=== PATIENT | male | born 1960 | race Caucasian/White ===

== ENCOUNTER 2020-07-16 02:39 | Inpatient (IN) | payer MEDICAID, SELFPAY ==
[~2020-07-16] VITALS: Ht 177.8 cm; Wt 95.5 kg
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
[2020-07-16] MEDS ORDERED: PIPERACILLIN/TAZO/PMX 3.375GM 50 ML ONE (02:55)
[2020-07-16] MEDS ORDERED: ACETAMINOPHEN 500 MG TABLET ONE (02:56)
[2020-07-16] MEDS ORDERED: ONDANSETRON 2MG/ML, 2ML IVPush ONE (03:00)
[2020-07-16] MEDS ORDERED: VANCOMYCIN PER PHARMACY MC PRN ×2 (03:00→04:30)
[2020-07-16] MEDS ORDERED: VANCOMYCIN 1,800 MG in SODIUM CHLORIDE 0.9% 250 ML IV ONE (03:00)
[2020-07-16] MEDS ORDERED: PIPERACILLIN/TAZO/PMX 3.375GM 50 ML IV ONE (03:00)
[2020-07-16] MEDS ORDERED: MORPHINE SULFATE 4 MG/ML, 1ML IVPush ONE (03:00)
[2020-07-16] MEDS ORDERED: ACETAMINOPHEN 500 MG TABLET PO ONE (03:00)
[2020-07-16] MEDS ORDERED: MORPHINE SULFATE 4 MG/ML, 1ML ONE (03:04)
[2020-07-16] MEDS ORDERED: ONDANSETRON 2MG/ML, 2ML ONE (03:04)
[2020-07-16 03:51] LABS: ANION GAP 10 mmol/L (5-15); CALCIUM 9.5 mg/dL (8.5-10.1); CHLORIDE 100 mmol/L (98-107); CREATININE 1.32 mg/dL (0.7-1.3)
--- NOTE | 2020-07-16 03:52 | NUR ---
Charting continued on [employer] at this time. See paper charting for downtime notes and medication administered up until this time.
[2020-07-16 03:55] LABS: MEAN CORPUSCULAR HGB CONC 33.3 g/dL (33.2-36.2); MEAN PLATELET VOLUME 9.1 fL (7.4-10.4); PLATELET COUNT 235 x10^3/uL (130-400); RED BLOOD COUNT 5.17 x10^6/uL (4.38-5.82)
--- NOTE | 2020-07-16 04:12 | NUR ---
PRAVIN CERVANTES, PTS , CALLED AND WOULD LIKE PHONE NUMBER ON CHART -
[2020-07-16 04:18] LABS: MD YES
[2020-07-16 04:20] LABS: <PLATELET ESTIMATE> ADEQUATE; <PLT MORPHOLOGY> NORMAL PLT MORPH; <RBC MORPHOLOGY> NORMAL; BAND#(MANUAL) 2.26 x10^3/uL; BANDS%(MANUAL) 11 % (0-7); LYMPH#(MANUAL) 1.64 x10^3/uL (1-3.4); LYMPHS% (MANUAL) 8 % (22-44); MONOS#(MANUAL) 0.41 x10^3/uL (0.3-2.7); MONOS% (MANUAL) 2 % (2-9); SEGS% (MANUAL) 79 % (42-75)
[2020-07-16] MEDS ORDERED: PROMETHAZINE 25 MG/ML, 1ML IM PRN (04:30)
[2020-07-16] MEDS ORDERED: BISACODYL 10 MG SUPP PR PRN (04:30)
[2020-07-16] MEDS ORDERED: OMNIPAQUE 350 MG/ML, 100ML BOTTLE ONE (04:30)
[2020-07-16] MEDS ORDERED: SODIUM CHLORIDE 0.9% 1,000ML IVBOLUS ONE (04:30)
[2020-07-16] MEDS ORDERED: ONDANSETRON ODT 4 MG PO PRN (04:30)
[2020-07-16] MEDS ORDERED: ONDANSETRON 2MG/ML, 2ML IVPush PRN (04:30)
[2020-07-16] MEDS ORDERED: HEPARIN 5,000 UNITS/ML, 1ML ONE (04:46)
[2020-07-16] MEDS ORDERED: NICOTINE 7 MG/24 HR PATCH.TD24 ONE (04:46)
[2020-07-16] MEDS: HEPARIN 5,000 UNITS/ML, 1ML SQ SCH ×3 (04:53→21:08)
[2020-07-16] MEDS: SODIUM CHLORIDE 0.9% 1,000 ML IV SCH ×2 (04:53→06:24)
[2020-07-16 04:58] LABS: HCT (SEDRATE) 44.8 % (39.2-51.8)
[2020-07-16] MEDS ORDERED: INSULIN GLARGINE 100 UNITS/ML, PEN SQ-INSULIN SCH (05:00)
--- NOTE | 2020-07-16 05:05 | NUR ---
Called and requested tanisha pen from pharmacy, was informed we would be called once it is ready
[2020-07-16] MEDS ORDERED: NEOSPORIN OINT. PKT 1 PACKET ONE (05:10)
[2020-07-16 05:12] LABS: FREE T4 (FREE THYROXINE) 1.28 ng/dL (0.76-1.46)
[2020-07-16] MEDS: NICOTINE 7 MG/24 HR PATCH.TD24 TD SCH (05:24)
--- NOTE | 2020-07-16 05:30 | NUR ---
Wound care provided to right ankle. wounds cleansed and bacatracin applied with nonstick dressing and gauze. Wound cultured and sent to lab.
--- NOTE | 2020-07-16 05:44 | NUR ---
Called to update pt , Rebeca, per request. Unavailable at this time, brief voicemail left informed her pt is now being admitted inpatient.
--- NOTE | 2020-07-16 05:45 | NUR ---
Report called to Nicole OCONNOR to assume care upon transfer to [facility]
[2020-07-16 06:07] VITALS: BP 115/73
[2020-07-16] MEDS ORDERED: PHARMACOKINETIC MONITORING MC PRN (06:30)
[2020-07-16] MEDS ORDERED: PHARMACOKINETIC CONSULTATION MC ONE (06:30)
[2020-07-16 07:18] VITALS: BP 123/78
[2020-07-16] MEDS: INSULIN LISPRO 100 UNITS/ML, PEN SQ-INSULIN SCH ×4 (07:45→21:10)
[2020-07-16] MEDS: PIPERACILLIN/TAZO/PMX 3.375GM 50 ML IV SCH ×3 (09:52→21:26)
[2020-07-16] MEDS: INSULIN GLARGINE 100 UNITS/ML, PEN SQ-INSULIN SCH ×2 (10:22→21:09)
[2020-07-16] MEDS ORDERED: IBUPROFEN 800 MG TABLET PO PRN (11:00)
[2020-07-16] MEDS ORDERED: IBUP-1223 PO (11:05)
[2020-07-16] MEDS: morphine SULFATE 10 MG/ML, 1ML IVPush PRN ×2 (11:54→18:05)
[2020-07-16 15:14] VITALS: BP 131/82
[2020-07-16] MEDS: OXYcodone IR 5MG TABLET PO PRN (17:29)
[2020-07-16 18:45] VITALS: BP 147/78
[2020-07-16] MEDS ORDERED: VANCOMYCIN 1,800 MG in SODIUM CHLORIDE 0.9% 250 ML IV SCH (21:00)
[2020-07-16 21:34] VITALS: BP 126/79
[2020-07-17 00:23] VITALS: BP 123/83
[2020-07-17] MEDS: PIPERACILLIN/TAZO/PMX 3.375GM 50 ML IV SCH ×2 (03:39→09:11)
[2020-07-17 05:29] LABS: MEAN CORPUSCULAR HEMOGLOBIN 28.9 pg (27.5-34.5); MEAN CORPUSCULAR VOLUME 87.8 fL (81-97); MEAN PLATELET VOLUME 8.8 fL (7.4-10.4); PLATELET COUNT 175 x10^3/uL (130-400); RED BLOOD COUNT 4.77 x10^6/uL (4.38-5.82); RED CELL DISTRIBUTION WIDTH 13.9 % (9.4-14.8)
[2020-07-17] MEDS: HEPARIN 5,000 UNITS/ML, 1ML SQ SCH ×3 (05:29→23:00)
[2020-07-17 05:36] LABS: CHLORIDE 103 mmol/L (98-107)
[2020-07-17 05:45] LABS: ALANINE AMINOTRANSFERASE 52 U/L (12-78); ALBUMIN 2.3 g/dL (3.4-5.0); ALKALINE PHOSPHATASE 102 U/L (45-117); ANION GAP 6 mmol/L (5-15); BILIRUBIN,TOTAL 0.9 mg/dL (0.2-1.0); CALCIUM 9.4 mg/dL (8.5-10.1); CHOL/HDL RATIO 3.4; CHOLESTEROL, TOTAL 96 mg/dL (140-239); CREATININE 1.15 mg/dL (0.7-1.3); HDL CHOL % 29 % (26-37); HDL CHOLESTEROL (DIRECT) 28 mg/dL (40-60); LDL CHOLESTEROL,CALCULATED 43 mg/dL (54-169); LDL/HDL RATIO 1.5 (0.5-3.0); TOTAL PROTEIN 6.5 g/dL (6.4-8.2); TRIGLYCERIDES 124 mg/dL (50-200); VLDL CHOLESTEROL 25 mg/dL (0-25)
[2020-07-17 05:49] LABS: MD YES
[2020-07-17 05:55] LABS: <RBC MORPHOLOGY> NORMAL; BAND#(MANUAL) 2.86 x10^3/uL; BANDS%(MANUAL) 17 % (0-7); LYMPH#(MANUAL) 2.02 x10^3/uL (1-3.4); LYMPHS% (MANUAL) 12 % (22-44); MONOS#(MANUAL) 1.01 x10^3/uL (0.3-2.7); MONOS% (MANUAL) 6 % (2-9); SEG#(MANUAL) 10.92 x10^3/uL (1.8-6.8); SEGS% (MANUAL) 65 % (42-75)
[2020-07-17 05:56] LABS: <PLATELET ESTIMATE> ADEQUATE; <PLT MORPHOLOGY> NORMAL PLT MORPH
[2020-07-17 09:10] VITALS: BP 137/97
[2020-07-17] MEDS: NICOTINE 7 MG/24 HR PATCH.TD24 TD SCH (09:11)
[2020-07-17] MEDS: INSULIN LISPRO 100 UNITS/ML, PEN SQ-INSULIN SCH ×4 (09:12→23:00)
[2020-07-17] MEDS: INSULIN GLARGINE 100 UNITS/ML, PEN SQ-INSULIN SCH ×2 (09:12→23:00)
[2020-07-17 13:59] VITALS: BP 144/91
[2020-07-17] MEDS: OXYcodone IR 5MG TABLET PO PRN (17:43)
[2020-07-17] MEDS: DAPTOMYCIN IVPB SCH (17:43)
[2020-07-17] MEDS: SODIUM CHLORIDE 0.9% IVPB SCH (17:43)
[2020-07-17 20:08] VITALS: BP 118/80
[2020-07-18 01:09] VITALS: BP 150/99
[2020-07-18] MEDS: OXYcodone IR 5MG TABLET PO PRN ×3 (04:33→21:46)
[2020-07-18 05:17] LABS: MEAN CORPUSCULAR HEMOGLOBIN 29.1 pg (27.5-34.5); MEAN CORPUSCULAR HGB CONC 32.9 g/dL (33.2-36.2); MEAN CORPUSCULAR VOLUME 88.5 fL (81-97); MEAN PLATELET VOLUME 9.1 fL (7.4-10.4); PLATELET COUNT 190 x10^3/uL (130-400); RED BLOOD COUNT 4.82 x10^6/uL (4.38-5.82); RED CELL DISTRIBUTION WIDTH 13.3 % (9.4-14.8)
[2020-07-18 05:29] LABS: ANION GAP 10 mmol/L (5-15); CALCIUM 9.4 mg/dL (8.5-10.1); CHLORIDE 103 mmol/L (98-107)
[2020-07-18 05:32] LABS: CREATINE KINASE, TOTAL 37 U/L (39-308); CREATININE 0.72 mg/dL (0.7-1.3)
[2020-07-18 06:01] LABS: MD YES
[2020-07-18 06:04] LABS: <PLATELET ESTIMATE> ADEQUATE; <PLT MORPHOLOGY> NORMAL PLT MORPH; <RBC MORPHOLOGY> NORMAL; BAND#(MANUAL) 1.52 x10^3/uL; BANDS%(MANUAL) 9 % (0-7); LYMPH#(MANUAL) 1.35 x10^3/uL (1-3.4); LYMPHS% (MANUAL) 8 % (22-44); MONOS#(MANUAL) 0.85 x10^3/uL (0.3-2.7); MONOS% (MANUAL) 5 % (2-9); SEG#(MANUAL) 13.18 x10^3/uL (1.8-6.8); SEGS% (MANUAL) 78 % (42-75)
[2020-07-18] MEDS ORDERED: POTASSIUM PHOSPHATE 44 MEQ in SODIUM CHLORIDE 0.9% 500 ML IV ONE (08:00)
[2020-07-18 08:14] VITALS: BP 149/107
[2020-07-18] MEDS: HEPARIN 5,000 UNITS/ML, 1ML SQ SCH ×2 (08:20→17:27)
[2020-07-18] MEDS: INSULIN LISPRO 100 UNITS/ML, PEN SQ-INSULIN SCH ×4 (08:20→21:00)
[2020-07-18] MEDS: INSULIN GLARGINE 100 UNITS/ML, PEN SQ-INSULIN SCH ×2 (08:21→21:01)
[2020-07-18] MEDS: NICOTINE 7 MG/24 HR PATCH.TD24 TD SCH (08:21)
[2020-07-18 10:12] VITALS: BP 140/83
[2020-07-18] MEDS ORDERED: GADOTERATE 10 MMOL/20 ML VIAL ONE (11:48)
[2020-07-18 13:01] VITALS: BP 145/79
[2020-07-18] MEDS: DAPTOMYCIN IVPB SCH (18:07)
[2020-07-18] MEDS: SODIUM CHLORIDE 0.9% IVPB SCH (18:07)
[2020-07-18 18:36] VITALS: BP 157/100
[2020-07-19 01:03] VITALS: BP 141/92
[2020-07-19] MEDS: HEPARIN 5,000 UNITS/ML, 1ML SQ SCH ×3 (02:04→17:21)
[2020-07-19 05:56] LABS: MEAN CORPUSCULAR HEMOGLOBIN 29.1 pg (27.5-34.5); MEAN CORPUSCULAR HGB CONC 33.2 g/dL (33.2-36.2); MEAN CORPUSCULAR VOLUME 87.8 fL (81-97); MEAN PLATELET VOLUME 9.2 fL (7.4-10.4); PLATELET COUNT 205 x10^3/uL (130-400); RED BLOOD COUNT 4.65 x10^6/uL (4.38-5.82); RED CELL DISTRIBUTION WIDTH 13.2 % (9.4-14.8)
[2020-07-19 06:05] LABS: CHLORIDE 102 mmol/L (98-107)
[2020-07-19 06:11] LABS: ALBUMIN 1.7 g/dL (3.4-5.0); ANION GAP 9 mmol/L (5-15); CALCIUM 9.3 mg/dL (8.5-10.1); CREATININE 0.71 mg/dL (0.7-1.3)
[2020-07-19 06:43] LABS: BASOPHILS # (AUTO) 0.04 x10^3/uL (0-0.1); BASOPHILS % (AUTO) 0 % (0-1); EOSINOPHILS # (AUTO) 0.01 x10^3/uL (0-0.4); EOSINOPHILS % (AUTO) 0 % (1-7); LYMPHOCYTES # (AUTO) 1.61 x10^3/uL (1-3.4); LYMPHOCYTES % (AUTO) 9 % (22-44); MONOCYTES # (AUTO) 0.92 x10^3/uL (0.2-0.8); MONOCYTES % (AUTO) 5 % (2-9); NEUTROPHILS # (AUTO) 15.54 x10^3/uL (1.8-6.8); NEUTROPHILS % (AUTO) 86 % (42-75)
[2020-07-19 06:57] VITALS: BP 146/95
[2020-07-19 07:02] LABS: MD SCAN
[2020-07-19] MEDS: NICOTINE 7 MG/24 HR PATCH.TD24 TD SCH (09:16)
[2020-07-19] MEDS: INSULIN GLARGINE 100 UNITS/ML, PEN SQ-INSULIN SCH ×2 (09:17→19:54)
[2020-07-19] MEDS: INSULIN LISPRO 100 UNITS/ML, PEN SQ-INSULIN SCH ×4 (09:17→19:54)
[2020-07-19] MEDS ORDERED: SODIUM PHOSPHATE 30 MMOL in SODIUM CHLORIDE 0.9% 500 ML IV ONE (09:30)
[2020-07-19] MEDS: DOCUSATE 100 MG CAPSULE PO PRN (12:48)
[2020-07-19 13:37] VITALS: BP 166/84
[2020-07-19] MEDS: SODIUM CHLORIDE 0.9% IVPB SCH (17:22)
[2020-07-19] MEDS: DAPTOMYCIN IVPB SCH (17:22)
[2020-07-19] MEDS: OXYcodone IR 5MG TABLET PO PRN (18:15)
[2020-07-19] MEDS: POLYETHYLENE GLYCOL 17 GM PACKET PO PRN (18:15)
[2020-07-19 19:23] VITALS: BP 167/102
[2020-07-20 00:24] VITALS: BP 165/100
[2020-07-20] MEDS: hydrALAzine 20 MG/ML, 1ML IVPush PRN ×2 (01:03→20:38)
[2020-07-20] MEDS: HEPARIN 5,000 UNITS/ML, 1ML SQ SCH ×3 (01:09→18:07)
[2020-07-20 03:51] VITALS: BP 153/95
[2020-07-20 04:48] LABS: MEAN CORPUSCULAR HEMOGLOBIN 28.5 pg (27.5-34.5); MEAN CORPUSCULAR VOLUME 89.1 fL (81-97); MEAN PLATELET VOLUME 8.5 fL (7.4-10.4); PLATELET COUNT 267 x10^3/uL (130-400); RED BLOOD COUNT 4.71 x10^6/uL (4.38-5.82); RED CELL DISTRIBUTION WIDTH 13.9 % (9.4-14.8)
[2020-07-20 05:00] LABS: ALBUMIN 1.6 g/dL (3.4-5.0); ANION GAP 12 mmol/L (5-15); CALCIUM 9.4 mg/dL (8.5-10.1); CHLORIDE 101 mmol/L (98-107); CREATININE 0.64 mg/dL (0.7-1.3)
[2020-07-20 05:55] LABS: MD YES
[2020-07-20 05:56] LABS: LYMPH#(MANUAL) 1.88 x10^3/uL (1-3.4); LYMPHS% (MANUAL) 9 % (22-44); MONOS#(MANUAL) 1.25 x10^3/uL (0.3-2.7); MONOS% (MANUAL) 6 % (2-9); SEG#(MANUAL) 17.77 x10^3/uL (1.8-6.8); SEGS% (MANUAL) 85 % (42-75)
[2020-07-20 05:57] LABS: <PLATELET ESTIMATE> ADEQUATE; <PLT MORPHOLOGY> NORMAL PLT MORPH; <RBC MORPHOLOGY> NORMAL; PMNS WITH VACUOLES 1+
[2020-07-20 06:30] VITALS: BP 154/79
[2020-07-20] MEDS: INSULIN LISPRO 100 UNITS/ML, PEN SQ-INSULIN SCH ×6 (08:06→20:38)
[2020-07-20] MEDS ORDERED: POTASSIUM PHOSPHATE 44 MEQ in SODIUM CHLORIDE 0.9% 500 ML IV ONE (10:00)
[2020-07-20] MEDS: NICOTINE 7 MG/24 HR PATCH.TD24 TD SCH (10:04)
[2020-07-20 14:30] VITALS: BP 154/78
[2020-07-20] MEDS: OXYcodone IR 5MG TABLET PO PRN (15:49)
[2020-07-20] MEDS: SODIUM CHLORIDE 0.9% IVPB SCH (18:07)
[2020-07-20] MEDS: DAPTOMYCIN IVPB SCH (18:07)
[2020-07-20 19:31] VITALS: BP 168/110
[2020-07-20] MEDS ORDERED: INSULIN GLARGINE 100 UNITS/ML, PEN SQ-INSULIN SCH (21:00)
[2020-07-21 00:45] VITALS: BP 119/70
[2020-07-21 00:53] VITALS: BP 144/94
[2020-07-21] MEDS: HEPARIN 5,000 UNITS/ML, 1ML SQ SCH ×2 (01:27→08:02)
[2020-07-21 05:17] LABS: MEAN CORPUSCULAR HGB CONC 33.1 g/dL (33.2-36.2); MEAN CORPUSCULAR VOLUME 87.8 fL (81-97); PLATELET COUNT 275 x10^3/uL (130-400); RED BLOOD COUNT 4.44 x10^6/uL (4.38-5.82); RED CELL DISTRIBUTION WIDTH 14.1 % (9.4-14.8)
[2020-07-21 05:27] LABS: CHLORIDE 100 mmol/L (98-107)
[2020-07-21 05:43] LABS: ALANINE AMINOTRANSFERASE 39 U/L (12-78); ALBUMIN 1.4 g/dL (3.4-5.0); ALKALINE PHOSPHATASE 140 U/L (45-117); ANION GAP 10 mmol/L (5-15); BILIRUBIN,TOTAL 1.3 mg/dL (0.2-1.0); CALCIUM 9.6 mg/dL (8.5-10.1); CREATINE KINASE, TOTAL 25 U/L (39-308); CREATININE 0.73 mg/dL (0.7-1.3); TOTAL PROTEIN 6.1 g/dL (6.4-8.2)
[2020-07-21 05:53] LABS: MD YES
[2020-07-21 05:56] LABS: BAND#(MANUAL) 2.26 x10^3/uL; BANDS%(MANUAL) 11 % (0-7); LYMPH#(MANUAL) 1.44 x10^3/uL (1-3.4); LYMPHS% (MANUAL) 7 % (22-44); METAMYELOCYTES# (MANUAL) 0.41 x10^3/uL (0-0); METAMYELOCYTES% (MANUAL) 2 % (0-1); MONOS#(MANUAL) 2.05 x10^3/uL (0.3-2.7); MONOS% (MANUAL) 10 % (2-9); SEG#(MANUAL) 14.35 x10^3/uL (1.8-6.8); SEGS% (MANUAL) 70 % (42-75)
[2020-07-21 05:58] LABS: <PLATELET ESTIMATE> ADEQUATE; POLYCHROMASIA 1+
[2020-07-21 05:59] LABS: GIANT PLATELETS 1+; LARGE PLATELETS 1+
[2020-07-21 07:50] VITALS: BP 148/99
[2020-07-21] MEDS: NICOTINE 7 MG/24 HR PATCH.TD24 TD SCH (08:00)
[2020-07-21] MEDS: INSULIN LISPRO 100 UNITS/ML, PEN SQ-INSULIN SCH ×6 (08:02→21:28)
[2020-07-21] MEDS: INSULIN GLARGINE 100 UNITS/ML, PEN SQ-INSULIN SCH ×3 (08:02→21:28)
[2020-07-21 10:10] VITALS: BP 139/94
[2020-07-21 13:16] VITALS: BP 143/94
[2020-07-21] MEDS: morphine SULFATE 10 MG/ML, 1ML IVPush PRN (13:42)
[2020-07-21] MEDS: DAPTOMYCIN 800 MG in SODIUM CHLORIDE 0.9% 100 ML IVPB SCH (16:46)
[2020-07-21 19:59] VITALS: BP 144/90
[2020-07-21] MEDS ORDERED: ENOXAPARIN 40 MG/0.4 ML SQ SCH (21:00)
[2020-07-21] MEDS: POLYETHYLENE GLYCOL 17 GM PACKET PO SCH (21:28)
[2020-07-21] MEDS: SENNOSIDES 8.8 MG/5 ML ORAL SOL PO SCH (21:29)
[2020-07-22] MEDS: OXYcodone IR 5MG TABLET PO PRN (00:19)
[2020-07-22 01:45] VITALS: BP 125/74
[2020-07-22 06:04] LABS: CHLORIDE 103 mmol/L (98-107)
[2020-07-22 06:08] LABS: MEAN CORPUSCULAR HEMOGLOBIN 28.5 pg (27.5-34.5); MEAN CORPUSCULAR HGB CONC 32.2 g/dL (33.2-36.2); MEAN CORPUSCULAR VOLUME 88.4 fL (81-97); PLATELET COUNT 303 x10^3/uL (130-400); RED BLOOD COUNT 3.52 x10^6/uL (4.38-5.82)
[2020-07-22 06:17] LABS: ANION GAP 6 mmol/L (5-15); CALCIUM 9.4 mg/dL (8.5-10.1); CREATININE 0.85 mg/dL (0.7-1.3)
[2020-07-22 06:40] LABS: MD YES
[2020-07-22 06:41] LABS: BAND#(MANUAL) 1.58 x10^3/uL; BANDS%(MANUAL) 8 % (0-7); LYMPH#(MANUAL) 1.78 x10^3/uL (1-3.4); LYMPHS% (MANUAL) 9 % (22-44); METAMYELOCYTES% (MANUAL) 1 % (0-1)
[2020-07-22 06:42] LABS: HYPOCHROMIA 1+; MONOS#(MANUAL) 0.59 x10^3/uL (0.3-2.7); MONOS% (MANUAL) 3 % (2-9); SEG#(MANUAL) 15.64 x10^3/uL (1.8-6.8); SEGS% (MANUAL) 79 % (42-75)
[2020-07-22 06:43] LABS: <PLATELET ESTIMATE> ADEQUATE; LARGE PLATELETS 1+
[2020-07-22] MEDS: INSULIN LISPRO 100 UNITS/ML, PEN SQ-INSULIN SCH ×7 (07:00→21:00)
[2020-07-22] MEDS: POLYETHYLENE GLYCOL 17 GM PACKET PO SCH ×2 (08:00→21:00)
[2020-07-22] MEDS: SENNOSIDES 8.8 MG/5 ML ORAL SOL PO SCH ×2 (08:00→21:00)
[2020-07-22] MEDS: NICOTINE 7 MG/24 HR PATCH.TD24 TD SCH (08:00)
[2020-07-22 08:03] VITALS: BP 117/74
[2020-07-22] MEDS: INSULIN GLARGINE 100 UNITS/ML, PEN SQ-INSULIN SCH ×2 (08:49→20:59)
[2020-07-22] MEDS ORDERED: INSULIN LISPRO 100 UNITS/ML, PEN SQ-INSULIN ONE (09:00)
[2020-07-22] MEDS ORDERED: INSULIN GLARGINE 100 UNITS/ML, PEN SQ-INSULIN ONE (09:00)
[2020-07-22] MEDS ORDERED: INSULIN LISPRO 100 UNITS/ML, PEN SQ-INSULIN SCH (12:30)
[2020-07-22] MEDS ORDERED: BUPIVACAINE/PF 0.5% ONE (13:28)
[2020-07-22] MEDS ORDERED: CHLORHEXIDINE 15 ML UDC MM ONE (13:30)
[2020-07-22] MEDS ORDERED: FENTANYL PF 250 MCG/5ML ONE (13:39)
[2020-07-22] MEDS ORDERED: MIDAZOLAM 1 MG/ML, 2ML ONE (13:39)
[2020-07-22] MEDS ORDERED: SODIUM PHOSPHATE 30 MMOL in SODIUM CHLORIDE 0.9% 500 ML IV ONE (15:00)
[2020-07-22] MEDS ORDERED: LABETALOL 5MG/ML, 20ML IV PRN (16:00)
[2020-07-22] MEDS ORDERED: METOCLOPRAMIDE 5 MG/ML, 2ML IV PRN (16:00)
[2020-07-22] MEDS ORDERED: ONDANSETRON 2MG/ML, 2ML IVPush PRN (16:00)
[2020-07-22] MEDS ORDERED: FENTANYL PF 100 MCG/2ML IV PRN (16:00)
[2020-07-22] MEDS ORDERED: ALBUTEROL SULFATE 2.5 MG/3 ML NPPB PRN (16:00)
[2020-07-22] MEDS ORDERED: MEPERIDINE/PF 25MG/0.5ML IVPush PRN (16:00)
[2020-07-22] MEDS ORDERED: OXYcodone 5 MG/5 ML ORAL.SOL UDC PO PRN (16:00)
[2020-07-22] MEDS ORDERED: DIAZEPAM 5 MG/ML, 2ML IV PRN ×2 (16:00)
[2020-07-22] MEDS ORDERED: PROMETHAZINE 25 MG/ML, 1ML IV PRN (16:00)
[2020-07-22] MEDS ORDERED: KETOROLAC 30 MG/1 ML IV PRN (16:00)
[2020-07-22] MEDS ORDERED: HYDROmorphone 1 MG/ML, 1ML INJ IV PRN (16:00)
[2020-07-22] MEDS ORDERED: hydrALAzine 20 MG/ML, 1ML IV PRN (16:00)
[2020-07-22 18:54] VITALS: BP 100/52
[2020-07-22] MEDS: DAPTOMYCIN 800 MG in SODIUM CHLORIDE 0.9% 100 ML IVPB SCH (19:16)
[2020-07-22 19:51] LABS: OCCULT BLOOD POSITIVE (NEGATIVE)
[2020-07-22] MEDS ORDERED: ENOXAPARIN 40 MG/0.4 ML SQ SCH (21:00)
[2020-07-23] VITALS (16 sets, daily range): BP systolic 110–138; BP diastolic 61–83
[2020-07-23 06:29] LABS: ANION GAP 5 mmol/L (5-15); CHLORIDE 110 mmol/L (98-107)
[2020-07-23 06:31] LABS: CREATININE 0.86 mg/dL (0.7-1.3); MEAN CORPUSCULAR HEMOGLOBIN 29.1 pg (27.5-34.5); MEAN CORPUSCULAR VOLUME 88.1 fL (81-97); MEAN PLATELET VOLUME 8.9 fL (7.4-10.4); PLATELET COUNT 259 x10^3/uL (130-400); RED BLOOD COUNT 2.36 x10^6/uL (4.38-5.82); RED CELL DISTRIBUTION WIDTH 14.5 % (9.4-14.8)
[2020-07-23] MEDS: INSULIN LISPRO 100 UNITS/ML, PEN SQ-INSULIN SCH ×7 (07:43→22:13)
[2020-07-23] MEDS: NICOTINE 7 MG/24 HR PATCH.TD24 TD SCH (07:44)
[2020-07-23] MEDS: INSULIN GLARGINE 100 UNITS/ML, PEN SQ-INSULIN SCH ×2 (07:44→22:13)
[2020-07-23] MEDS: POLYETHYLENE GLYCOL 17 GM PACKET PO SCH ×2 (07:44→21:00)
[2020-07-23] MEDS: SENNOSIDES 8.8 MG/5 ML ORAL SOL PO SCH ×2 (07:45→21:00)
[2020-07-23 07:47] LABS: MD YES
[2020-07-23 07:59] LABS: ANISOCYTOSIS 1+; BAND#(MANUAL) 0.99 x10^3/uL; BANDS%(MANUAL) 3 % (0-7); LYMPH#(MANUAL) 1.32 x10^3/uL (1-3.4); LYMPHS% (MANUAL) 4 % (22-44); METAMYELOCYTES# (MANUAL) 0.33 x10^3/uL (0-0); METAMYELOCYTES% (MANUAL) 1 % (0-1); MONOS#(MANUAL) 0.33 x10^3/uL (0.3-2.7); MONOS% (MANUAL) 1 % (2-9); NRBC % (MANUAL) 1 % (0-1); SEG#(MANUAL) 30.03 x10^3/uL (1.8-6.8); SEGS% (MANUAL) 91 % (42-75)
[2020-07-23 08:00] LABS: <PLATELET ESTIMATE> ADEQUATE; HYPOCHROMIA 1+; LARGE PLATELETS 1+
[2020-07-23] MEDS ORDERED: ONDANSETRON 2MG/ML, 2ML ONE (14:30)
[2020-07-23] MEDS ORDERED: SUCCINYLCHOLINE 20 MG/ML, 10ML ONE (14:30)
[2020-07-23] MEDS ORDERED: CEFAZOLIN PMX 1GM/50ML ONE (14:30)
[2020-07-23] MEDS ORDERED: PROPOFOL 10 MG/ML, 100ML IV ONE (14:30)
[2020-07-23] MEDS ORDERED: ROCURONIUM 10 MG/ML,10ML ONE (14:30)
[2020-07-23] MEDS: PANTOPRAZOLE 40 MG IV IVPush SCH (17:57)
[2020-07-23] MEDS: DAPTOMYCIN 800 MG in SODIUM CHLORIDE 0.9% 100 ML IVPB SCH (21:25)
[2020-07-24] VITALS (9 sets, daily range): BP systolic 105–153; BP diastolic 56–75
[2020-07-24] MEDS: ACETAMINOPHEN 325 MG TABLET PO PRN (01:17)
[2020-07-24] MEDS: PANTOPRAZOLE 40 MG IV IVPush SCH ×2 (06:03→17:29)
[2020-07-24 06:15] LABS: ANION GAP 5 mmol/L (5-15); CHLORIDE 105 mmol/L (98-107); CREATININE 0.74 mg/dL (0.7-1.3)
[2020-07-24 06:17] LABS: CREATINE KINASE, TOTAL 67 U/L (39-308)
[2020-07-24 06:21] LABS: MEAN CORPUSCULAR HEMOGLOBIN 28.9 pg (27.5-34.5); MEAN CORPUSCULAR HGB CONC 32.1 g/dL (33.2-36.2); MEAN CORPUSCULAR VOLUME 90.3 fL (81-97); MEAN PLATELET VOLUME 8.9 fL (7.4-10.4); PLATELET COUNT 264 x10^3/uL (130-400); RED CELL DISTRIBUTION WIDTH 14.1 % (9.4-14.8)
[2020-07-24 06:40] LABS: MD YES
[2020-07-24 06:41] LABS: BAND#(MANUAL) 0.91 x10^3/uL; BANDS%(MANUAL) 3 % (0-7); EOS% (MANUAL) 1 % (1-7); LYMPH#(MANUAL) 1.81 x10^3/uL (1-3.4); LYMPHS% (MANUAL) 6 % (22-44); METAMYELOCYTES% (MANUAL) 1 % (0-1); MONOS#(MANUAL) 1.21 x10^3/uL (0.3-2.7); MONOS% (MANUAL) 4 % (2-9); NRBC % (MANUAL) 5 % (0-1); SEG#(MANUAL) 25.67 x10^3/uL (1.8-6.8); SEGS% (MANUAL) 85 % (42-75)
[2020-07-24 06:42] LABS: ANISOCYTOSIS 1+; POLYCHROMASIA 1+; SMUDGE CELLS 1+
[2020-07-24 06:43] LABS: <PLATELET ESTIMATE> ADEQUATE; LARGE PLATELETS 1+
[2020-07-24] MEDS: INSULIN LISPRO 100 UNITS/ML, PEN SQ-INSULIN SCH ×7 (07:00→20:32)
[2020-07-24] MEDS: NICOTINE 7 MG/24 HR PATCH.TD24 TD SCH (08:49)
[2020-07-24] MEDS: INSULIN GLARGINE 100 UNITS/ML, PEN SQ-INSULIN SCH ×2 (08:49→20:32)
[2020-07-24] MEDS: SENNOSIDES 8.8 MG/5 ML ORAL SOL PO SCH ×2 (08:51→20:33)
[2020-07-24] MEDS: POLYETHYLENE GLYCOL 17 GM PACKET PO SCH ×2 (08:51→20:33)
[2020-07-24] MEDS ORDERED: CHLORHEXIDINE 15 ML UDC MM ONE (12:30)
[2020-07-24] MEDS ORDERED: PROPOFOL 10 MG/ML, 20ML ONE ×2 (13:05)
[2020-07-24] MEDS ORDERED: PROPOFOL 50 ML ONE (13:23)
[2020-07-24] MEDS ORDERED: MEPERIDINE/PF 25MG/0.5ML IVPush PRN (13:30)
[2020-07-24] MEDS ORDERED: OXYcodone 5 MG/5 ML ORAL.SOL UDC PO PRN (13:30)
[2020-07-24] MEDS ORDERED: FENTANYL PF 100 MCG/2ML IV PRN (13:30)
[2020-07-24] MEDS ORDERED: EPHEDRINE 50 MG/ML, 1ML IVPush PRN (13:30)
[2020-07-24] MEDS ORDERED: HYDROmorphone 1 MG/ML, 1ML INJ IVPush PRN (13:30)
[2020-07-24] MEDS ORDERED: hydrALAzine 20 MG/ML, 1ML IV PRN (13:30)
[2020-07-24] MEDS ORDERED: LABETALOL 5MG/ML, 20ML IV PRN (13:30)
[2020-07-24] MEDS ORDERED: PROMETHAZINE 25 MG/ML, 1ML IVPush PRN (13:30)
[2020-07-24] MEDS ORDERED: CEFTAROLINE 600 MG in SODIUM CHLORIDE 0.9% 100 ML IV SCH (13:30)
[2020-07-24] MEDS ORDERED: ACETAMINOPHEN 325 MG TABLET PO PRN (13:30)
[2020-07-24] MEDS ORDERED: ONDANSETRON 2MG/ML, 2ML IVPush PRN (13:30)
[2020-07-24] MEDS ORDERED: EPINEPHRINE SYRINGE 0.1 MG/ML, 10ML ONE (14:09)
[2020-07-24] MEDS ORDERED: POTASSIUM CHLORIDE 20 MEQ PACKET PO ONE (15:00)
[2020-07-24] MEDS: DAPTOMYCIN 800 MG in SODIUM CHLORIDE 0.9% 100 ML IVPB SCH (20:31)
[2020-07-25] VITALS (16 sets, daily range): BP systolic 107–135; BP diastolic 64–88
[2020-07-25] MEDS: CEFTAROLINE 600 MG in SODIUM CHLORIDE 0.9% 100 ML IV SCH ×2 (02:40→15:03)
[2020-07-25] MEDS: PANTOPRAZOLE 40 MG IV IVPush SCH ×2 (05:21→17:16)
[2020-07-25] MEDS: ACETAMINOPHEN 325 MG TABLET PO PRN (05:32)
[2020-07-25 05:49] LABS: ANION GAP 5 mmol/L (5-15); CHLORIDE 105 mmol/L (98-107)
[2020-07-25 06:06] LABS: MEAN CORPUSCULAR HEMOGLOBIN 29.8 pg (27.5-34.5); MEAN CORPUSCULAR HGB CONC 33.5 g/dL (33.2-36.2); MEAN CORPUSCULAR VOLUME 89.1 fL (81-97); MEAN PLATELET VOLUME 8.8 fL (7.4-10.4); PLATELET COUNT 252 x10^3/uL (130-400); RED BLOOD COUNT 2.56 x10^6/uL (4.38-5.82); RED CELL DISTRIBUTION WIDTH 14.2 % (9.4-14.8)
[2020-07-25 06:32] LABS: MD YES
[2020-07-25 06:33] LABS: BAND#(MANUAL) 0.51 x10^3/uL; BANDS%(MANUAL) 2 % (0-7); EOS#(MANUAL) 0.26 x10^3/uL (0.0-0.4); EOS% (MANUAL) 1 % (1-7); LYMPH#(MANUAL) 0.77 x10^3/uL (1-3.4); LYMPHS% (MANUAL) 3 % (22-44); NRBC % (MANUAL) 3 % (0-1); SEGS% (MANUAL) 86 % (42-75)
[2020-07-25 06:34] LABS: <PLATELET ESTIMATE> ADEQUATE; ANISOCYTOSIS 1+; LARGE PLATELETS 1+; MONOS% (MANUAL) 7 % (2-9); MYELOCYTES# (MANUAL) 0.26 x10^3/uL (0-0); MYELOCYTES% (MANUAL) 1 % (0-0); POLYCHROMASIA 1+; SMUDGE CELLS 1+
[2020-07-25] MEDS: INSULIN LISPRO 100 UNITS/ML, PEN SQ-INSULIN SCH ×7 (07:00→22:00)
[2020-07-25] MEDS ORDERED: POTASSIUM CHLORIDE 20 MEQ TAB.ER.PRT PO ONE (09:00)
[2020-07-25] MEDS: SENNOSIDES 8.8 MG/5 ML ORAL SOL PO SCH ×2 (09:00→21:59)
[2020-07-25] MEDS: POLYETHYLENE GLYCOL 17 GM PACKET PO SCH ×2 (10:02→21:59)
[2020-07-25] MEDS: NICOTINE 7 MG/24 HR PATCH.TD24 TD SCH (10:02)
[2020-07-25] MEDS: INSULIN GLARGINE 100 UNITS/ML, PEN SQ-INSULIN SCH ×2 (10:09→22:00)
[2020-07-25] MEDS: OXYcodone IR 5MG TABLET PO PRN (13:58)
[2020-07-25] MEDS: DAPTOMYCIN 800 MG in SODIUM CHLORIDE 0.9% 100 ML IVPB SCH (20:13)
[2020-07-25] MEDS: PANTOPRAZOLE 40MG TABLET PO SCH (21:59)
[2020-07-26 02:21] VITALS: BP 112/70
[2020-07-26] MEDS: CEFTAROLINE 600 MG in SODIUM CHLORIDE 0.9% 100 ML IV SCH ×2 (02:28→15:05)
[2020-07-26 06:19] LABS: MEAN CORPUSCULAR HEMOGLOBIN 30.2 pg (27.5-34.5); MEAN CORPUSCULAR HGB CONC 33.9 g/dL (33.2-36.2); MEAN CORPUSCULAR VOLUME 89.1 fL (81-97); MEAN PLATELET VOLUME 9.1 fL (7.4-10.4); PLATELET COUNT 246 x10^3/uL (130-400); RED BLOOD COUNT 2.75 x10^6/uL (4.38-5.82); RED CELL DISTRIBUTION WIDTH 14.6 % (9.4-14.8)
[2020-07-26 06:58] LABS: CHLORIDE 105 mmol/L (98-107)
[2020-07-26] MEDS: INSULIN LISPRO 100 UNITS/ML, PEN SQ-INSULIN SCH ×7 (07:00→22:05)
[2020-07-26 07:03] LABS: ANION GAP 4 mmol/L (5-15); CREATININE 0.67 mg/dL (0.7-1.3)
[2020-07-26 07:04] LABS: MD YES
[2020-07-26 07:07] LABS: ANISOCYTOSIS 1+; BAND#(MANUAL) 1.79 x10^3/uL; BANDS%(MANUAL) 8 % (0-7); EOS#(MANUAL) 0.45 x10^3/uL (0.0-0.4); EOS% (MANUAL) 2 % (1-7); LYMPH#(MANUAL) 0.45 x10^3/uL (1-3.4); LYMPHS% (MANUAL) 2 % (22-44); MONOS#(MANUAL) 1.12 x10^3/uL (0.3-2.7); MONOS% (MANUAL) 5 % (2-9); NRBC % (MANUAL) 1 % (0-1); POLYCHROMASIA 1+; SEG#(MANUAL) 18.59 x10^3/uL (1.8-6.8); SEGS% (MANUAL) 83 % (42-75)
[2020-07-26 07:09] LABS: <PLATELET ESTIMATE> ADEQUATE; <PLT MORPHOLOGY> NORMAL PLT MORPH
[2020-07-26] MEDS: SENNOSIDES 8.8 MG/5 ML ORAL SOL PO SCH ×2 (09:00→22:04)
[2020-07-26 09:31] VITALS: BP 127/70
[2020-07-26] MEDS: NICOTINE 7 MG/24 HR PATCH.TD24 TD SCH (09:42)
[2020-07-26] MEDS: POLYETHYLENE GLYCOL 17 GM PACKET PO SCH ×2 (09:42→22:04)
[2020-07-26] MEDS: PANTOPRAZOLE 40MG TABLET PO SCH ×2 (09:42→22:04)
[2020-07-26] MEDS: INSULIN GLARGINE 100 UNITS/ML, PEN SQ-INSULIN SCH ×2 (09:43→22:05)
[2020-07-26 12:06] VITALS: BP 124/71
[2020-07-26 20:44] VITALS: BP 120/69
[2020-07-26] MEDS: DAPTOMYCIN 800 MG in SODIUM CHLORIDE 0.9% 100 ML IVPB SCH (22:04)
[2020-07-27 01:30] VITALS: BP 136/77
[2020-07-27] MEDS: CEFTAROLINE 600 MG in SODIUM CHLORIDE 0.9% 100 ML IV SCH ×2 (03:01→16:07)
[2020-07-27] MEDS: ACETAMINOPHEN 325 MG TABLET PO PRN (03:35)
[2020-07-27 06:52] VITALS: BP 108/66
[2020-07-27 07:13] LABS: ANION GAP 5 mmol/L (5-15); CALCIUM 9.1 mg/dL (8.5-10.1); CHLORIDE 107 mmol/L (98-107)
[2020-07-27 07:14] LABS: CREATININE 0.69 mg/dL (0.7-1.3)
[2020-07-27 07:22] LABS: MEAN CORPUSCULAR HEMOGLOBIN 30.3 pg (27.5-34.5); MEAN CORPUSCULAR HGB CONC 33.7 g/dL (33.2-36.2); MEAN CORPUSCULAR VOLUME 89.8 fL (81-97); MEAN PLATELET VOLUME 9.2 fL (7.4-10.4); PLATELET COUNT 316 x10^3/uL (130-400); RED BLOOD COUNT 2.68 x10^6/uL (4.38-5.82); RED CELL DISTRIBUTION WIDTH 14.9 % (9.4-14.8)
[2020-07-27 07:43] LABS: MD YES
[2020-07-27 07:44] LABS: BAND#(MANUAL) 0.74 x10^3/uL; BANDS%(MANUAL) 4 % (0-7); EOS#(MANUAL) 0.19 x10^3/uL (0.0-0.4); EOS% (MANUAL) 1 % (1-7); LYMPH#(MANUAL) 1.67 x10^3/uL (1-3.4); LYMPHS% (MANUAL) 9 % (22-44); METAMYELOCYTES# (MANUAL) 0.37 x10^3/uL (0-0); METAMYELOCYTES% (MANUAL) 2 % (0-1); MONOS#(MANUAL) 1.49 x10^3/uL (0.3-2.7); MONOS% (MANUAL) 8 % (2-9); SEG#(MANUAL) 14.14 x10^3/uL (1.8-6.8); SEGS% (MANUAL) 76 % (42-75)
[2020-07-27 07:45] LABS: <PLATELET ESTIMATE> ADEQUATE; ANISOCYTOSIS 1+; NRBC % (MANUAL) 1 % (0-1); POLYCHROMASIA 1+
[2020-07-27 07:46] LABS: LARGE PLATELETS 1+
[2020-07-27] MEDS: INSULIN LISPRO 100 UNITS/ML, PEN SQ-INSULIN SCH ×7 (07:47→21:53)
[2020-07-27] MEDS: POLYETHYLENE GLYCOL 17 GM PACKET PO SCH ×2 (08:23→21:00)
[2020-07-27] MEDS: NICOTINE 7 MG/24 HR PATCH.TD24 TD SCH (08:25)
[2020-07-27] MEDS: DOCUSATE 100 MG CAPSULE PO PRN ×2 (08:25→08:26)
[2020-07-27] MEDS: PANTOPRAZOLE 40MG TABLET PO SCH ×2 (08:25→21:51)
[2020-07-27] MEDS: metroNIDAZOLE 500 MG TABLET PO SCH ×2 (08:25→16:08)
[2020-07-27] MEDS: SENNOSIDES 8.8 MG/5 ML ORAL SOL PO SCH ×2 (08:39→21:00)
[2020-07-27] MEDS: INSULIN GLARGINE 100 UNITS/ML, PEN SQ-INSULIN SCH ×2 (08:40→21:53)
[2020-07-27] MEDS: POTASSIUM CHLORIDE 20 MEQ TAB.ER.PRT PO SCH ×3 (10:13→16:19)
[2020-07-27 13:57] VITALS: BP 136/76
[2020-07-27] MEDS: OXYcodone IR 5MG TABLET PO PRN (14:06)
[2020-07-27] MEDS: DAPTOMYCIN 800 MG in SODIUM CHLORIDE 0.9% 100 ML IVPB SCH (22:35)
[2020-07-28 00:40] VITALS: BP 129/75
[2020-07-28] MEDS: metroNIDAZOLE 500 MG TABLET PO SCH ×3 (00:59→17:19)
[2020-07-28] MEDS: ACETAMINOPHEN 325 MG TABLET PO PRN (00:59)
[2020-07-28] MEDS: morphine SULFATE 10 MG/ML, 1ML IVPush PRN (02:15)
[2020-07-28] MEDS: CEFTAROLINE 600 MG in SODIUM CHLORIDE 0.9% 100 ML IV SCH ×3 (04:13→20:22)
[2020-07-28 05:04] LABS: MEAN CORPUSCULAR HGB CONC 33.6 g/dL (33.2-36.2); MEAN CORPUSCULAR VOLUME 89.4 fL (81-97); MEAN PLATELET VOLUME 8.5 fL (7.4-10.4); PLATELET COUNT 383 x10^3/uL (130-400); RED BLOOD COUNT 2.59 x10^6/uL (4.38-5.82); RED CELL DISTRIBUTION WIDTH 15.3 % (9.4-14.8)
[2020-07-28 05:16] LABS: ALBUMIN 1.1 g/dL (3.4-5.0); ANION GAP 5 mmol/L (5-15); CALCIUM 8.6 mg/dL (8.5-10.1); CHLORIDE 107 mmol/L (98-107)
[2020-07-28 05:25] LABS: ALANINE AMINOTRANSFERASE 36 U/L (12-78); ALKALINE PHOSPHATASE 130 U/L (45-117); BILIRUBIN,TOTAL 0.6 mg/dL (0.2-1.0); CREATINE KINASE, TOTAL 108 U/L (39-308); CREATININE 0.68 mg/dL (0.7-1.3); TOTAL PROTEIN 5.2 g/dL (6.4-8.2)
[2020-07-28 05:49] LABS: HCT (SEDRATE) 23.1 % (39.2-51.8)
[2020-07-28 05:51] LABS: MD YES
[2020-07-28 05:53] LABS: <PLATELET ESTIMATE> ADEQUATE; ANISOCYTOSIS 1+; BAND#(MANUAL) 0.56 x10^3/uL; BANDS%(MANUAL) 3 % (0-7); EOS#(MANUAL) 0.19 x10^3/uL (0.0-0.4); EOS% (MANUAL) 1 % (1-7); LYMPH#(MANUAL) 0.93 x10^3/uL (1-3.4); LYMPHS% (MANUAL) 5 % (22-44); METAMYELOCYTES# (MANUAL) 0.19 x10^3/uL (0-0); METAMYELOCYTES% (MANUAL) 1 % (0-1); MONOS#(MANUAL) 1.67 x10^3/uL (0.3-2.7); MONOS% (MANUAL) 9 % (2-9); MYELOCYTES# (MANUAL) 0.19 x10^3/uL (0-0); MYELOCYTES% (MANUAL) 1 % (0-0); NRBC % (MANUAL) 2 % (0-1); POLYCHROMASIA 1+; SEGS% (MANUAL) 80 % (42-75)
[2020-07-28 05:54] LABS: LARGE PLATELETS 1+; TOXIC GRAN 1+
[2020-07-28] MEDS: INSULIN LISPRO 100 UNITS/ML, PEN SQ-INSULIN SCH ×7 (07:43→21:06)
[2020-07-28 07:59] VITALS: BP 127/71
[2020-07-28] MEDS: OXYcodone IR 5MG TABLET PO PRN ×2 (08:44→20:22)
[2020-07-28] MEDS: PANTOPRAZOLE 40MG TABLET PO SCH ×2 (08:44→20:22)
[2020-07-28] MEDS: NICOTINE 7 MG/24 HR PATCH.TD24 TD SCH (08:45)
[2020-07-28] MEDS: POLYETHYLENE GLYCOL 17 GM PACKET PO SCH ×2 (08:46→20:30)
[2020-07-28] MEDS: SENNOSIDES 8.8 MG/5 ML ORAL SOL PO SCH ×2 (08:46→20:30)
[2020-07-28] MEDS: INSULIN GLARGINE 100 UNITS/ML, PEN SQ-INSULIN SCH ×2 (08:49→21:06)
[2020-07-28 13:35] VITALS: BP 134/74
[2020-07-28 19:46] VITALS: BP 135/79
[2020-07-28] MEDS: DAPTOMYCIN 800 MG in SODIUM CHLORIDE 0.9% 100 ML IVPB SCH (22:53)
[2020-07-29] MEDS: metroNIDAZOLE 500 MG TABLET PO SCH ×3 (00:23→16:37)
[2020-07-29 00:24] VITALS: BP 139/76
[2020-07-29] MEDS: CEFTAROLINE 600 MG in SODIUM CHLORIDE 0.9% 100 ML IV SCH ×3 (04:25→20:04)
[2020-07-29 06:09] LABS: MEAN CORPUSCULAR HEMOGLOBIN 29.9 pg (27.5-34.5); MEAN CORPUSCULAR HGB CONC 33.2 g/dL (33.2-36.2); MEAN PLATELET VOLUME 8.5 fL (7.4-10.4); PLATELET COUNT 495 x10^3/uL (130-400); RED BLOOD COUNT 2.61 x10^6/uL (4.38-5.82); RED CELL DISTRIBUTION WIDTH 15.1 % (9.4-14.8)
[2020-07-29 06:12] LABS: CHLORIDE 104 mmol/L (98-107)
[2020-07-29 06:30] LABS: MD YES
[2020-07-29 06:32] LABS: ANISOCYTOSIS 1+; BAND#(MANUAL) 0.95 x10^3/uL; BANDS%(MANUAL) 5 % (0-7); BASOS#(MANUAL) 0.38 x10^3/uL (0-0.1); BASOS% (MANUAL) 2 % (0-1); EOS#(MANUAL) 0.19 x10^3/uL (0.0-0.4); EOS% (MANUAL) 1 % (1-7); LYMPHS% (MANUAL) 9 % (22-44); METAMYELOCYTES# (MANUAL) 0.19 x10^3/uL (0-0); METAMYELOCYTES% (MANUAL) 1 % (0-1); MONOS#(MANUAL) 0.95 x10^3/uL (0.3-2.7); MONOS% (MANUAL) 5 % (2-9); NRBC % (MANUAL) 1 % (0-1); SEG#(MANUAL) 14.55 x10^3/uL (1.8-6.8); SEGS% (MANUAL) 77 % (42-75)
[2020-07-29 06:33] LABS: <PLATELET ESTIMATE> INCREASED; POLYCHROMASIA 1+
[2020-07-29 06:34] LABS: LARGE PLATELETS 1+; TOXIC GRAN 1+
[2020-07-29 06:37] LABS: ALANINE AMINOTRANSFERASE 29 U/L (12-78); ALBUMIN 1.1 g/dL (3.4-5.0); ALKALINE PHOSPHATASE 139 U/L (45-117); ANION GAP 5 mmol/L (5-15); BILIRUBIN,TOTAL 0.5 mg/dL (0.2-1.0); CALCIUM 8.8 mg/dL (8.5-10.1); CREATININE 0.63 mg/dL (0.7-1.3); TOTAL PROTEIN 5.8 g/dL (6.4-8.2)
[2020-07-29 07:58] VITALS: BP 136/74
[2020-07-29] MEDS: INSULIN LISPRO 100 UNITS/ML, PEN SQ-INSULIN SCH ×7 (08:27→20:33)
[2020-07-29] MEDS: POLYETHYLENE GLYCOL 17 GM PACKET PO SCH ×2 (08:28→20:08)
[2020-07-29] MEDS: SENNOSIDES 8.8 MG/5 ML ORAL SOL PO SCH ×2 (08:28→20:05)
[2020-07-29] MEDS: NICOTINE 7 MG/24 HR PATCH.TD24 TD SCH (08:34)
[2020-07-29] MEDS: PANTOPRAZOLE 40MG TABLET PO SCH ×2 (08:34→20:05)
[2020-07-29] MEDS: INSULIN GLARGINE 100 UNITS/ML, PEN SQ-INSULIN SCH ×2 (08:35→20:33)
[2020-07-29] MEDS: DAKIN'S SOLUTION 1/4 STRENGTH 1,000 ML IRRIG SOLN EXT SCH (10:54)
[2020-07-29] MEDS ORDERED: GADOTERATE 10 MMOL/20 ML SYR ONE (11:14)
[2020-07-29 13:51] VITALS: BP 111/68
[2020-07-29] MEDS: morphine SULFATE 10 MG/ML, 1ML IVPush PRN (15:12)
[2020-07-29] MEDS: OXYcodone IR 5MG TABLET PO PRN (20:05)
[2020-07-29 20:12] VITALS: BP 126/73
[2020-07-29 20:29] VITALS: BP 143/80
[2020-07-29] MEDS: DAPTOMYCIN 800 MG in SODIUM CHLORIDE 0.9% 100 ML IVPB SCH (22:38)
[2020-07-30] MEDS: metroNIDAZOLE 500 MG TABLET PO SCH ×4 (00:02→22:57)
[2020-07-30 00:17] VITALS: BP 133/79
[2020-07-30] MEDS: DAKIN'S SOLUTION 1/4 STRENGTH 1,000 ML IRRIG SOLN EXT SCH (01:00)
[2020-07-30] MEDS: CEFTAROLINE 600 MG in SODIUM CHLORIDE 0.9% 100 ML IV SCH ×3 (04:14→21:50)
[2020-07-30] MEDS: INSULIN LISPRO 100 UNITS/ML, PEN SQ-INSULIN SCH ×7 (07:00→22:08)
[2020-07-30 07:27] VITALS: BP 133/78
[2020-07-30] MEDS: PANTOPRAZOLE 40MG TABLET PO SCH ×2 (09:17→21:59)
[2020-07-30] MEDS: INSULIN GLARGINE 100 UNITS/ML, PEN SQ-INSULIN SCH ×2 (09:17→22:08)
[2020-07-30] MEDS: SENNOSIDES 8.8 MG/5 ML ORAL SOL PO SCH ×2 (09:18→22:01)
[2020-07-30] MEDS: POLYETHYLENE GLYCOL 17 GM PACKET PO SCH ×2 (09:19→22:00)
[2020-07-30] MEDS: NICOTINE 7 MG/24 HR PATCH.TD24 TD SCH (09:20)
[2020-07-30 13:48] VITALS: BP 116/67
[2020-07-30 20:29] VITALS: BP 127/72
[2020-07-30] MEDS: OXYcodone IR 5MG TABLET PO PRN (21:58)
[2020-07-30] MEDS: POLYETHYLENE GLYCOL 17 GM PACKET PO PRN (21:59)
[2020-07-30] MEDS: DAPTOMYCIN 800 MG in SODIUM CHLORIDE 0.9% 100 ML IVPB SCH (22:57)
[2020-07-31 00:57] VITALS: BP 112/67
[2020-07-31] MEDS: CEFTAROLINE 600 MG in SODIUM CHLORIDE 0.9% 100 ML IV SCH ×3 (05:45→21:42)
[2020-07-31] MEDS: INSULIN LISPRO 100 UNITS/ML, PEN SQ-INSULIN SCH ×7 (07:00→20:22)
[2020-07-31] MEDS: NICOTINE 7 MG/24 HR PATCH.TD24 TD SCH (08:00)
[2020-07-31 08:34] VITALS: BP 114/70
[2020-07-31] MEDS: POLYETHYLENE GLYCOL 17 GM PACKET PO SCH ×2 (08:59→19:59)
[2020-07-31] MEDS: DAKIN'S SOLUTION 1/4 STRENGTH 1,000 ML IRRIG SOLN EXT SCH (09:00)
[2020-07-31] MEDS: SENNOSIDES 8.8 MG/5 ML ORAL SOL PO SCH ×2 (09:00→19:59)
[2020-07-31] MEDS: metroNIDAZOLE 500 MG TABLET PO SCH ×2 (10:07→18:34)
[2020-07-31] MEDS: PANTOPRAZOLE 40MG TABLET PO SCH ×2 (10:07→19:59)
[2020-07-31] MEDS: morphine SULFATE 10 MG/ML, 1ML IVPush PRN ×3 (10:47→18:45)
[2020-07-31 13:38] VITALS: BP 118/74
[2020-07-31] MEDS ORDERED: FENTANYL PF 100 MCG/2ML ONE ×3 (13:57→17:10)
[2020-07-31] MEDS ORDERED: MIDAZOLAM 1 MG/ML, 2ML ONE ×2 (13:57→15:51)
[2020-07-31] MEDS ORDERED: BUPIVACAINE/PF 0.5% ONE (14:10)
[2020-07-31] MEDS ORDERED: LABETALOL 5MG/ML, 20ML IV PRN ×2 (14:30→16:30)
[2020-07-31] MEDS ORDERED: HYDROmorphone 1 MG/ML, 1ML INJ IVPush PRN ×2 (14:30→16:30)
[2020-07-31] MEDS ORDERED: ONDANSETRON 2MG/ML, 2ML IVPush PRN (14:30)
[2020-07-31] MEDS ORDERED: MEPERIDINE/PF 25MG/0.5ML IVPush PRN ×2 (14:30→16:30)
[2020-07-31] MEDS ORDERED: EPHEDRINE 50 MG/ML, 1ML IVPush PRN (14:30)
[2020-07-31] MEDS ORDERED: hydrALAzine 20 MG/ML, 1ML IV PRN ×2 (14:30→16:30)
[2020-07-31] MEDS ORDERED: PROMETHAZINE 25 MG/ML, 1ML IVPush PRN ×2 (14:30→16:30)
[2020-07-31] MEDS ORDERED: OXYcodone 5 MG/5 ML ORAL.SOL UDC PO PRN ×2 (14:30→16:30)
[2020-07-31] MEDS ORDERED: CHLORHEXIDINE 15 ML UDC ONE (14:52)
[2020-07-31] MEDS ORDERED: CHLORHEXIDINE 15 ML UDC MM ONE (15:00)
[2020-07-31] MEDS ORDERED: PHENYLEPHRINE 10 MG/ML ONE (15:55)
[2020-07-31] MEDS ORDERED: ACETAMINOPHEN 325 MG TABLET PO PRN (16:30)
[2020-07-31] MEDS ORDERED: FENTANYL PF 100 MCG/2ML IV PRN (16:30)
[2020-07-31] MEDS ORDERED: ALBUTEROL SULFATE 2.5 MG/3 ML NPPB PRN (16:30)
[2020-07-31] MEDS ORDERED: ONDANSETRON 2MG/ML, 2ML ONE (16:49)
[2020-07-31] MEDS ORDERED: DEXAMETHASONE 4 MG/ML, 1ML ONE (16:49)
[2020-07-31] MEDS ORDERED: PROPOFOL 10 MG/ML, 20ML ONE (16:49)
[2020-07-31] MEDS ORDERED: OXYcodone 5 MG/5 ML ORAL.SOL UDC ONE (17:10)
[2020-07-31] MEDS: FENTANYL PF 100 MCG/2ML IV PRN ×2 (17:15→17:20)
[2020-07-31 19:20] VITALS: BP 106/61
[2020-07-31] MEDS: DAPTOMYCIN 800 MG in SODIUM CHLORIDE 0.9% 100 ML IVPB SCH (23:14)
[2020-08-01] VITALS (8 sets, daily range): BP systolic 96–120; BP diastolic 60–91
[2020-08-01] MEDS: metroNIDAZOLE 500 MG TABLET PO SCH ×3 (02:09→18:32)
[2020-08-01] MEDS: CEFTAROLINE 600 MG in SODIUM CHLORIDE 0.9% 100 ML IV SCH (05:30)
[2020-08-01 05:39] LABS: CHLORIDE 105 mmol/L (98-107)
[2020-08-01 05:48] LABS: ANION GAP 6 mmol/L (5-15); CALCIUM 8.4 mg/dL (8.5-10.1); CREATININE 0.83 mg/dL (0.7-1.3)
[2020-08-01 06:09] LABS: MEAN CORPUSCULAR HEMOGLOBIN 29.3 pg (27.5-34.5); MEAN CORPUSCULAR HGB CONC 32.4 g/dL (33.2-36.2); MEAN CORPUSCULAR VOLUME 90.4 fL (81-97); PLATELET COUNT 528 x10^3/uL (130-400); RED BLOOD COUNT 2.15 x10^6/uL (4.38-5.82); RED CELL DISTRIBUTION WIDTH 15.5 % (9.4-14.8)
[2020-08-01 07:06] LABS: MD YES
[2020-08-01 07:07] LABS: LYMPH#(MANUAL) 1.01 x10^3/uL (1-3.4); LYMPHS% (MANUAL) 6 % (22-44); MONOS#(MANUAL) 0.17 x10^3/uL (0.3-2.7); MONOS% (MANUAL) 1 % (2-9); SEG#(MANUAL) 15.72 x10^3/uL (1.8-6.8); SEGS% (MANUAL) 93 % (42-75)
[2020-08-01 07:08] LABS: <PLATELET ESTIMATE> INCREASED; ANISOCYTOSIS 1+; LARGE PLATELETS 1+; POLYCHROMASIA 1+
[2020-08-01] MEDS: INSULIN LISPRO 100 UNITS/ML, PEN SQ-INSULIN SCH ×7 (07:56→21:05)
[2020-08-01] MEDS: POLYETHYLENE GLYCOL 17 GM PACKET PO SCH ×2 (09:00→20:58)
[2020-08-01] MEDS: SENNOSIDES 8.8 MG/5 ML ORAL SOL PO SCH ×2 (09:00→20:59)
[2020-08-01] MEDS: PANTOPRAZOLE 40MG TABLET PO SCH ×2 (11:14→21:06)
[2020-08-01] MEDS: NICOTINE 7 MG/24 HR PATCH.TD24 TD SCH (11:15)
[2020-08-01] MEDS: INSULIN GLARGINE 100 UNITS/ML, PEN SQ-INSULIN SCH ×2 (11:15→21:06)
[2020-08-01] MEDS: DAKIN'S SOLUTION 1/4 STRENGTH 1,000 ML IRRIG SOLN EXT SCH (11:16)
[2020-08-01] MEDS: OXYcodone IR 5MG TABLET PO PRN (14:51)
[2020-08-01] MEDS: DAPTOMYCIN 800 MG in SODIUM CHLORIDE 0.9% 100 ML IVPB SCH (23:04)
[2020-08-02] VITALS (10 sets, daily range): BP systolic 102–130; BP diastolic 63–70
[2020-08-02] MEDS: metroNIDAZOLE 500 MG TABLET PO SCH ×3 (02:08→18:20)
[2020-08-02 05:30] LABS: MEAN CORPUSCULAR HEMOGLOBIN 29.6 pg (27.5-34.5); MEAN CORPUSCULAR HGB CONC 32.5 g/dL (33.2-36.2); MEAN CORPUSCULAR VOLUME 90.9 fL (81-97); MEAN PLATELET VOLUME 7.7 fL (7.4-10.4); PLATELET COUNT 522 x10^3/uL (130-400); RED BLOOD COUNT 2.25 x10^6/uL (4.38-5.82); RED CELL DISTRIBUTION WIDTH 15.6 % (9.4-14.8)
[2020-08-02 06:35] LABS: BASOPHILS # (AUTO) 0.07 x10^3/uL (0-0.1); BASOPHILS % (AUTO) 0 % (0-1); EOSINOPHILS # (AUTO) 0.62 x10^3/uL (0-0.4); EOSINOPHILS % (AUTO) 4 % (1-7); LYMPHOCYTES # (AUTO) 2.35 x10^3/uL (1-3.4); LYMPHOCYTES % (AUTO) 14 % (22-44); MD SCAN; MONOCYTES % (AUTO) 6 % (2-9); NEUTROPHILS # (AUTO) 12.62 x10^3/uL (1.8-6.8); NEUTROPHILS % (AUTO) 76 % (42-75)
[2020-08-02] MEDS: INSULIN LISPRO 100 UNITS/ML, PEN SQ-INSULIN SCH ×7 (07:00→21:02)
[2020-08-02] MEDS ORDERED: FENTANYL PF 250 MCG/5ML ONE (07:56)
[2020-08-02] MEDS ORDERED: MIDAZOLAM 1 MG/ML, 2ML ONE (07:56)
[2020-08-02] MEDS ORDERED: PROMETHAZINE 12.5 MG SUPP PR PRN (08:30)
[2020-08-02] MEDS ORDERED: FENTANYL PF 100 MCG/2ML IV PRN (08:30)
[2020-08-02] MEDS ORDERED: ALBUTEROL SULFATE 2.5 MG/3 ML NPPB PRN (08:30)
[2020-08-02] MEDS ORDERED: hydrALAzine 20 MG/ML, 1ML IV PRN (08:30)
[2020-08-02] MEDS ORDERED: ONDANSETRON 2MG/ML, 2ML IVPush PRN (08:30)
[2020-08-02] MEDS ORDERED: MIDAZOLAM 1 MG/ML, 2ML IV PRN (08:30)
[2020-08-02] MEDS ORDERED: EPHEDRINE 50 MG/ML, 1ML IVPush PRN (08:30)
[2020-08-02] MEDS ORDERED: HYDROmorphone 1 MG/ML, 1ML INJ IVPush PRN (08:30)
[2020-08-02] MEDS ORDERED: LABETALOL 5MG/ML, 20ML IV PRN (08:30)
[2020-08-02] MEDS ORDERED: MEPERIDINE/PF 25MG/0.5ML IVPush PRN (08:30)
[2020-08-02] MEDS ORDERED: OXYcodone 5 MG/5 ML ORAL.SOL UDC PO PRN (08:30)
[2020-08-02] MEDS ORDERED: DIAZEPAM 5 MG/ML, 2ML IVPush PRN (08:30)
[2020-08-02] MEDS ORDERED: PROMETHAZINE 25 MG/ML, 1ML IVPush PRN (08:30)
[2020-08-02] MEDS ORDERED: DIPHENHYDRAMINE 50 MG/ML, 1ML IVPush PRN ×2 (08:30)
[2020-08-02] MEDS: PANTOPRAZOLE 40MG TABLET PO SCH ×2 (08:40→21:02)
[2020-08-02] MEDS: POLYETHYLENE GLYCOL 17 GM PACKET PO SCH ×2 (08:40→21:02)
[2020-08-02] MEDS: SENNOSIDES 8.8 MG/5 ML ORAL SOL PO SCH ×2 (09:00→21:02)
[2020-08-02] MEDS ORDERED: FENTANYL PF 100 MCG/2ML ONE (09:17)
[2020-08-02] MEDS ORDERED: OXYcodone 5 MG/5 ML ORAL.SOL UDC ONE (09:17)
[2020-08-02] MEDS: FENTANYL PF 100 MCG/2ML IV PRN (09:24)
[2020-08-02] MEDS: morphine SULFATE 10 MG/ML, 1ML IVPush PRN (10:20)
[2020-08-02] MEDS: DAKIN'S SOLUTION 1/4 STRENGTH 1,000 ML IRRIG SOLN EXT SCH (10:32)
[2020-08-02] MEDS: NICOTINE 7 MG/24 HR PATCH.TD24 TD SCH (10:35)
[2020-08-02] MEDS: INSULIN GLARGINE 100 UNITS/ML, PEN SQ-INSULIN SCH ×2 (10:40→21:02)
[2020-08-02] MEDS: OXYcodone IR 5MG TABLET PO PRN (20:21)
[2020-08-02] MEDS: DAPTOMYCIN 800 MG in SODIUM CHLORIDE 0.9% 100 ML IVPB SCH (23:10)
[2020-08-03 01:28] VITALS: BP 119/69
[2020-08-03] MEDS: metroNIDAZOLE 500 MG TABLET PO SCH ×3 (02:05→17:15)
[2020-08-03 04:04] LABS: MEAN CORPUSCULAR HEMOGLOBIN 29.9 pg (27.5-34.5); MEAN CORPUSCULAR HGB CONC 32.4 g/dL (33.2-36.2); MEAN CORPUSCULAR VOLUME 92.2 fL (81-97); MEAN PLATELET VOLUME 7.5 fL (7.4-10.4); PLATELET COUNT 511 x10^3/uL (130-400); RED BLOOD COUNT 2.53 x10^6/uL (4.38-5.82)
[2020-08-03 04:41] LABS: MD YES
[2020-08-03 04:43] LABS: BAND#(MANUAL) 0.15 x10^3/uL; BANDS%(MANUAL) 1 % (0-7); EOS#(MANUAL) 0.15 x10^3/uL (0.0-0.4); EOS% (MANUAL) 1 % (1-7); LYMPH#(MANUAL) 2.28 x10^3/uL (1-3.4); LYMPHS% (MANUAL) 15 % (22-44); METAMYELOCYTES# (MANUAL) 0.15 x10^3/uL (0-0); METAMYELOCYTES% (MANUAL) 1 % (0-1); MONOS#(MANUAL) 0.76 x10^3/uL (0.3-2.7); MONOS% (MANUAL) 5 % (2-9); MYELOCYTES# (MANUAL) 0.15 x10^3/uL (0-0); MYELOCYTES% (MANUAL) 1 % (0-0); SEG#(MANUAL) 11.55 x10^3/uL (1.8-6.8); SEGS% (MANUAL) 76 % (42-75)
[2020-08-03 04:44] LABS: ANISOCYTOSIS 1+; POLYCHROMASIA 1+
[2020-08-03 04:45] LABS: <PLATELET ESTIMATE> INCREASED; LARGE PLATELETS 1+
[2020-08-03] MEDS: INSULIN LISPRO 100 UNITS/ML, PEN SQ-INSULIN SCH ×7 (07:00→21:16)
[2020-08-03 07:24] VITALS: BP 112/64
[2020-08-03] MEDS: DAKIN'S SOLUTION 1/4 STRENGTH 1,000 ML IRRIG SOLN EXT SCH (08:40)
[2020-08-03] MEDS: PANTOPRAZOLE 40MG TABLET PO SCH ×2 (08:57→21:16)
[2020-08-03] MEDS: POLYETHYLENE GLYCOL 17 GM PACKET PO SCH ×2 (08:57→21:00)
[2020-08-03] MEDS: NICOTINE 7 MG/24 HR PATCH.TD24 TD SCH (08:57)
[2020-08-03] MEDS: SENNOSIDES 8.8 MG/5 ML ORAL SOL PO SCH ×2 (09:03→21:00)
[2020-08-03] MEDS: INSULIN GLARGINE 100 UNITS/ML, PEN SQ-INSULIN SCH ×2 (09:04→21:15)
[2020-08-03 14:05] VITALS: BP 114/76
[2020-08-03 20:03] VITALS: BP 131/76
[2020-08-03] MEDS: DAPTOMYCIN 800 MG in SODIUM CHLORIDE 0.9% 100 ML IVPB SCH (23:19)
[2020-08-03] MEDS: OXYcodone IR 5MG TABLET PO PRN (23:20)
[2020-08-04 01:48] VITALS: BP 152/79
[2020-08-04] MEDS: metroNIDAZOLE 500 MG TABLET PO SCH ×3 (02:32→17:00)
[2020-08-04 06:07] LABS: HCT (SEDRATE) 25.4 % (39.2-51.8)
[2020-08-04 06:08] LABS: BASOPHILS # (AUTO) 0.06 x10^3/uL (0-0.1); BASOPHILS % (AUTO) 0 % (0-1); EOSINOPHILS # (AUTO) 0.58 x10^3/uL (0-0.4); EOSINOPHILS % (AUTO) 4 % (1-7); LYMPHOCYTES % (AUTO) 16 % (22-44); MD NO; MEAN CORPUSCULAR HEMOGLOBIN 29.8 pg (27.5-34.5); MEAN CORPUSCULAR HGB CONC 32.4 g/dL (33.2-36.2); MEAN CORPUSCULAR VOLUME 91.9 fL (81-97); MEAN PLATELET VOLUME 7.5 fL (7.4-10.4); MONOCYTES # (AUTO) 0.83 x10^3/uL (0.2-0.8); MONOCYTES % (AUTO) 6 % (2-9); NEUTROPHILS % (AUTO) 73 % (42-75); PLATELET COUNT 590 x10^3/uL (130-400); RED BLOOD COUNT 2.79 x10^6/uL (4.38-5.82); RED CELL DISTRIBUTION WIDTH 15.1 % (9.4-14.8)
[2020-08-04 06:21] LABS: ALBUMIN 1.4 g/dL (3.4-5.0); ANION GAP 5 mmol/L (5-15); CALCIUM 8.9 mg/dL (8.5-10.1); CHLORIDE 105 mmol/L (98-107)
[2020-08-04 06:31] LABS: ALANINE AMINOTRANSFERASE 20 U/L (12-78); ALKALINE PHOSPHATASE 204 U/L (45-117); BILIRUBIN,TOTAL 0.3 mg/dL (0.2-1.0); CREATINE KINASE, TOTAL 27 U/L (39-308); CREATININE 0.64 mg/dL (0.7-1.3); TOTAL PROTEIN 6.3 g/dL (6.4-8.2)
[2020-08-04] MEDS: INSULIN LISPRO 100 UNITS/ML, PEN SQ-INSULIN SCH ×5 (07:00→20:54)
[2020-08-04 07:32] VITALS: BP 133/76
[2020-08-04] MEDS: DAKIN'S SOLUTION 1/4 STRENGTH 1,000 ML IRRIG SOLN EXT SCH (09:00)
[2020-08-04] MEDS: POLYETHYLENE GLYCOL 17 GM PACKET PO SCH ×2 (10:03→21:00)
[2020-08-04] MEDS: SENNOSIDES 8.8 MG/5 ML ORAL SOL PO SCH ×2 (10:03→21:00)
[2020-08-04] MEDS: INSULIN GLARGINE 100 UNITS/ML, PEN SQ-INSULIN SCH ×2 (10:04→20:53)
[2020-08-04] MEDS: PANTOPRAZOLE 40MG TABLET PO SCH ×2 (10:04→20:53)
[2020-08-04] MEDS: NICOTINE 7 MG/24 HR PATCH.TD24 TD SCH (10:13)
[2020-08-04 14:40] VITALS: BP 134/79
[2020-08-04 18:54] VITALS: BP 131/74
[2020-08-04] MEDS: OXYcodone IR 5MG TABLET PO PRN (20:53)
[2020-08-04] MEDS: DAPTOMYCIN 800 MG in SODIUM CHLORIDE 0.9% 100 ML IVPB SCH (23:11)
[2020-08-05 01:17] VITALS: BP 124/69
[2020-08-05] MEDS: metroNIDAZOLE 500 MG TABLET PO SCH ×2 (03:12→10:44)
[2020-08-05] MEDS: INSULIN LISPRO 100 UNITS/ML, PEN SQ-INSULIN SCH ×2 (07:00→10:50)
[2020-08-05 07:55] VITALS: BP 119/75
[2020-08-05] MEDS: DAKIN'S SOLUTION 1/4 STRENGTH 1,000 ML IRRIG SOLN EXT SCH (08:25)
[2020-08-05] MEDS: SENNOSIDES 8.8 MG/5 ML ORAL SOL PO SCH (09:00)
[2020-08-05] MEDS: POLYETHYLENE GLYCOL 17 GM PACKET PO SCH (09:00)
[2020-08-05] MEDS: INSULIN GLARGINE 100 UNITS/ML, PEN SQ-INSULIN SCH (10:22)
[2020-08-05] MEDS: PANTOPRAZOLE 40MG TABLET PO SCH (10:44)
[2020-08-05] MEDS: NICOTINE 7 MG/24 HR PATCH.TD24 TD SCH (10:44)
[2020-08-05] MEDS: morphine SULFATE 10 MG/ML, 1ML IVPush PRN (11:33)
[2020-08-05] MEDS: OXYcodone IR 5MG TABLET PO PRN (13:19)
[2020-08-05] MEDS ORDERED: INSU100I11 SQ-INSULIN (14:09)
[2020-08-05] MEDS ORDERED: INSU100I13 SQ-INSULIN (14:09)
[2020-08-05] MEDS ORDERED: PANT40TA6 PO (14:09)
[2020-08-05] MEDS ORDERED: OXYC5TAB3 PO (14:09)
[2020-08-05] MEDS ORDERED: NICO-485 TD (14:09)
[2020-08-05] MEDS ORDERED: DAPT500V3 IV (14:09)
[2020-08-05] MEDS ORDERED: METR500T PO (14:09)
== END 2020-08-05 16:10 | DRG 853 ==
LOC: ED 02:46 → EDIP 04:58 → 3N 06:01
PROVIDERS: ADMIT Internal Medicine; ATTEND Hospitalist
PROC: 0Y990ZZ Drainage of Right Lower Extremity, Open Approach (ICD-10-PCS; 2020-07-22)
PROC: 0JBN0ZX Excision of Right Lower Leg Subcutaneous Tissue and Fascia, Open Approach, Diagnostic (ICD-10-PCS; 2020-07-22)
PROC: 3E0G8GC Introduction of Other Therapeutic Substance into Upper GI, Via Natural or Artificial Opening Endoscopic (ICD-10-PCS; 2020-07-24)
PROC: 30233P1 Transfusion of Nonautologous Frozen Red Cells into Peripheral Vein, Percutaneous Approach (ICD-10-PCS; principal; 2020-07-24 12:00)
PROC: 0Y990ZZ Drainage of Right Lower Extremity, Open Approach (ICD-10-PCS; 2020-07-31)
PROC: 0JBN0ZZ Excision of Right Lower Leg Subcutaneous Tissue and Fascia, Open Approach (ICD-10-PCS; 2020-08-02)
PROC: 2W1RX6Z Compression of Left Lower Leg using Pressure Dressing (ICD-10-PCS; 2020-08-02)
DX: A41.02 Sepsis due to Methicillin resistant Staphylococcus aureus (principal); J18.9 Pneumonia, unspecified organism; K26.0 Acute duodenal ulcer with hemorrhage; N17.0 Acute kidney failure with tubular necrosis; D62 Acute posthemorrhagic anemia; E11.52 Type 2 diabetes mellitus with diabetic peripheral angiopathy with gangrene; E87.1 Hypo-osmolality and hyponatremia; L02.415 Cutaneous abscess of right lower limb; L03.115 Cellulitis of right lower limb; E11.649 Type 2 diabetes mellitus with hypoglycemia without coma; E11.65 Type 2 diabetes mellitus with hyperglycemia; E83.39 Other disorders of phosphorus metabolism; E87.6 Hypokalemia; F12.90 Cannabis use, unspecified, uncomplicated; F17.210 Nicotine dependence, cigarettes, uncomplicated; I10 Essential (primary) hypertension; Z56.0 Unemployment, unspecified; I77.6 Arteritis, unspecified; I87.8 Other specified disorders of veins; K59.00 Constipation, unspecified; L03.031 Cellulitis of right toe; M16.0 Bilateral primary osteoarthritis of hip; R65.20 Severe sepsis without septic shock; S80.829A Blister (nonthermal), unspecified lower leg, initial encounter
CPT/HCPCS: 36415; 84145; 87106; 87338; 96374; 96375; 99291; A9575; S0020; 36430; 36573; 71045; 80048; 80053; 80061; 80069; 82272; 82550; 82962; 83036; 83605; 83735; 84100; 84439; 84443; 85014; 85018; 85025; 85651; 86140; 86850; 86900; 86923; 87040; 87070; 87075; 87077; 87102; 87147; 87186; 87205; 87635; 88305; 88312; 88313; 93005; 93306; 93308; 93325; 93922; G0378; J0690; J0712; J0878; J1100; J1644; J1650; J2250; J2405; J2543; J2704; J3010; J3370; Q9967; C1751; C9113; J0330; J0360; J1815; J2270; J2370; J7030; J7040; J7050; P9016

== ENCOUNTER 2020-09-15 12:42 | Outpatient (CLI) | payer MEDICAID ==
[~2020-09-15 12:42] MED LIST: DAPT500V3 IV; IBUP-1223 PO; INSU100I11 SQ-INSULIN; INSU100I13 SQ-INSULIN; METR500T PO; NICO-485 TD; OXYC5TAB3 PO; PANT40TA6 PO
== END 2020-09-15 23:59 | disposition home or self-care (01) ==
LOC: WOUND 12:42
PROVIDERS: ATTEND Internal Medicine
DX: E11.622 Type 2 diabetes mellitus with other skin ulcer (principal); L97.815 Non-pressure chronic ulcer of other part of right lower leg with muscle involvement without evidence of necrosis; E11.621 Type 2 diabetes mellitus with foot ulcer; L97.521 Non-pressure chronic ulcer of other part of left foot limited to breakdown of skin; M72.6 Necrotizing fasciitis; S81.801A Unspecified open wound, right lower leg, initial encounter; B95.62 Methicillin resistant Staphylococcus aureus infection as the cause of diseases classified elsewhere; E11.65 Type 2 diabetes mellitus with hyperglycemia; E11.52 Type 2 diabetes mellitus with diabetic peripheral angiopathy with gangrene; I96 Gangrene, not elsewhere classified; M16.0 Bilateral primary osteoarthritis of hip; I10 Essential (primary) hypertension; E11.610 Type 2 diabetes mellitus with diabetic neuropathic arthropathy; F12.90 Cannabis use, unspecified, uncomplicated; Z79.4 Long term (current) use of insulin; Z87.891 Personal history of nicotine dependence; X58.XXXA Exposure to other specified factors, initial encounter; Y93.89 Activity, other specified; Y92.89 Other specified places as the place of occurrence of the external cause; Y99.8 Other external cause status
CPT/HCPCS: 11043; 11046; 71046; 97606; 99215

== ENCOUNTER → 2020-09-17 | Outpatient (CLI) | payer MEDICAID | END | disposition home or self-care (01) | LOC: WOUND 07:16 | PROVIDERS: ATTEND Internal Medicine | DX: E11.621 Type 2 diabetes mellitus with foot ulcer (principal); L97.521 Non-pressure chronic ulcer of other part of left foot limited to breakdown of skin; E11.622 Type 2 diabetes mellitus with other skin ulcer; L97.811 Non-pressure chronic ulcer of other part of right lower leg limited to breakdown of skin; M72.6 Necrotizing fasciitis; B95.62 Methicillin resistant Staphylococcus aureus infection as the cause of diseases classified elsewhere; E11.65 Type 2 diabetes mellitus with hyperglycemia; M16.0 Bilateral primary osteoarthritis of hip; F12.90 Cannabis use, unspecified, uncomplicated; I10 Essential (primary) hypertension; E11.52 Type 2 diabetes mellitus with diabetic peripheral angiopathy with gangrene; I96 Gangrene, not elsewhere classified; Z87.891 Personal history of nicotine dependence | CPT/HCPCS: 97606 ==

== ENCOUNTER → 2020-09-17 | Outpatient (CLI) | payer MEDICAID | END | disposition home or self-care (01) | LOC: CFH 07:21 | PROVIDERS: ATTEND Internal Medicine | DX: Z02.9 Encounter for administrative examinations, unspecified (principal) ==

== ENCOUNTER → 2020-09-19 | Outpatient (CLI) | payer MEDICAID | END | disposition home or self-care (01) | LOC: WOUND 10:37 | PROVIDERS: ATTEND Internal Medicine | DX: E11.622 Type 2 diabetes mellitus with other skin ulcer (principal); L97.815 Non-pressure chronic ulcer of other part of right lower leg with muscle involvement without evidence of necrosis; E11.621 Type 2 diabetes mellitus with foot ulcer; L97.521 Non-pressure chronic ulcer of other part of left foot limited to breakdown of skin; M72.6 Necrotizing fasciitis; B95.62 Methicillin resistant Staphylococcus aureus infection as the cause of diseases classified elsewhere; E11.65 Type 2 diabetes mellitus with hyperglycemia; M16.0 Bilateral primary osteoarthritis of hip; E11.52 Type 2 diabetes mellitus with diabetic peripheral angiopathy with gangrene; I96 Gangrene, not elsewhere classified; I10 Essential (primary) hypertension; F12.90 Cannabis use, unspecified, uncomplicated; Z87.891 Personal history of nicotine dependence; Z79.4 Long term (current) use of insulin | CPT/HCPCS: 97606 ==

== ENCOUNTER → 2020-09-22 | Outpatient (CLI) | payer MEDICAID | END | disposition home or self-care (01) | LOC: WOUND 07:42 | PROVIDERS: ATTEND Internal Medicine | DX: E11.622 Type 2 diabetes mellitus with other skin ulcer (principal); L97.815 Non-pressure chronic ulcer of other part of right lower leg with muscle involvement without evidence of necrosis; E11.621 Type 2 diabetes mellitus with foot ulcer; L97.521 Non-pressure chronic ulcer of other part of left foot limited to breakdown of skin; S81.801D Unspecified open wound, right lower leg, subsequent encounter; L03.115 Cellulitis of right lower limb; M72.6 Necrotizing fasciitis; B95.62 Methicillin resistant Staphylococcus aureus infection as the cause of diseases classified elsewhere; E11.65 Type 2 diabetes mellitus with hyperglycemia; M16.0 Bilateral primary osteoarthritis of hip; E11.52 Type 2 diabetes mellitus with diabetic peripheral angiopathy with gangrene; I96 Gangrene, not elsewhere classified; I10 Essential (primary) hypertension; Z87.891 Personal history of nicotine dependence; Z79.4 Long term (current) use of insulin; X58.XXXD Exposure to other specified factors, subsequent encounter | CPT/HCPCS: 97597; 97598 ==

== ENCOUNTER → 2020-09-24 | Outpatient (CLI) | payer MEDICAID | END | disposition home or self-care (01) | LOC: WOUND 09:08 | PROVIDERS: ATTEND Internal Medicine | DX: E11.622 Type 2 diabetes mellitus with other skin ulcer (principal); L97.815 Non-pressure chronic ulcer of other part of right lower leg with muscle involvement without evidence of necrosis; E11.621 Type 2 diabetes mellitus with foot ulcer; L97.521 Non-pressure chronic ulcer of other part of left foot limited to breakdown of skin; S81.801D Unspecified open wound, right lower leg, subsequent encounter; L03.115 Cellulitis of right lower limb; M72.6 Necrotizing fasciitis; B95.62 Methicillin resistant Staphylococcus aureus infection as the cause of diseases classified elsewhere; E11.65 Type 2 diabetes mellitus with hyperglycemia; M16.0 Bilateral primary osteoarthritis of hip; E11.52 Type 2 diabetes mellitus with diabetic peripheral angiopathy with gangrene; I96 Gangrene, not elsewhere classified; I10 Essential (primary) hypertension; F12.90 Cannabis use, unspecified, uncomplicated; Z87.891 Personal history of nicotine dependence; Z79.4 Long term (current) use of insulin; X58.XXXD Exposure to other specified factors, subsequent encounter | CPT/HCPCS: 97606 ==

== ENCOUNTER → 2020-09-26 | Outpatient (CLI) | payer MEDICAID | END | disposition home or self-care (01) | LOC: WOUND 09:11 | PROVIDERS: ATTEND Family Medicine | DX: E11.622 Type 2 diabetes mellitus with other skin ulcer (principal); L97.815 Non-pressure chronic ulcer of other part of right lower leg with muscle involvement without evidence of necrosis; E11.621 Type 2 diabetes mellitus with foot ulcer; L97.521 Non-pressure chronic ulcer of other part of left foot limited to breakdown of skin; S81.801D Unspecified open wound, right lower leg, subsequent encounter; M72.6 Necrotizing fasciitis; B95.62 Methicillin resistant Staphylococcus aureus infection as the cause of diseases classified elsewhere; E11.65 Type 2 diabetes mellitus with hyperglycemia; E11.52 Type 2 diabetes mellitus with diabetic peripheral angiopathy with gangrene; I96 Gangrene, not elsewhere classified; I10 Essential (primary) hypertension; M16.0 Bilateral primary osteoarthritis of hip; F12.90 Cannabis use, unspecified, uncomplicated; Z87.891 Personal history of nicotine dependence; Z79.4 Long term (current) use of insulin; X58.XXXD Exposure to other specified factors, subsequent encounter | CPT/HCPCS: 97606 ==

== ENCOUNTER 2020-09-29 09:20 | Outpatient (CLI) | payer MEDICAID | END 2020-09-29 23:59 | disposition home or self-care (01) | LOC: WOUND 09:20 | PROVIDERS: ATTEND Internal Medicine | DX: E11.622 Type 2 diabetes mellitus with other skin ulcer (principal); L97.815 Non-pressure chronic ulcer of other part of right lower leg with muscle involvement without evidence of necrosis; E11.621 Type 2 diabetes mellitus with foot ulcer; L97.521 Non-pressure chronic ulcer of other part of left foot limited to breakdown of skin; E11.610 Type 2 diabetes mellitus with diabetic neuropathic arthropathy; S81.801D Unspecified open wound, right lower leg, subsequent encounter; M72.6 Necrotizing fasciitis; B95.62 Methicillin resistant Staphylococcus aureus infection as the cause of diseases classified elsewhere; E11.52 Type 2 diabetes mellitus with diabetic peripheral angiopathy with gangrene; I96 Gangrene, not elsewhere classified; E11.65 Type 2 diabetes mellitus with hyperglycemia; M16.0 Bilateral primary osteoarthritis of hip; I10 Essential (primary) hypertension; Z87.891 Personal history of nicotine dependence; Z79.4 Long term (current) use of insulin; X58.XXXD Exposure to other specified factors, subsequent encounter | CPT/HCPCS: 97597; 97598 ==

== ENCOUNTER → 2020-10-01 | Outpatient (CLI) | payer MEDICAID | END | disposition home or self-care (01) | LOC: WOUND 09:12 | PROVIDERS: ATTEND Internal Medicine | DX: E11.622 Type 2 diabetes mellitus with other skin ulcer (principal); L97.811 Non-pressure chronic ulcer of other part of right lower leg limited to breakdown of skin; E11.621 Type 2 diabetes mellitus with foot ulcer; L97.521 Non-pressure chronic ulcer of other part of left foot limited to breakdown of skin; S81.801D Unspecified open wound, right lower leg, subsequent encounter; M72.6 Necrotizing fasciitis; B95.62 Methicillin resistant Staphylococcus aureus infection as the cause of diseases classified elsewhere; E11.52 Type 2 diabetes mellitus with diabetic peripheral angiopathy with gangrene; I96 Gangrene, not elsewhere classified; E11.65 Type 2 diabetes mellitus with hyperglycemia; M16.0 Bilateral primary osteoarthritis of hip; I10 Essential (primary) hypertension; Z87.891 Personal history of nicotine dependence; Z79.4 Long term (current) use of insulin; X58.XXXD Exposure to other specified factors, subsequent encounter | CPT/HCPCS: 97606 ==

== ENCOUNTER → 2020-10-03 | Outpatient (CLI) | payer MEDICAID | END | disposition home or self-care (01) | LOC: WOUND 09:24 | PROVIDERS: ATTEND Internal Medicine | DX: E11.622 Type 2 diabetes mellitus with other skin ulcer (principal); L97.811 Non-pressure chronic ulcer of other part of right lower leg limited to breakdown of skin; S81.801D Unspecified open wound, right lower leg, subsequent encounter; E11.52 Type 2 diabetes mellitus with diabetic peripheral angiopathy with gangrene; I96 Gangrene, not elsewhere classified; M72.6 Necrotizing fasciitis; B95.62 Methicillin resistant Staphylococcus aureus infection as the cause of diseases classified elsewhere; E11.65 Type 2 diabetes mellitus with hyperglycemia; E11.610 Type 2 diabetes mellitus with diabetic neuropathic arthropathy; M16.0 Bilateral primary osteoarthritis of hip; I10 Essential (primary) hypertension; Z87.891 Personal history of nicotine dependence; X58.XXXD Exposure to other specified factors, subsequent encounter | CPT/HCPCS: 97606 ==

== ENCOUNTER → 2020-10-06 | Outpatient (CLI) | payer MEDICAID | END | disposition home or self-care (01) | LOC: WOUND 09:16 | PROVIDERS: ATTEND Internal Medicine | DX: E11.622 Type 2 diabetes mellitus with other skin ulcer (principal); L97.815 Non-pressure chronic ulcer of other part of right lower leg with muscle involvement without evidence of necrosis; E11.52 Type 2 diabetes mellitus with diabetic peripheral angiopathy with gangrene; I96 Gangrene, not elsewhere classified; M72.6 Necrotizing fasciitis; B95.62 Methicillin resistant Staphylococcus aureus infection as the cause of diseases classified elsewhere; E11.610 Type 2 diabetes mellitus with diabetic neuropathic arthropathy; M16.0 Bilateral primary osteoarthritis of hip; I10 Essential (primary) hypertension; F12.90 Cannabis use, unspecified, uncomplicated; Z87.891 Personal history of nicotine dependence; Z79.4 Long term (current) use of insulin | CPT/HCPCS: 97597; 97598 ==

== ENCOUNTER → 2020-10-08 | Outpatient (CLI) | payer MEDICAID | END | disposition home or self-care (01) | LOC: WOUND 09:15 | PROVIDERS: ATTEND Internal Medicine | DX: E11.622 Type 2 diabetes mellitus with other skin ulcer (principal); L97.815 Non-pressure chronic ulcer of other part of right lower leg with muscle involvement without evidence of necrosis; E11.52 Type 2 diabetes mellitus with diabetic peripheral angiopathy with gangrene; I96 Gangrene, not elsewhere classified; M72.6 Necrotizing fasciitis; B95.62 Methicillin resistant Staphylococcus aureus infection as the cause of diseases classified elsewhere; E11.610 Type 2 diabetes mellitus with diabetic neuropathic arthropathy; M16.0 Bilateral primary osteoarthritis of hip; I10 Essential (primary) hypertension; F12.90 Cannabis use, unspecified, uncomplicated; Z87.891 Personal history of nicotine dependence; Z79.4 Long term (current) use of insulin | CPT/HCPCS: 99212 ==

== ENCOUNTER → 2020-10-10 | Outpatient (CLI) | payer MEDICAID | END | disposition home or self-care (01) | LOC: WOUND 09:08 | PROVIDERS: ATTEND Internal Medicine Cardiovascular Disease | DX: E11.622 Type 2 diabetes mellitus with other skin ulcer (principal); L97.815 Non-pressure chronic ulcer of other part of right lower leg with muscle involvement without evidence of necrosis; E11.52 Type 2 diabetes mellitus with diabetic peripheral angiopathy with gangrene; I96 Gangrene, not elsewhere classified; M72.6 Necrotizing fasciitis; B95.62 Methicillin resistant Staphylococcus aureus infection as the cause of diseases classified elsewhere; E11.610 Type 2 diabetes mellitus with diabetic neuropathic arthropathy; M16.0 Bilateral primary osteoarthritis of hip; I10 Essential (primary) hypertension; F12.90 Cannabis use, unspecified, uncomplicated; Z87.891 Personal history of nicotine dependence; Z79.4 Long term (current) use of insulin | CPT/HCPCS: 99215 ==

== ENCOUNTER → 2020-10-13 | Outpatient (CLI) | payer MEDICAID | END | disposition home or self-care (01) | LOC: WOUND 09:15 | PROVIDERS: ATTEND Internal Medicine Cardiovascular Disease | DX: E11.622 Type 2 diabetes mellitus with other skin ulcer (principal); L97.815 Non-pressure chronic ulcer of other part of right lower leg with muscle involvement without evidence of necrosis; E11.52 Type 2 diabetes mellitus with diabetic peripheral angiopathy with gangrene; I96 Gangrene, not elsewhere classified; M72.6 Necrotizing fasciitis; B95.62 Methicillin resistant Staphylococcus aureus infection as the cause of diseases classified elsewhere; E11.610 Type 2 diabetes mellitus with diabetic neuropathic arthropathy; M16.0 Bilateral primary osteoarthritis of hip; I10 Essential (primary) hypertension; F12.90 Cannabis use, unspecified, uncomplicated; Z87.891 Personal history of nicotine dependence; Z79.4 Long term (current) use of insulin | CPT/HCPCS: 99213 ==

== ENCOUNTER → 2020-10-15 | Outpatient (CLI) | payer MEDICAID | END | disposition home or self-care (01) | LOC: WOUND 09:12 | PROVIDERS: ATTEND Internal Medicine | DX: E11.622 Type 2 diabetes mellitus with other skin ulcer (principal); L97.815 Non-pressure chronic ulcer of other part of right lower leg with muscle involvement without evidence of necrosis; E11.52 Type 2 diabetes mellitus with diabetic peripheral angiopathy with gangrene; I96 Gangrene, not elsewhere classified; M72.6 Necrotizing fasciitis; B95.62 Methicillin resistant Staphylococcus aureus infection as the cause of diseases classified elsewhere; E11.610 Type 2 diabetes mellitus with diabetic neuropathic arthropathy; M16.0 Bilateral primary osteoarthritis of hip; I10 Essential (primary) hypertension; F12.90 Cannabis use, unspecified, uncomplicated; Z87.891 Personal history of nicotine dependence; Z79.4 Long term (current) use of insulin | CPT/HCPCS: 99214 ==

== ENCOUNTER → 2020-10-17 | Outpatient (CLI) | payer MEDICAID | END | disposition home or self-care (01) | LOC: WOUND 09:13 | PROVIDERS: ATTEND Internal Medicine | DX: E11.622 Type 2 diabetes mellitus with other skin ulcer (principal); L97.811 Non-pressure chronic ulcer of other part of right lower leg limited to breakdown of skin; S81.801D Unspecified open wound, right lower leg, subsequent encounter; M72.6 Necrotizing fasciitis; B95.62 Methicillin resistant Staphylococcus aureus infection as the cause of diseases classified elsewhere; E11.52 Type 2 diabetes mellitus with diabetic peripheral angiopathy with gangrene; I96 Gangrene, not elsewhere classified; E11.65 Type 2 diabetes mellitus with hyperglycemia; M16.0 Bilateral primary osteoarthritis of hip; I10 Essential (primary) hypertension; E11.610 Type 2 diabetes mellitus with diabetic neuropathic arthropathy; F12.90 Cannabis use, unspecified, uncomplicated; Z79.4 Long term (current) use of insulin; Z87.891 Personal history of nicotine dependence; X58.XXXD Exposure to other specified factors, subsequent encounter | CPT/HCPCS: 99213 ==

== ENCOUNTER → 2020-10-20 | Outpatient (CLI) | payer MEDICAID | END | disposition home or self-care (01) | LOC: WOUND 09:19 | PROVIDERS: ATTEND Internal Medicine | DX: E11.622 Type 2 diabetes mellitus with other skin ulcer (principal); L97.815 Non-pressure chronic ulcer of other part of right lower leg with muscle involvement without evidence of necrosis; S81.801D Unspecified open wound, right lower leg, subsequent encounter; M72.6 Necrotizing fasciitis; B95.62 Methicillin resistant Staphylococcus aureus infection as the cause of diseases classified elsewhere; E11.52 Type 2 diabetes mellitus with diabetic peripheral angiopathy with gangrene; I96 Gangrene, not elsewhere classified; E11.65 Type 2 diabetes mellitus with hyperglycemia; M16.0 Bilateral primary osteoarthritis of hip; I10 Essential (primary) hypertension; E11.610 Type 2 diabetes mellitus with diabetic neuropathic arthropathy; F12.90 Cannabis use, unspecified, uncomplicated; Z79.4 Long term (current) use of insulin; Z87.891 Personal history of nicotine dependence; X58.XXXD Exposure to other specified factors, subsequent encounter | CPT/HCPCS: 97597; 97598 ==

== ENCOUNTER 2020-10-22 09:13 | Outpatient (CLI) | payer MEDICAID | END 2020-10-22 23:59 | disposition home or self-care (01) | LOC: WOUND 09:13 | PROVIDERS: ATTEND Internal Medicine | DX: E11.622 Type 2 diabetes mellitus with other skin ulcer (principal); L97.815 Non-pressure chronic ulcer of other part of right lower leg with muscle involvement without evidence of necrosis; M72.6 Necrotizing fasciitis; B95.62 Methicillin resistant Staphylococcus aureus infection as the cause of diseases classified elsewhere; S81.801D Unspecified open wound, right lower leg, subsequent encounter; E11.52 Type 2 diabetes mellitus with diabetic peripheral angiopathy with gangrene; I96 Gangrene, not elsewhere classified; E11.65 Type 2 diabetes mellitus with hyperglycemia; M16.0 Bilateral primary osteoarthritis of hip; I10 Essential (primary) hypertension; Z87.891 Personal history of nicotine dependence; Z79.4 Long term (current) use of insulin; X58.XXXD Exposure to other specified factors, subsequent encounter | CPT/HCPCS: 99214 ==

== ENCOUNTER → 2020-10-27 | Outpatient (CLI) | payer MEDICAID | END | disposition home or self-care (01) | LOC: WOUND 09:27 | PROVIDERS: ATTEND Internal Medicine | DX: E11.622 Type 2 diabetes mellitus with other skin ulcer (principal); L97.815 Non-pressure chronic ulcer of other part of right lower leg with muscle involvement without evidence of necrosis; S81.801D Unspecified open wound, right lower leg, subsequent encounter; M72.6 Necrotizing fasciitis; B95.62 Methicillin resistant Staphylococcus aureus infection as the cause of diseases classified elsewhere; E11.52 Type 2 diabetes mellitus with diabetic peripheral angiopathy with gangrene; I96 Gangrene, not elsewhere classified; E11.65 Type 2 diabetes mellitus with hyperglycemia; M16.0 Bilateral primary osteoarthritis of hip; I10 Essential (primary) hypertension; E11.610 Type 2 diabetes mellitus with diabetic neuropathic arthropathy; F12.90 Cannabis use, unspecified, uncomplicated; Z79.4 Long term (current) use of insulin; Z87.891 Personal history of nicotine dependence; X58.XXXD Exposure to other specified factors, subsequent encounter | CPT/HCPCS: 97597; 97598 ==

== ENCOUNTER → 2020-10-29 | Outpatient (CLI) | payer MEDICAID | END | disposition home or self-care (01) | LOC: WOUND 08:55 | PROVIDERS: ATTEND Internal Medicine | DX: E11.622 Type 2 diabetes mellitus with other skin ulcer (principal); L97.815 Non-pressure chronic ulcer of other part of right lower leg with muscle involvement without evidence of necrosis; S81.801D Unspecified open wound, right lower leg, subsequent encounter; M72.6 Necrotizing fasciitis; B95.62 Methicillin resistant Staphylococcus aureus infection as the cause of diseases classified elsewhere; E11.52 Type 2 diabetes mellitus with diabetic peripheral angiopathy with gangrene; I96 Gangrene, not elsewhere classified; E11.65 Type 2 diabetes mellitus with hyperglycemia; M16.0 Bilateral primary osteoarthritis of hip; I10 Essential (primary) hypertension; E11.610 Type 2 diabetes mellitus with diabetic neuropathic arthropathy; F12.90 Cannabis use, unspecified, uncomplicated; Z79.4 Long term (current) use of insulin; Z87.891 Personal history of nicotine dependence; X58.XXXD Exposure to other specified factors, subsequent encounter | CPT/HCPCS: 99213 ==

== ENCOUNTER → 2020-10-31 | Outpatient (CLI) | payer MEDICAID | END | disposition home or self-care (01) | LOC: WOUND 09:32 | PROVIDERS: ATTEND Internal Medicine | DX: E11.622 Type 2 diabetes mellitus with other skin ulcer (principal); L97.815 Non-pressure chronic ulcer of other part of right lower leg with muscle involvement without evidence of necrosis; S81.801D Unspecified open wound, right lower leg, subsequent encounter; M72.6 Necrotizing fasciitis; B95.62 Methicillin resistant Staphylococcus aureus infection as the cause of diseases classified elsewhere; E11.52 Type 2 diabetes mellitus with diabetic peripheral angiopathy with gangrene; I96 Gangrene, not elsewhere classified; E11.65 Type 2 diabetes mellitus with hyperglycemia; M16.0 Bilateral primary osteoarthritis of hip; I10 Essential (primary) hypertension; E11.610 Type 2 diabetes mellitus with diabetic neuropathic arthropathy; F12.90 Cannabis use, unspecified, uncomplicated; Z79.4 Long term (current) use of insulin; Z87.891 Personal history of nicotine dependence; X58.XXXD Exposure to other specified factors, subsequent encounter | CPT/HCPCS: 99214 ==

== ENCOUNTER → 2020-11-03 | Outpatient (CLI) | payer MEDICAID | END | disposition home or self-care (01) | LOC: WOUND 09:24 | PROVIDERS: ATTEND Internal Medicine | DX: E11.622 Type 2 diabetes mellitus with other skin ulcer (principal); L97.815 Non-pressure chronic ulcer of other part of right lower leg with muscle involvement without evidence of necrosis; S81.801D Unspecified open wound, right lower leg, subsequent encounter; M72.6 Necrotizing fasciitis; B95.62 Methicillin resistant Staphylococcus aureus infection as the cause of diseases classified elsewhere; E11.52 Type 2 diabetes mellitus with diabetic peripheral angiopathy with gangrene; I96 Gangrene, not elsewhere classified; E11.65 Type 2 diabetes mellitus with hyperglycemia; M16.0 Bilateral primary osteoarthritis of hip; I10 Essential (primary) hypertension; E11.610 Type 2 diabetes mellitus with diabetic neuropathic arthropathy; F12.90 Cannabis use, unspecified, uncomplicated; Z79.4 Long term (current) use of insulin; Z87.891 Personal history of nicotine dependence; X58.XXXD Exposure to other specified factors, subsequent encounter | CPT/HCPCS: 99214 ==

== ENCOUNTER → 2020-11-05 | Outpatient (CLI) | payer MEDICAID | END | disposition home or self-care (01) | LOC: WOUND 08:53 | PROVIDERS: ATTEND Internal Medicine | DX: E11.622 Type 2 diabetes mellitus with other skin ulcer (principal); L97.815 Non-pressure chronic ulcer of other part of right lower leg with muscle involvement without evidence of necrosis; S81.801D Unspecified open wound, right lower leg, subsequent encounter; M72.6 Necrotizing fasciitis; B95.62 Methicillin resistant Staphylococcus aureus infection as the cause of diseases classified elsewhere; E11.52 Type 2 diabetes mellitus with diabetic peripheral angiopathy with gangrene; I96 Gangrene, not elsewhere classified; E11.65 Type 2 diabetes mellitus with hyperglycemia; M16.0 Bilateral primary osteoarthritis of hip; I10 Essential (primary) hypertension; E11.610 Type 2 diabetes mellitus with diabetic neuropathic arthropathy; F12.90 Cannabis use, unspecified, uncomplicated; Z79.4 Long term (current) use of insulin; Z87.891 Personal history of nicotine dependence; X58.XXXD Exposure to other specified factors, subsequent encounter | CPT/HCPCS: 97597; 97598 ==

== ENCOUNTER → 2020-11-07 | Outpatient (CLI) | payer MEDICAID | END | disposition home or self-care (01) | LOC: WOUND 09:09 | PROVIDERS: ATTEND Internal Medicine Cardiovascular Disease | DX: E11.622 Type 2 diabetes mellitus with other skin ulcer (principal); L97.815 Non-pressure chronic ulcer of other part of right lower leg with muscle involvement without evidence of necrosis; S81.801D Unspecified open wound, right lower leg, subsequent encounter; M72.6 Necrotizing fasciitis; B95.62 Methicillin resistant Staphylococcus aureus infection as the cause of diseases classified elsewhere; E11.52 Type 2 diabetes mellitus with diabetic peripheral angiopathy with gangrene; I96 Gangrene, not elsewhere classified; E11.65 Type 2 diabetes mellitus with hyperglycemia; M16.0 Bilateral primary osteoarthritis of hip; I10 Essential (primary) hypertension; E11.610 Type 2 diabetes mellitus with diabetic neuropathic arthropathy; F12.90 Cannabis use, unspecified, uncomplicated; Z79.4 Long term (current) use of insulin; Z87.891 Personal history of nicotine dependence; X58.XXXD Exposure to other specified factors, subsequent encounter | CPT/HCPCS: 99213 ==

== ENCOUNTER → 2020-11-10 | Outpatient (CLI) | payer MEDICAID | END | disposition home or self-care (01) | LOC: WOUND 09:07 | PROVIDERS: ATTEND Internal Medicine | DX: E11.622 Type 2 diabetes mellitus with other skin ulcer (principal); L97.815 Non-pressure chronic ulcer of other part of right lower leg with muscle involvement without evidence of necrosis; S81.801D Unspecified open wound, right lower leg, subsequent encounter; B95.62 Methicillin resistant Staphylococcus aureus infection as the cause of diseases classified elsewhere; E11.52 Type 2 diabetes mellitus with diabetic peripheral angiopathy with gangrene; I96 Gangrene, not elsewhere classified; M72.6 Necrotizing fasciitis; E11.65 Type 2 diabetes mellitus with hyperglycemia; I10 Essential (primary) hypertension; M16.0 Bilateral primary osteoarthritis of hip; E11.610 Type 2 diabetes mellitus with diabetic neuropathic arthropathy; Z87.891 Personal history of nicotine dependence; Z79.4 Long term (current) use of insulin; X58.XXXD Exposure to other specified factors, subsequent encounter | CPT/HCPCS: 99214 ==

== ENCOUNTER → 2020-11-12 | Outpatient (CLI) | payer MEDICAID | END | disposition home or self-care (01) | LOC: WOUND 09:24 | PROVIDERS: ATTEND Internal Medicine | DX: E11.622 Type 2 diabetes mellitus with other skin ulcer (principal); L97.815 Non-pressure chronic ulcer of other part of right lower leg with muscle involvement without evidence of necrosis; S81.801D Unspecified open wound, right lower leg, subsequent encounter; B95.62 Methicillin resistant Staphylococcus aureus infection as the cause of diseases classified elsewhere; E11.52 Type 2 diabetes mellitus with diabetic peripheral angiopathy with gangrene; I96 Gangrene, not elsewhere classified; M72.6 Necrotizing fasciitis; E11.65 Type 2 diabetes mellitus with hyperglycemia; I10 Essential (primary) hypertension; M16.0 Bilateral primary osteoarthritis of hip; E11.610 Type 2 diabetes mellitus with diabetic neuropathic arthropathy; F12.90 Cannabis use, unspecified, uncomplicated; Z87.891 Personal history of nicotine dependence; Z79.4 Long term (current) use of insulin; X58.XXXD Exposure to other specified factors, subsequent encounter | CPT/HCPCS: 99213 ==

== ENCOUNTER → 2020-11-17 | Outpatient (CLI) | payer MEDICAID | END | disposition home or self-care (01) | LOC: WOUND 09:17 | PROVIDERS: ATTEND Internal Medicine Cardiovascular Disease | DX: E11.622 Type 2 diabetes mellitus with other skin ulcer (principal); L97.815 Non-pressure chronic ulcer of other part of right lower leg with muscle involvement without evidence of necrosis; S81.801D Unspecified open wound, right lower leg, subsequent encounter; B95.62 Methicillin resistant Staphylococcus aureus infection as the cause of diseases classified elsewhere; E11.52 Type 2 diabetes mellitus with diabetic peripheral angiopathy with gangrene; I96 Gangrene, not elsewhere classified; M72.6 Necrotizing fasciitis; E11.65 Type 2 diabetes mellitus with hyperglycemia; I10 Essential (primary) hypertension; M16.0 Bilateral primary osteoarthritis of hip; E11.610 Type 2 diabetes mellitus with diabetic neuropathic arthropathy; F12.90 Cannabis use, unspecified, uncomplicated; Z87.891 Personal history of nicotine dependence; Z79.4 Long term (current) use of insulin; X58.XXXD Exposure to other specified factors, subsequent encounter | CPT/HCPCS: 99214 ==

== ENCOUNTER → 2020-11-24 | Outpatient (CLI) | payer MEDICAID | END | disposition home or self-care (01) | LOC: WOUND 08:37 | PROVIDERS: ATTEND Internal Medicine | DX: E11.622 Type 2 diabetes mellitus with other skin ulcer (principal); L97.815 Non-pressure chronic ulcer of other part of right lower leg with muscle involvement without evidence of necrosis; S81.801D Unspecified open wound, right lower leg, subsequent encounter; B95.62 Methicillin resistant Staphylococcus aureus infection as the cause of diseases classified elsewhere; E11.52 Type 2 diabetes mellitus with diabetic peripheral angiopathy with gangrene; I96 Gangrene, not elsewhere classified; M72.6 Necrotizing fasciitis; E11.65 Type 2 diabetes mellitus with hyperglycemia; I10 Essential (primary) hypertension; M16.0 Bilateral primary osteoarthritis of hip; E11.610 Type 2 diabetes mellitus with diabetic neuropathic arthropathy; F12.90 Cannabis use, unspecified, uncomplicated; Z87.891 Personal history of nicotine dependence; Z79.4 Long term (current) use of insulin; X58.XXXD Exposure to other specified factors, subsequent encounter | CPT/HCPCS: 97597; 97598 ==

== ENCOUNTER → 2020-11-26 | Outpatient (CLI) | payer MEDICAID | END | disposition home or self-care (01) | LOC: WOUND 09:06 | PROVIDERS: ATTEND Internal Medicine | DX: E11.622 Type 2 diabetes mellitus with other skin ulcer (principal); L97.815 Non-pressure chronic ulcer of other part of right lower leg with muscle involvement without evidence of necrosis; S81.801D Unspecified open wound, right lower leg, subsequent encounter; B95.62 Methicillin resistant Staphylococcus aureus infection as the cause of diseases classified elsewhere; E11.52 Type 2 diabetes mellitus with diabetic peripheral angiopathy with gangrene; I96 Gangrene, not elsewhere classified; M72.6 Necrotizing fasciitis; E11.65 Type 2 diabetes mellitus with hyperglycemia; I10 Essential (primary) hypertension; M16.0 Bilateral primary osteoarthritis of hip; E11.610 Type 2 diabetes mellitus with diabetic neuropathic arthropathy; F12.90 Cannabis use, unspecified, uncomplicated; Z87.891 Personal history of nicotine dependence; Z79.4 Long term (current) use of insulin; X58.XXXD Exposure to other specified factors, subsequent encounter | CPT/HCPCS: 99214 ==

== ENCOUNTER → 2020-12-01 | Outpatient (CLI) | payer MEDICAID | END | disposition home or self-care (01) | LOC: WOUND 09:06 | PROVIDERS: ATTEND Internal Medicine | DX: E11.622 Type 2 diabetes mellitus with other skin ulcer (principal); L97.815 Non-pressure chronic ulcer of other part of right lower leg with muscle involvement without evidence of necrosis; S81.801D Unspecified open wound, right lower leg, subsequent encounter; B95.62 Methicillin resistant Staphylococcus aureus infection as the cause of diseases classified elsewhere; E11.52 Type 2 diabetes mellitus with diabetic peripheral angiopathy with gangrene; I96 Gangrene, not elsewhere classified; M72.6 Necrotizing fasciitis; E11.65 Type 2 diabetes mellitus with hyperglycemia; I10 Essential (primary) hypertension; M16.0 Bilateral primary osteoarthritis of hip; E11.610 Type 2 diabetes mellitus with diabetic neuropathic arthropathy; F12.90 Cannabis use, unspecified, uncomplicated; Z87.891 Personal history of nicotine dependence; Z79.4 Long term (current) use of insulin; X58.XXXD Exposure to other specified factors, subsequent encounter | CPT/HCPCS: 97597; 97598 ==

== ENCOUNTER 2020-12-08 09:15 | Outpatient (CLI) | payer MEDICAID | END 2020-12-08 23:59 | disposition home or self-care (01) | LOC: WOUND 09:15 | PROVIDERS: ATTEND Internal Medicine | DX: M72.6 Necrotizing fasciitis (principal); E11.622 Type 2 diabetes mellitus with other skin ulcer; L97.815 Non-pressure chronic ulcer of other part of right lower leg with muscle involvement without evidence of necrosis; L97.212 Non-pressure chronic ulcer of right calf with fat layer exposed; S81.801D Unspecified open wound, right lower leg, subsequent encounter; B95.62 Methicillin resistant Staphylococcus aureus infection as the cause of diseases classified elsewhere; E11.52 Type 2 diabetes mellitus with diabetic peripheral angiopathy with gangrene; I96 Gangrene, not elsewhere classified; E11.65 Type 2 diabetes mellitus with hyperglycemia; I10 Essential (primary) hypertension; M16.0 Bilateral primary osteoarthritis of hip; E11.610 Type 2 diabetes mellitus with diabetic neuropathic arthropathy; F12.90 Cannabis use, unspecified, uncomplicated; Z87.891 Personal history of nicotine dependence; Z79.4 Long term (current) use of insulin; X58.XXXD Exposure to other specified factors, subsequent encounter | CPT/HCPCS: 97597; 97598 ==

== ENCOUNTER → 2020-12-10 | Outpatient (CLI) | payer MEDICAID | END | disposition home or self-care (01) | LOC: WOUND 09:26 | PROVIDERS: ATTEND Internal Medicine | DX: E11.622 Type 2 diabetes mellitus with other skin ulcer (principal); L97.815 Non-pressure chronic ulcer of other part of right lower leg with muscle involvement without evidence of necrosis; L97.212 Non-pressure chronic ulcer of right calf with fat layer exposed; M72.6 Necrotizing fasciitis; S81.801D Unspecified open wound, right lower leg, subsequent encounter; B95.62 Methicillin resistant Staphylococcus aureus infection as the cause of diseases classified elsewhere; E11.52 Type 2 diabetes mellitus with diabetic peripheral angiopathy with gangrene; I96 Gangrene, not elsewhere classified; E11.65 Type 2 diabetes mellitus with hyperglycemia; I10 Essential (primary) hypertension; M16.0 Bilateral primary osteoarthritis of hip; E11.610 Type 2 diabetes mellitus with diabetic neuropathic arthropathy; F12.90 Cannabis use, unspecified, uncomplicated; Z87.891 Personal history of nicotine dependence; Z79.4 Long term (current) use of insulin; X58.XXXD Exposure to other specified factors, subsequent encounter | CPT/HCPCS: 99213 ==

== ENCOUNTER → 2020-12-12 | Outpatient (CLI) | payer MEDICAID | END | disposition home or self-care (01) | LOC: WOUND 09:46 | PROVIDERS: ATTEND Internal Medicine | DX: E11.622 Type 2 diabetes mellitus with other skin ulcer (principal); L97.815 Non-pressure chronic ulcer of other part of right lower leg with muscle involvement without evidence of necrosis; L97.212 Non-pressure chronic ulcer of right calf with fat layer exposed; M72.6 Necrotizing fasciitis; S81.801D Unspecified open wound, right lower leg, subsequent encounter; B95.62 Methicillin resistant Staphylococcus aureus infection as the cause of diseases classified elsewhere; E11.52 Type 2 diabetes mellitus with diabetic peripheral angiopathy with gangrene; I96 Gangrene, not elsewhere classified; E11.65 Type 2 diabetes mellitus with hyperglycemia; I10 Essential (primary) hypertension; M16.0 Bilateral primary osteoarthritis of hip; E11.610 Type 2 diabetes mellitus with diabetic neuropathic arthropathy; F12.90 Cannabis use, unspecified, uncomplicated; Z87.891 Personal history of nicotine dependence; Z79.4 Long term (current) use of insulin; X58.XXXD Exposure to other specified factors, subsequent encounter | CPT/HCPCS: 99213 ==

== ENCOUNTER → 2020-12-15 | Outpatient (CLI) | payer MEDICAID | END | disposition home or self-care (01) | LOC: WOUND 09:14 | PROVIDERS: ATTEND Internal Medicine | DX: E11.622 Type 2 diabetes mellitus with other skin ulcer (principal); L97.815 Non-pressure chronic ulcer of other part of right lower leg with muscle involvement without evidence of necrosis; L97.212 Non-pressure chronic ulcer of right calf with fat layer exposed; S81.801D Unspecified open wound, right lower leg, subsequent encounter; M72.6 Necrotizing fasciitis; B95.62 Methicillin resistant Staphylococcus aureus infection as the cause of diseases classified elsewhere; E11.52 Type 2 diabetes mellitus with diabetic peripheral angiopathy with gangrene; I96 Gangrene, not elsewhere classified; E11.65 Type 2 diabetes mellitus with hyperglycemia; I10 Essential (primary) hypertension; M16.0 Bilateral primary osteoarthritis of hip; E11.610 Type 2 diabetes mellitus with diabetic neuropathic arthropathy; F12.90 Cannabis use, unspecified, uncomplicated; Z87.891 Personal history of nicotine dependence; Z79.4 Long term (current) use of insulin; X58.XXXD Exposure to other specified factors, subsequent encounter | CPT/HCPCS: 97597; 97598 ==

== ENCOUNTER → 2020-12-17 | Outpatient (CLI) | payer MEDICAID | END | disposition home or self-care (01) | LOC: WOUND 08:20 | PROVIDERS: ATTEND Internal Medicine | DX: E11.622 Type 2 diabetes mellitus with other skin ulcer (principal); L97.815 Non-pressure chronic ulcer of other part of right lower leg with muscle involvement without evidence of necrosis; L97.212 Non-pressure chronic ulcer of right calf with fat layer exposed; M72.6 Necrotizing fasciitis; S81.801D Unspecified open wound, right lower leg, subsequent encounter; B95.62 Methicillin resistant Staphylococcus aureus infection as the cause of diseases classified elsewhere; E11.52 Type 2 diabetes mellitus with diabetic peripheral angiopathy with gangrene; I96 Gangrene, not elsewhere classified; E11.65 Type 2 diabetes mellitus with hyperglycemia; I10 Essential (primary) hypertension; M16.0 Bilateral primary osteoarthritis of hip; E11.610 Type 2 diabetes mellitus with diabetic neuropathic arthropathy; F12.90 Cannabis use, unspecified, uncomplicated; Z87.891 Personal history of nicotine dependence; Z79.4 Long term (current) use of insulin; X58.XXXD Exposure to other specified factors, subsequent encounter | CPT/HCPCS: 99213 ==

== ENCOUNTER 2020-12-19 09:36 | Outpatient (CLI) | payer MEDICAID ==
[~2020-12-19 09:36] MED LIST changes: -OXYC5TAB3 PO; +OXYC5TAB98 PO
== END 2020-12-19 23:59 | disposition home or self-care (01) ==
LOC: WOUND 09:36
PROVIDERS: ATTEND Internal Medicine Cardiovascular Disease
DX: E11.622 Type 2 diabetes mellitus with other skin ulcer (principal); L97.812 Non-pressure chronic ulcer of other part of right lower leg with fat layer exposed; L97.212 Non-pressure chronic ulcer of right calf with fat layer exposed; S81.801D Unspecified open wound, right lower leg, subsequent encounter; M72.6 Necrotizing fasciitis; B95.62 Methicillin resistant Staphylococcus aureus infection as the cause of diseases classified elsewhere; E11.52 Type 2 diabetes mellitus with diabetic peripheral angiopathy with gangrene; I96 Gangrene, not elsewhere classified; E11.65 Type 2 diabetes mellitus with hyperglycemia; I10 Essential (primary) hypertension; M16.0 Bilateral primary osteoarthritis of hip; E11.610 Type 2 diabetes mellitus with diabetic neuropathic arthropathy; F12.90 Cannabis use, unspecified, uncomplicated; Z87.891 Personal history of nicotine dependence; Z79.4 Long term (current) use of insulin; X58.XXXD Exposure to other specified factors, subsequent encounter
CPT/HCPCS: 99215

== ENCOUNTER → 2020-12-26 | Outpatient (CLI) | payer MEDICAID | END | disposition home or self-care (01) | LOC: WOUND 09:47 | PROVIDERS: ATTEND Internal Medicine | DX: E11.622 Type 2 diabetes mellitus with other skin ulcer (principal); L97.815 Non-pressure chronic ulcer of other part of right lower leg with muscle involvement without evidence of necrosis; L97.212 Non-pressure chronic ulcer of right calf with fat layer exposed; S81.801D Unspecified open wound, right lower leg, subsequent encounter; M72.6 Necrotizing fasciitis; B95.62 Methicillin resistant Staphylococcus aureus infection as the cause of diseases classified elsewhere; E11.52 Type 2 diabetes mellitus with diabetic peripheral angiopathy with gangrene; I96 Gangrene, not elsewhere classified; E11.65 Type 2 diabetes mellitus with hyperglycemia; I10 Essential (primary) hypertension; M16.0 Bilateral primary osteoarthritis of hip; E11.610 Type 2 diabetes mellitus with diabetic neuropathic arthropathy; F12.90 Cannabis use, unspecified, uncomplicated; E78.5 Hyperlipidemia, unspecified; I77.1 Stricture of artery; Z87.891 Personal history of nicotine dependence; Z79.4 Long term (current) use of insulin; X58.XXXD Exposure to other specified factors, subsequent encounter | CPT/HCPCS: 97597; 97598 ==

== ENCOUNTER → 2020-12-26 | Outpatient (CLI) | payer MEDICAID | END | disposition home or self-care (01) | LOC: CVU 12:10 | PROVIDERS: ATTEND Internal Medicine | DX: E11.621 Type 2 diabetes mellitus with foot ulcer (principal); L97.212 Non-pressure chronic ulcer of right calf with fat layer exposed; I10 Essential (primary) hypertension; E78.5 Hyperlipidemia, unspecified; I77.1 Stricture of artery; M72.6 Necrotizing fasciitis; Z87.891 Personal history of nicotine dependence | CPT/HCPCS: 93922; 93925; 93970 ==

== ENCOUNTER → 2021-01-05 | Outpatient (CLI) | payer MEDICAID | END | disposition home or self-care (01) | LOC: WOUND 12:39 | PROVIDERS: ATTEND Internal Medicine | DX: E11.622 Type 2 diabetes mellitus with other skin ulcer (principal); L97.815 Non-pressure chronic ulcer of other part of right lower leg with muscle involvement without evidence of necrosis; L97.212 Non-pressure chronic ulcer of right calf with fat layer exposed; S81.801D Unspecified open wound, right lower leg, subsequent encounter; M72.6 Necrotizing fasciitis; B95.62 Methicillin resistant Staphylococcus aureus infection as the cause of diseases classified elsewhere; E11.52 Type 2 diabetes mellitus with diabetic peripheral angiopathy with gangrene; I96 Gangrene, not elsewhere classified; E11.65 Type 2 diabetes mellitus with hyperglycemia; I10 Essential (primary) hypertension; M16.0 Bilateral primary osteoarthritis of hip; E11.610 Type 2 diabetes mellitus with diabetic neuropathic arthropathy; F12.90 Cannabis use, unspecified, uncomplicated; E78.5 Hyperlipidemia, unspecified; I77.1 Stricture of artery; Z87.891 Personal history of nicotine dependence; Z79.4 Long term (current) use of insulin; X58.XXXD Exposure to other specified factors, subsequent encounter | CPT/HCPCS: 29580 ==

== ENCOUNTER → 2021-01-07 | Outpatient (CLI) | payer MEDICAID | END | disposition home or self-care (01) | LOC: WOUND 07:53 | PROVIDERS: ATTEND Internal Medicine | DX: E11.622 Type 2 diabetes mellitus with other skin ulcer (principal); L97.815 Non-pressure chronic ulcer of other part of right lower leg with muscle involvement without evidence of necrosis; L97.212 Non-pressure chronic ulcer of right calf with fat layer exposed; S81.801D Unspecified open wound, right lower leg, subsequent encounter; M72.6 Necrotizing fasciitis; B95.62 Methicillin resistant Staphylococcus aureus infection as the cause of diseases classified elsewhere; E11.52 Type 2 diabetes mellitus with diabetic peripheral angiopathy with gangrene; I96 Gangrene, not elsewhere classified; E11.65 Type 2 diabetes mellitus with hyperglycemia; I10 Essential (primary) hypertension; M16.0 Bilateral primary osteoarthritis of hip; E11.610 Type 2 diabetes mellitus with diabetic neuropathic arthropathy; F12.90 Cannabis use, unspecified, uncomplicated; E78.5 Hyperlipidemia, unspecified; I77.1 Stricture of artery; Z87.891 Personal history of nicotine dependence; Z79.4 Long term (current) use of insulin; X58.XXXD Exposure to other specified factors, subsequent encounter | CPT/HCPCS: 97597; 97598 ==

== ENCOUNTER → 2021-01-12 | Outpatient (CLI) | payer MEDICAID | END | disposition home or self-care (01) | LOC: WOUND 10:48 | PROVIDERS: ATTEND Internal Medicine | DX: E11.622 Type 2 diabetes mellitus with other skin ulcer (principal); L97.815 Non-pressure chronic ulcer of other part of right lower leg with muscle involvement without evidence of necrosis; L97.212 Non-pressure chronic ulcer of right calf with fat layer exposed; S81.801D Unspecified open wound, right lower leg, subsequent encounter; M72.6 Necrotizing fasciitis; B95.62 Methicillin resistant Staphylococcus aureus infection as the cause of diseases classified elsewhere; E11.52 Type 2 diabetes mellitus with diabetic peripheral angiopathy with gangrene; I96 Gangrene, not elsewhere classified; E11.65 Type 2 diabetes mellitus with hyperglycemia; I10 Essential (primary) hypertension; M16.0 Bilateral primary osteoarthritis of hip; E11.610 Type 2 diabetes mellitus with diabetic neuropathic arthropathy; F12.90 Cannabis use, unspecified, uncomplicated; E78.5 Hyperlipidemia, unspecified; I77.1 Stricture of artery; Z87.891 Personal history of nicotine dependence; Z79.4 Long term (current) use of insulin; X58.XXXD Exposure to other specified factors, subsequent encounter | CPT/HCPCS: 29581 ==

== ENCOUNTER → 2021-01-14 | Outpatient (CLI) | payer MEDICAID | END | disposition home or self-care (01) | LOC: WOUND 08:54 | PROVIDERS: ATTEND Internal Medicine | DX: E11.622 Type 2 diabetes mellitus with other skin ulcer (principal); L97.212 Non-pressure chronic ulcer of right calf with fat layer exposed; L97.815 Non-pressure chronic ulcer of other part of right lower leg with muscle involvement without evidence of necrosis; S81.801D Unspecified open wound, right lower leg, subsequent encounter; M72.6 Necrotizing fasciitis; B95.62 Methicillin resistant Staphylococcus aureus infection as the cause of diseases classified elsewhere; E11.52 Type 2 diabetes mellitus with diabetic peripheral angiopathy with gangrene; I96 Gangrene, not elsewhere classified; E11.65 Type 2 diabetes mellitus with hyperglycemia; I10 Essential (primary) hypertension; M16.0 Bilateral primary osteoarthritis of hip; E11.610 Type 2 diabetes mellitus with diabetic neuropathic arthropathy; F12.90 Cannabis use, unspecified, uncomplicated; E78.5 Hyperlipidemia, unspecified; I77.1 Stricture of artery; Z87.891 Personal history of nicotine dependence; Z79.4 Long term (current) use of insulin; X58.XXXD Exposure to other specified factors, subsequent encounter | CPT/HCPCS: 97597; 97598 ==

== ENCOUNTER → 2021-01-26 | Outpatient (CLI) | payer MEDICAID | END | disposition home or self-care (01) | LOC: WOUND 08:40 | PROVIDERS: ATTEND Internal Medicine | DX: E11.622 Type 2 diabetes mellitus with other skin ulcer (principal); L97.212 Non-pressure chronic ulcer of right calf with fat layer exposed; L97.815 Non-pressure chronic ulcer of other part of right lower leg with muscle involvement without evidence of necrosis; S81.801D Unspecified open wound, right lower leg, subsequent encounter; M72.6 Necrotizing fasciitis; B95.62 Methicillin resistant Staphylococcus aureus infection as the cause of diseases classified elsewhere; E11.52 Type 2 diabetes mellitus with diabetic peripheral angiopathy with gangrene; I96 Gangrene, not elsewhere classified; E11.65 Type 2 diabetes mellitus with hyperglycemia; I10 Essential (primary) hypertension; M16.0 Bilateral primary osteoarthritis of hip; E11.610 Type 2 diabetes mellitus with diabetic neuropathic arthropathy; F12.90 Cannabis use, unspecified, uncomplicated; E78.5 Hyperlipidemia, unspecified; I77.1 Stricture of artery; Z87.891 Personal history of nicotine dependence; Z79.4 Long term (current) use of insulin; X58.XXXD Exposure to other specified factors, subsequent encounter | CPT/HCPCS: 97597; 97598 ==

== ENCOUNTER → 2021-02-02 | Outpatient (CLI) | payer MEDICAID | END | disposition home or self-care (01) | LOC: WOUND 08:30 | PROVIDERS: ATTEND Internal Medicine Cardiovascular Disease | DX: E11.622 Type 2 diabetes mellitus with other skin ulcer (principal); L97.212 Non-pressure chronic ulcer of right calf with fat layer exposed; L97.815 Non-pressure chronic ulcer of other part of right lower leg with muscle involvement without evidence of necrosis; S81.801D Unspecified open wound, right lower leg, subsequent encounter; M72.6 Necrotizing fasciitis; B95.62 Methicillin resistant Staphylococcus aureus infection as the cause of diseases classified elsewhere; E11.52 Type 2 diabetes mellitus with diabetic peripheral angiopathy with gangrene; I96 Gangrene, not elsewhere classified; E11.65 Type 2 diabetes mellitus with hyperglycemia; I10 Essential (primary) hypertension; M16.0 Bilateral primary osteoarthritis of hip; E11.610 Type 2 diabetes mellitus with diabetic neuropathic arthropathy; F12.90 Cannabis use, unspecified, uncomplicated; E78.5 Hyperlipidemia, unspecified; I77.1 Stricture of artery; Z87.891 Personal history of nicotine dependence; Z79.4 Long term (current) use of insulin; X58.XXXD Exposure to other specified factors, subsequent encounter | CPT/HCPCS: 29580 ==

== ENCOUNTER → 2021-02-09 | Outpatient (CLI) | payer MEDICAID | END | disposition home or self-care (01) | LOC: WOUND 08:15 | PROVIDERS: ATTEND Internal Medicine | DX: E11.622 Type 2 diabetes mellitus with other skin ulcer (principal); L97.815 Non-pressure chronic ulcer of other part of right lower leg with muscle involvement without evidence of necrosis; L97.212 Non-pressure chronic ulcer of right calf with fat layer exposed; S81.801D Unspecified open wound, right lower leg, subsequent encounter; M72.6 Necrotizing fasciitis; B95.62 Methicillin resistant Staphylococcus aureus infection as the cause of diseases classified elsewhere; E11.52 Type 2 diabetes mellitus with diabetic peripheral angiopathy with gangrene; I96 Gangrene, not elsewhere classified; I10 Essential (primary) hypertension; M16.0 Bilateral primary osteoarthritis of hip; E11.610 Type 2 diabetes mellitus with diabetic neuropathic arthropathy; F12.90 Cannabis use, unspecified, uncomplicated; E78.5 Hyperlipidemia, unspecified; I77.1 Stricture of artery; Z87.891 Personal history of nicotine dependence; Z79.4 Long term (current) use of insulin; X58.XXXD Exposure to other specified factors, subsequent encounter | CPT/HCPCS: 97597; 97598 ==

== ENCOUNTER → 2021-02-16 | Outpatient (CLI) | payer MEDICAID | END | disposition home or self-care (01) | LOC: WOUND 08:17 | PROVIDERS: ATTEND Internal Medicine | DX: E11.622 Type 2 diabetes mellitus with other skin ulcer (principal); L97.515 Non-pressure chronic ulcer of other part of right foot with muscle involvement without evidence of necrosis; L97.212 Non-pressure chronic ulcer of right calf with fat layer exposed; S81.801D Unspecified open wound, right lower leg, subsequent encounter; B95.62 Methicillin resistant Staphylococcus aureus infection as the cause of diseases classified elsewhere; E11.610 Type 2 diabetes mellitus with diabetic neuropathic arthropathy; E11.52 Type 2 diabetes mellitus with diabetic peripheral angiopathy with gangrene; I96 Gangrene, not elsewhere classified; E11.65 Type 2 diabetes mellitus with hyperglycemia; I10 Essential (primary) hypertension; M72.6 Necrotizing fasciitis; M16.0 Bilateral primary osteoarthritis of hip; E78.5 Hyperlipidemia, unspecified; Z87.891 Personal history of nicotine dependence; Z79.4 Long term (current) use of insulin; Z79.899 Other long term (current) drug therapy; X58.XXXD Exposure to other specified factors, subsequent encounter | CPT/HCPCS: 97597; 97598 ==

== ENCOUNTER → 2021-02-23 | Outpatient (CLI) | payer MEDICAID | END | disposition home or self-care (01) | LOC: WOUND 08:17 | PROVIDERS: ATTEND Internal Medicine | DX: E11.622 Type 2 diabetes mellitus with other skin ulcer (principal); L97.815 Non-pressure chronic ulcer of other part of right lower leg with muscle involvement without evidence of necrosis; L97.212 Non-pressure chronic ulcer of right calf with fat layer exposed; S81.801D Unspecified open wound, right lower leg, subsequent encounter; B95.62 Methicillin resistant Staphylococcus aureus infection as the cause of diseases classified elsewhere; E11.610 Type 2 diabetes mellitus with diabetic neuropathic arthropathy; E11.52 Type 2 diabetes mellitus with diabetic peripheral angiopathy with gangrene; I96 Gangrene, not elsewhere classified; E11.65 Type 2 diabetes mellitus with hyperglycemia; I10 Essential (primary) hypertension; M72.6 Necrotizing fasciitis; M16.0 Bilateral primary osteoarthritis of hip; F12.90 Cannabis use, unspecified, uncomplicated; E78.5 Hyperlipidemia, unspecified; I77.1 Stricture of artery; Z87.891 Personal history of nicotine dependence; Z79.4 Long term (current) use of insulin; Z79.899 Other long term (current) drug therapy; X58.XXXD Exposure to other specified factors, subsequent encounter | CPT/HCPCS: 97597; 97598 ==

== ENCOUNTER 2021-03-02 08:08 | Outpatient (CLI) | payer MEDICAID | END 2021-03-02 23:59 | disposition home or self-care (01) | LOC: WOUND 08:08 | PROVIDERS: ATTEND Internal Medicine | DX: E11.622 Type 2 diabetes mellitus with other skin ulcer (principal); L97.815 Non-pressure chronic ulcer of other part of right lower leg with muscle involvement without evidence of necrosis; L97.212 Non-pressure chronic ulcer of right calf with fat layer exposed; S81.801D Unspecified open wound, right lower leg, subsequent encounter; B95.62 Methicillin resistant Staphylococcus aureus infection as the cause of diseases classified elsewhere; E11.610 Type 2 diabetes mellitus with diabetic neuropathic arthropathy; E11.52 Type 2 diabetes mellitus with diabetic peripheral angiopathy with gangrene; I96 Gangrene, not elsewhere classified; E11.65 Type 2 diabetes mellitus with hyperglycemia; I10 Essential (primary) hypertension; M72.6 Necrotizing fasciitis; M16.0 Bilateral primary osteoarthritis of hip; F12.90 Cannabis use, unspecified, uncomplicated; E78.5 Hyperlipidemia, unspecified; I77.1 Stricture of artery; Z87.891 Personal history of nicotine dependence; Z79.4 Long term (current) use of insulin; Z79.899 Other long term (current) drug therapy; X58.XXXD Exposure to other specified factors, subsequent encounter | CPT/HCPCS: 97597; 97598 ==

== ENCOUNTER 2021-03-09 08:32 | Outpatient (CLI) | payer MEDICAID | END 2021-03-09 23:59 | disposition home or self-care (01) | LOC: WOUND 08:32 | PROVIDERS: ATTEND Internal Medicine | DX: E11.622 Type 2 diabetes mellitus with other skin ulcer (principal); L97.815 Non-pressure chronic ulcer of other part of right lower leg with muscle involvement without evidence of necrosis; L97.212 Non-pressure chronic ulcer of right calf with fat layer exposed; S81.801D Unspecified open wound, right lower leg, subsequent encounter; B95.62 Methicillin resistant Staphylococcus aureus infection as the cause of diseases classified elsewhere; E11.610 Type 2 diabetes mellitus with diabetic neuropathic arthropathy; E11.52 Type 2 diabetes mellitus with diabetic peripheral angiopathy with gangrene; I96 Gangrene, not elsewhere classified; E11.65 Type 2 diabetes mellitus with hyperglycemia; I10 Essential (primary) hypertension; M72.6 Necrotizing fasciitis; M16.0 Bilateral primary osteoarthritis of hip; F12.90 Cannabis use, unspecified, uncomplicated; E78.5 Hyperlipidemia, unspecified; I77.1 Stricture of artery; Z87.891 Personal history of nicotine dependence; Z79.4 Long term (current) use of insulin; Z79.899 Other long term (current) drug therapy; X58.XXXD Exposure to other specified factors, subsequent encounter | CPT/HCPCS: 97597; 97598 ==

== ENCOUNTER → 2021-03-23 | Outpatient (CLI) | payer MEDICAID | END | disposition home or self-care (01) | LOC: WOUND 08:04 | PROVIDERS: ATTEND Internal Medicine | DX: E11.622 Type 2 diabetes mellitus with other skin ulcer (principal); L97.815 Non-pressure chronic ulcer of other part of right lower leg with muscle involvement without evidence of necrosis; L97.212 Non-pressure chronic ulcer of right calf with fat layer exposed; S81.801D Unspecified open wound, right lower leg, subsequent encounter; B95.62 Methicillin resistant Staphylococcus aureus infection as the cause of diseases classified elsewhere; E11.610 Type 2 diabetes mellitus with diabetic neuropathic arthropathy; E11.52 Type 2 diabetes mellitus with diabetic peripheral angiopathy with gangrene; I96 Gangrene, not elsewhere classified; E11.65 Type 2 diabetes mellitus with hyperglycemia; I10 Essential (primary) hypertension; M72.6 Necrotizing fasciitis; M16.0 Bilateral primary osteoarthritis of hip; F12.90 Cannabis use, unspecified, uncomplicated; E78.5 Hyperlipidemia, unspecified; I77.1 Stricture of artery; Z87.891 Personal history of nicotine dependence; Z79.4 Long term (current) use of insulin; Z79.899 Other long term (current) drug therapy; X58.XXXD Exposure to other specified factors, subsequent encounter | CPT/HCPCS: 97597; 97598 ==

== ENCOUNTER 2021-04-06 09:49 | Outpatient (CLI) | payer MEDICAID | END 2021-04-06 23:59 | disposition home or self-care (01) | LOC: WOUND 09:49 | PROVIDERS: ATTEND Internal Medicine | DX: E11.622 Type 2 diabetes mellitus with other skin ulcer (principal); L97.815 Non-pressure chronic ulcer of other part of right lower leg with muscle involvement without evidence of necrosis; L97.212 Non-pressure chronic ulcer of right calf with fat layer exposed; S81.801D Unspecified open wound, right lower leg, subsequent encounter; B95.62 Methicillin resistant Staphylococcus aureus infection as the cause of diseases classified elsewhere; E11.610 Type 2 diabetes mellitus with diabetic neuropathic arthropathy; E11.52 Type 2 diabetes mellitus with diabetic peripheral angiopathy with gangrene; I96 Gangrene, not elsewhere classified; E11.65 Type 2 diabetes mellitus with hyperglycemia; I10 Essential (primary) hypertension; M72.6 Necrotizing fasciitis; M16.0 Bilateral primary osteoarthritis of hip; F12.90 Cannabis use, unspecified, uncomplicated; E78.5 Hyperlipidemia, unspecified; I77.1 Stricture of artery; Z87.891 Personal history of nicotine dependence; Z79.4 Long term (current) use of insulin; Z79.899 Other long term (current) drug therapy; X58.XXXD Exposure to other specified factors, subsequent encounter | CPT/HCPCS: 97597; 97598 ==

== ENCOUNTER → 2021-04-13 | Outpatient (CLI) | payer MEDICAID | END | disposition home or self-care (01) | LOC: WOUND 09:32 | PROVIDERS: ATTEND Internal Medicine | DX: E11.622 Type 2 diabetes mellitus with other skin ulcer (principal); L97.815 Non-pressure chronic ulcer of other part of right lower leg with muscle involvement without evidence of necrosis; L97.212 Non-pressure chronic ulcer of right calf with fat layer exposed; S81.801D Unspecified open wound, right lower leg, subsequent encounter; B95.62 Methicillin resistant Staphylococcus aureus infection as the cause of diseases classified elsewhere; E11.610 Type 2 diabetes mellitus with diabetic neuropathic arthropathy; E11.52 Type 2 diabetes mellitus with diabetic peripheral angiopathy with gangrene; I96 Gangrene, not elsewhere classified; E11.65 Type 2 diabetes mellitus with hyperglycemia; I10 Essential (primary) hypertension; M72.6 Necrotizing fasciitis; M16.0 Bilateral primary osteoarthritis of hip; F12.90 Cannabis use, unspecified, uncomplicated; E78.5 Hyperlipidemia, unspecified; I77.1 Stricture of artery; Z87.891 Personal history of nicotine dependence; Z79.4 Long term (current) use of insulin; Z79.899 Other long term (current) drug therapy; X58.XXXD Exposure to other specified factors, subsequent encounter | CPT/HCPCS: 97597; 97598 ==

== ENCOUNTER → 2021-04-20 | Outpatient (CLI) | payer MEDICAID | END | disposition home or self-care (01) | LOC: WOUND 09:00 | PROVIDERS: ATTEND Internal Medicine | DX: E11.622 Type 2 diabetes mellitus with other skin ulcer (principal); L97.815 Non-pressure chronic ulcer of other part of right lower leg with muscle involvement without evidence of necrosis; L97.212 Non-pressure chronic ulcer of right calf with fat layer exposed; S81.801D Unspecified open wound, right lower leg, subsequent encounter; B95.62 Methicillin resistant Staphylococcus aureus infection as the cause of diseases classified elsewhere; E11.610 Type 2 diabetes mellitus with diabetic neuropathic arthropathy; E11.52 Type 2 diabetes mellitus with diabetic peripheral angiopathy with gangrene; I96 Gangrene, not elsewhere classified; E11.65 Type 2 diabetes mellitus with hyperglycemia; I10 Essential (primary) hypertension; M72.6 Necrotizing fasciitis; M16.0 Bilateral primary osteoarthritis of hip; F12.90 Cannabis use, unspecified, uncomplicated; E78.5 Hyperlipidemia, unspecified; I77.1 Stricture of artery; Z87.891 Personal history of nicotine dependence; Z79.4 Long term (current) use of insulin; Z79.899 Other long term (current) drug therapy; X58.XXXD Exposure to other specified factors, subsequent encounter | CPT/HCPCS: 97597; 97598 ==

== ENCOUNTER → 2021-04-29 | Outpatient (CLI) | payer MEDICAID ==
[~2021-04-29] MED LIST changes: +LISI5TAB7 PO; +METF500T17 PO; +SITA100T PO
== END | disposition home or self-care (01) ==
LOC: WOUND 09:21
PROVIDERS: ATTEND Internal Medicine
DX: E11.622 Type 2 diabetes mellitus with other skin ulcer (principal); L97.815 Non-pressure chronic ulcer of other part of right lower leg with muscle involvement without evidence of necrosis; L97.212 Non-pressure chronic ulcer of right calf with fat layer exposed; S81.801D Unspecified open wound, right lower leg, subsequent encounter; B95.62 Methicillin resistant Staphylococcus aureus infection as the cause of diseases classified elsewhere; E11.610 Type 2 diabetes mellitus with diabetic neuropathic arthropathy; E11.52 Type 2 diabetes mellitus with diabetic peripheral angiopathy with gangrene; I96 Gangrene, not elsewhere classified; E11.65 Type 2 diabetes mellitus with hyperglycemia; I10 Essential (primary) hypertension; M72.6 Necrotizing fasciitis; M16.0 Bilateral primary osteoarthritis of hip; F12.90 Cannabis use, unspecified, uncomplicated; E78.5 Hyperlipidemia, unspecified; I77.1 Stricture of artery; Z87.891 Personal history of nicotine dependence; Z79.4 Long term (current) use of insulin; Z79.899 Other long term (current) drug therapy; X58.XXXD Exposure to other specified factors, subsequent encounter
CPT/HCPCS: 97597; 97598

== ENCOUNTER 2021-05-01 16:55 | Inpatient (IN) | payer MEDICAID ==
[~2021-05-01] VITALS: Ht 177.8 cm; Wt 91.4 kg
[~2021-05-01 16:55] MED LIST changes: -LISI5TAB7 PO; -METF500T17 PO; -SITA100T PO
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
[2021-05-01] MEDS ORDERED: ONDANSETRON 2MG/ML, 2ML IVPush ONE (18:00)
[2021-05-01] MEDS ORDERED: MORPHINE SULFATE 4 MG/ML, 1ML IVPush PRN ×2 (18:00→22:30)
[2021-05-01] MEDS ORDERED: AMPICILLIN/SULBACTAM 3 GM in SODIUM CHLORIDE 0.9% 100 ML IV ONE (18:00)
[2021-05-01] MEDS ORDERED: VANCOMYCIN PER PHARMACY MC ONE (18:00)
[2021-05-01] MEDS ORDERED: SODIUM CHLORIDE 0.9% 1,000ML IVBOLUS ONE (18:00)
[2021-05-01] MEDS ORDERED: MORPHINE SULFATE 4 MG/ML, 1ML ONE (18:04)
[2021-05-01] MEDS ORDERED: ONDANSETRON 2MG/ML, 2ML ONE ×2 (18:04→20:40)
[2021-05-01] MEDS ORDERED: METF500T17 PO ×2 (18:11→18:18)
[2021-05-01] MEDS ORDERED: LISI5TAB7 PO (18:15)
[2021-05-01] MEDS ORDERED: SITA100T PO (18:18)
--- NOTE | 2021-05-01 18:24 | NUR ---
LAB IN ROOM
--- NOTE | 2021-05-01 18:25 | NUR ---
MED REC UPDATED WITH PATIENT
[2021-05-01] MEDS ORDERED: VANCOMYCIN 2,300 MG in SODIUM CHLORIDE 0.9% 500 ML IV ONE (18:30)
[2021-05-01] MEDS ORDERED: LIDOCAINE-MPF 1%, 5ML INFIL ONE (18:30)
--- NOTE | 2021-05-01 18:33 | NUR ---
BOTH BLOOD CULTURES DRAWN BEFORE ABX GIVEN
[2021-05-01 18:42] LABS: BASOPHILS % (AUTO) 1 % (0-1); EOSINOPHILS % (AUTO) 1 % (1-7); LYMPHOCYTES % (AUTO) 8 % (22-44); MEAN CORPUSCULAR HEMOGLOBIN 28.2 pg (27.5-34.5); MEAN CORPUSCULAR HGB CONC 33.4 g/dL (33.2-36.2); MEAN PLATELET VOLUME 7.7 fL (7.4-10.4); MONOCYTES % (AUTO) 7 % (2-9); NEUTROPHILS % (AUTO) 84 % (42-75); PLATELET COUNT 523 x10^3/uL (130-400); RED BLOOD COUNT 4.64 x10^6/uL (4.38-5.82); RED CELL DISTRIBUTION WIDTH 14.4 % (9.4-14.8)
[2021-05-01 18:52] LABS: ALANINE AMINOTRANSFERASE 22 U/L (12-78); ALBUMIN 2.7 g/dL (3.4-5.0); ANION GAP 4 mmol/L (5-15); CALCIUM 9.9 mg/dL (8.5-10.1); CHLORIDE 101 mmol/L (98-107); CREATININE 1.06 mg/dL (0.7-1.3)
[2021-05-01 18:54] LABS: ALKALINE PHOSPHATASE 132 U/L (45-117); BILIRUBIN,TOTAL 0.3 mg/dL (0.2-1.0); TOTAL PROTEIN 7.9 g/dL (6.4-8.2)
[2021-05-01] MEDS ORDERED: LIDOCAINE-MPF 1%, 5ML ONE (19:40)
--- NOTE | 2021-05-01 19:53 | NUR ---
OSMAR PERSON IN ROOM DOING I&D
[2021-05-01] MEDS ORDERED: PROPOFOL 10 MG/ML, 20ML IVPush ONE ×2 (20:00→23:00)
[2021-05-01] MEDS ORDERED: PROPOFOL 10 MG/ML, 20ML ONE (20:40)
--- NOTE | 2021-05-01 21:09 | NUR ---
I&D DONE WITH SEDATION. DR RAMÍREZ GAVE PT 150 MG OF PROPOFL. PT TOLERATED PROCEDURE WELL. NO ACUTE DISTRESS NOTED. PT ALERT AND TALKING. VS STABLE. PRETZEL TWISTING MACHINE OPERATOR ON. PULSE OX ON. WILL CONTINUE TO MONITOR.
--- NOTE | 2021-05-01 21:26 | NUR ---
PT WATCHING TV IN ROOM. VS STABLE. SNOW REMOVING SUPERVISOR ON. CALL LIGHT IN PLACE. WILL CONTINUE TO MONITOR.
--- NOTE | 2021-05-01 21:37 | NUR ---
PT RESTING IN ROOM. NO ACUTE DISTRESS NOTED. VS STABLE. CALL LIGHT IN PLACE. WILL CONTINUE TO MONITOR.
--- NOTE | 2021-05-01 22:15 | NUR ---
hospitalist in room
[2021-05-01] MEDS ORDERED: ACETAMINOPHEN 325 MG TABLET PO PRN (22:30)
[2021-05-01] MEDS ORDERED: OXYcodone IR 5MG TABLET PO PRN (22:30)
[2021-05-01] MEDS ORDERED: BISACODYL 10 MG SUPP PR PRN (22:30)
[2021-05-01] MEDS ORDERED: VANCOMYCIN PER PHARMACY MC PRN (22:30)
[2021-05-01] MEDS ORDERED: TEMAZEPAM 15 MG CAPSULE PO PRN (22:30)
[2021-05-01] MEDS ORDERED: LORazepam 2 MG/ML, 1ML IVPush PRN (22:30)
[2021-05-01] MEDS ORDERED: ONDANSETRON 2MG/ML, 2ML IVPush PRN (22:30)
[2021-05-01] MEDS ORDERED: PHARMACOKINETIC MONITORING MC PRN (23:00)
[2021-05-01] MEDS ORDERED: PHARMACOKINETIC CONSULTATION MC ONE (23:00)
[2021-05-01] MEDS: PIPERACILLIN/TAZO 3.375 GM in DEXTROSE 5% 50 ML IVPB SCH (23:51)
[2021-05-01] MEDS: SODIUM CHLORIDE 0.9% 1,000 ML IV SCH (23:51)
[2021-05-02 01:06] VITALS: BP 129/78
[2021-05-02] MEDS: metFORMIN 500 MG TABLET PO SCH ×2 (01:15→08:24)
[2021-05-02] MEDS: INSULIN LISPRO 100 UNITS/ML, PEN SQ-INSULIN SCH ×5 (01:25→20:20)
[2021-05-02 03:01] VITALS: BP 129/78
[2021-05-02 06:01] LABS: BASOPHILS % (AUTO) 1 % (0-1); EOSINOPHILS % (AUTO) 1 % (1-7); LYMPHOCYTES % (AUTO) 11 % (22-44); MEAN CORPUSCULAR HEMOGLOBIN 28.1 pg (27.5-34.5); MEAN CORPUSCULAR HGB CONC 33.5 g/dL (33.2-36.2); MEAN PLATELET VOLUME 7.9 fL (7.4-10.4); MONOCYTES % (AUTO) 7 % (2-9); NEUTROPHILS % (AUTO) 80 % (42-75); PLATELET COUNT 449 x10^3/uL (130-400); RED BLOOD COUNT 4.22 x10^6/uL (4.38-5.82); RED CELL DISTRIBUTION WIDTH 14.1 % (9.4-14.8)
[2021-05-02 06:14] LABS: CHLORIDE 106 mmol/L (98-107)
[2021-05-02 06:28] LABS: ANION GAP 6 mmol/L (5-15); CALCIUM 8.9 mg/dL (8.5-10.1); CREATININE 0.81 mg/dL (0.7-1.3)
[2021-05-02] MEDS ORDERED: MAGNESIUM SULFATE PMX 2GM/50ML 50 ML IV ONE (07:30)
[2021-05-02 07:40] VITALS: BP 121/78
[2021-05-02] MEDS: PIPERACILLIN/TAZO 3.375 GM in DEXTROSE 5% 50 ML IVPB SCH ×3 (08:20→16:10)
[2021-05-02] MEDS: K-PHOS NEUTRAL 250MG TAB PO SCH ×3 (08:23→19:59)
[2021-05-02] MEDS: SODIUM CHLORIDE 0.9% 1,000 ML IV SCH (08:23)
[2021-05-02] MEDS: FAMOTIDINE 20 MG TABLET PO SCH ×2 (08:23→19:58)
[2021-05-02] MEDS: LISINOPRIL 5 MG TABLET PO SCH (08:24)
[2021-05-02] MEDS: ENOXAPARIN 40 MG/0.4 ML SQ SCH (08:25)
[2021-05-02] MEDS ORDERED: LINAGLIPTIN 5 MG TAB PO SCH (09:00)
[2021-05-02] MEDS: VANCOMYCIN 1,800 MG in SODIUM CHLORIDE 0.9% 250 ML IV SCH ×2 (09:14→20:20)
[2021-05-02 14:28] VITALS: BP 118/74
[2021-05-02] MEDS ORDERED: MIDAZOLAM 1 MG/ML, 2ML ONE (15:40)
[2021-05-02] MEDS ORDERED: FENTANYL PF 250 MCG/5ML ONE (15:40)
[2021-05-02] MEDS ORDERED: MEPERIDINE/PF 25MG/0.5ML IVPush PRN (16:00)
[2021-05-02] MEDS ORDERED: LABETALOL 5MG/ML, 20ML IV PRN (16:00)
[2021-05-02] MEDS ORDERED: HYDROmorphone 1 MG/ML, 1ML INJ IVPush PRN (16:00)
[2021-05-02] MEDS ORDERED: hydrALAzine 20 MG/ML, 1ML IV PRN (16:00)
[2021-05-02] MEDS ORDERED: HALOPERIDOL 5 MG/ML IV PRN (16:00)
[2021-05-02] MEDS ORDERED: PROMETHAZINE 25 MG/ML, 1ML IVPush PRN (16:00)
[2021-05-02] MEDS ORDERED: DIPHENHYDRAMINE 50 MG/ML, 1ML IVPush PRN (16:00)
[2021-05-02] MEDS ORDERED: FENTANYL PF 100 MCG/2ML IV PRN (16:00)
[2021-05-02] MEDS ORDERED: OXYcodone 5 MG/5 ML ORAL.SOL UDC PO PRN (16:00)
[2021-05-02] MEDS ORDERED: DEXAMETHASONE 4 MG/ML, 1ML ONE (16:27)
[2021-05-02] MEDS ORDERED: ONDANSETRON 2MG/ML, 2ML ONE (16:27)
[2021-05-02] MEDS ORDERED: PROPOFOL 10 MG/ML, 20ML ONE (16:27)
[2021-05-02] MEDS ORDERED: CEFAZOLIN 1,000 MG ONE (16:27)
[2021-05-02 19:17] VITALS: BP 99/62
[2021-05-02] MEDS: INSULIN GLARGINE 100 UNITS/ML, PEN SQ-INSULIN SCH (22:24)
[2021-05-03] MEDS: PIPERACILLIN/TAZO 3.375 GM in DEXTROSE 5% 50 ML IVPB SCH ×2 (00:07→07:38)
[2021-05-03 01:09] VITALS: BP 125/76
[2021-05-03] MEDS: INSULIN LISPRO 100 UNITS/ML, PEN SQ-INSULIN SCH ×4 (07:38→21:24)
[2021-05-03] MEDS: FAMOTIDINE 20 MG TABLET PO SCH ×2 (07:38→21:23)
[2021-05-03] MEDS: LISINOPRIL 5 MG TABLET PO SCH (07:39)
[2021-05-03] MEDS: INSULIN GLARGINE 100 UNITS/ML, PEN SQ-INSULIN SCH ×2 (07:39→21:24)
[2021-05-03] MEDS: ENOXAPARIN 40 MG/0.4 ML SQ SCH (07:39)
[2021-05-03 07:52] VITALS: BP 107/69
[2021-05-03] MEDS: VANCOMYCIN 1,800 MG in SODIUM CHLORIDE 0.9% 250 ML IV SCH (08:22)
[2021-05-03 09:18] LABS: BASOPHILS % (AUTO) 1 % (0-1); EOSINOPHILS % (AUTO) 2 % (1-7); LYMPHOCYTES % (AUTO) 12 % (22-44); MEAN CORPUSCULAR HEMOGLOBIN 28.4 pg (27.5-34.5); MEAN CORPUSCULAR HGB CONC 33.8 g/dL (33.2-36.2); MEAN PLATELET VOLUME 7.9 fL (7.4-10.4); MONOCYTES % (AUTO) 8 % (2-9); NEUTROPHILS % (AUTO) 77 % (42-75); PLATELET COUNT 408 x10^3/uL (130-400); RED BLOOD COUNT 4.08 x10^6/uL (4.38-5.82); RED CELL DISTRIBUTION WIDTH 14.3 % (9.4-14.8)
[2021-05-03 09:25] LABS: ANION GAP 7 mmol/L (5-15); CALCIUM 9.6 mg/dL (8.5-10.1); CHLORIDE 108 mmol/L (98-107)
[2021-05-03] MEDS ORDERED: SODIUM CHLORIDE 0.9% 1,000ML IVBOLUS ONE (10:00)
[2021-05-03] MEDS: ESCITALOPRAM 10MG TABLET PO SCH (10:37)
[2021-05-03] MEDS: CEFTAROLINE 400 MG in SODIUM CHLORIDE 0.9% 100 ML IV SCH ×2 (10:37→21:31)
[2021-05-03 13:03] VITALS: BP 138/81
[2021-05-03 20:05] VITALS: BP 143/82
[2021-05-04 01:25] VITALS: BP 151/88
[2021-05-04 05:28] LABS: BASOPHILS % (AUTO) 1 % (0-1); EOSINOPHILS % (AUTO) 5 % (1-7); LYMPHOCYTES % (AUTO) 10 % (22-44); MEAN CORPUSCULAR HEMOGLOBIN 28.2 pg (27.5-34.5); MEAN CORPUSCULAR HGB CONC 33.2 g/dL (33.2-36.2); MEAN PLATELET VOLUME 7.9 fL (7.4-10.4); MONOCYTES % (AUTO) 7 % (2-9); NEUTROPHILS % (AUTO) 78 % (42-75); PLATELET COUNT 497 x10^3/uL (130-400); RED BLOOD COUNT 4.28 x10^6/uL (4.38-5.82); RED CELL DISTRIBUTION WIDTH 14.2 % (9.4-14.8)
[2021-05-04 05:39] LABS: ANION GAP 4 mmol/L (5-15); CHLORIDE 112 mmol/L (98-107); CREATININE 2.26 mg/dL (0.7-1.3)
[2021-05-04] MEDS ORDERED: SODIUM CHLORIDE 0.9% 1,000ML IVBOLUS ONE (06:30)
[2021-05-04 06:58] VITALS: BP 151/87
[2021-05-04] MEDS: INSULIN LISPRO 100 UNITS/ML, PEN SQ-INSULIN SCH ×4 (07:10→22:03)
[2021-05-04] MEDS ORDERED: ENOXAPARIN 40 MG/0.4 ML SQ SCH (09:00)
[2021-05-04] MEDS: INSULIN GLARGINE 100 UNITS/ML, PEN SQ-INSULIN SCH ×2 (09:42→22:03)
[2021-05-04] MEDS: FAMOTIDINE 20 MG TABLET PO SCH (09:42)
[2021-05-04] MEDS: ESCITALOPRAM 10MG TABLET PO SCH (09:42)
[2021-05-04] MEDS: CEFTAROLINE 400 MG in SODIUM CHLORIDE 0.9% 100 ML IV SCH ×2 (11:57→23:27)
[2021-05-04] MEDS: AMLODIPINE 5 MG TABLET PO SCH (11:59)
[2021-05-04] MEDS: DOCUSATE 100 MG CAPSULE PO PRN (14:01)
[2021-05-04] MEDS: POLYETHYLENE GLYCOL 17 GM PACKET PO PRN (14:02)
[2021-05-04 14:23] VITALS: BP 137/77
[2021-05-04 20:05] VITALS: BP 165/89
[2021-05-04 20:39] LABS: MICROSCOPIC NOT IND
[2021-05-04 20:48] LABS: CREATININE,URINE RANDOM 51.4 mg/dL
[2021-05-05 02:24] VITALS: BP 155/94
[2021-05-05 05:56] LABS: ANION GAP 6 mmol/L (5-15); CALCIUM 9.7 mg/dL (8.5-10.1); CHLORIDE 113 mmol/L (98-107)
[2021-05-05 05:57] LABS: CREATININE 2.23 mg/dL (0.7-1.3)
[2021-05-05] MEDS: INSULIN LISPRO 100 UNITS/ML, PEN SQ-INSULIN SCH ×4 (06:53→22:09)
[2021-05-05] MEDS: POLYETHYLENE GLYCOL 17 GM PACKET PO PRN (08:13)
[2021-05-05] MEDS: ESCITALOPRAM 10MG TABLET PO SCH (08:13)
[2021-05-05] MEDS: FAMOTIDINE 20 MG TABLET PO SCH (08:13)
[2021-05-05] MEDS: DOCUSATE 100 MG CAPSULE PO PRN (08:13)
[2021-05-05] MEDS: AMLODIPINE 5 MG TABLET PO SCH (08:13)
[2021-05-05] MEDS: ENOXAPARIN 40 MG/0.4 ML SQ SCH (08:14)
[2021-05-05] MEDS: INSULIN GLARGINE 100 UNITS/ML, PEN SQ-INSULIN SCH ×2 (08:21→21:31)
[2021-05-05 09:57] VITALS: BP 147/88
[2021-05-05 12:26] VITALS: BP 166/85
[2021-05-05] MEDS: CEFTAROLINE 400 MG in SODIUM CHLORIDE 0.9% 100 ML IV SCH (12:57)
[2021-05-05 21:17] VITALS: BP 174/94
[2021-05-05] MEDS: hydrALAzine 20 MG/ML, 1ML IVPush PRN (21:29)
[2021-05-05 22:12] VITALS: BP 164/86
[2021-05-06] VITALS (8 sets, daily range): BP systolic 150–177; BP diastolic 84–98
[2021-05-06] MEDS: CEFTAROLINE 400 MG in SODIUM CHLORIDE 0.9% 100 ML IV SCH
[2021-05-06] MEDS: hydrALAzine 20 MG/ML, 1ML IVPush PRN (01:55)
[2021-05-06] MEDS ORDERED: LABETALOL 5MG/ML, 20ML IVPush PRN ×2 (02:50→08:00)
[2021-05-06 05:45] LABS: BASOPHILS % (AUTO) 1 % (0-1); EOSINOPHILS % (AUTO) 8 % (1-7); LYMPHOCYTES % (AUTO) 11 % (22-44); MEAN CORPUSCULAR HEMOGLOBIN 28.3 pg (27.5-34.5); MEAN CORPUSCULAR HGB CONC 33.4 g/dL (33.2-36.2); MEAN PLATELET VOLUME 7.8 fL (7.4-10.4); MONOCYTES % (AUTO) 7 % (2-9); NEUTROPHILS % (AUTO) 74 % (42-75); PLATELET COUNT 531 x10^3/uL (130-400); RED BLOOD COUNT 4.61 x10^6/uL (4.38-5.82)
[2021-05-06 05:54] LABS: ANION GAP 8 mmol/L (5-15); CALCIUM 9.7 mg/dL (8.5-10.1); CHLORIDE 110 mmol/L (98-107)
[2021-05-06 05:57] LABS: CREATININE 2.21 mg/dL (0.7-1.3)
[2021-05-06] MEDS ORDERED: SODIUM CHLORIDE 0.9% 1,000ML IVBOLUS ONE (08:00)
[2021-05-06] MEDS: INSULIN LISPRO 100 UNITS/ML, PEN SQ-INSULIN SCH ×4 (08:35→21:00)
[2021-05-06] MEDS: INSULIN GLARGINE 100 UNITS/ML, PEN SQ-INSULIN SCH ×2 (08:35→21:13)
[2021-05-06] MEDS: AMLODIPINE 5 MG TABLET PO SCH ×2 (08:36→21:12)
[2021-05-06] MEDS: FAMOTIDINE 20 MG TABLET PO SCH (08:36)
[2021-05-06] MEDS: ENOXAPARIN 40 MG/0.4 ML SQ SCH (08:36)
[2021-05-06] MEDS: ESCITALOPRAM 10MG TABLET PO SCH (08:36)
[2021-05-06] MEDS: POLYETHYLENE GLYCOL 17 GM PACKET PO PRN (08:39)
[2021-05-06] MEDS: DAPTOMYCIN 550 MG in SODIUM CHLORIDE 0.9% 100 ML IVPB SCH (13:28)
[2021-05-07 00:58] VITALS: BP 176/90
[2021-05-07] MEDS: hydrALAzine 20 MG/ML, 1ML IVPush PRN (01:06)
[2021-05-07] MEDS: INSULIN LISPRO 100 UNITS/ML, PEN SQ-INSULIN SCH ×4 (07:00→20:36)
[2021-05-07 07:08] VITALS: BP 161/89
[2021-05-07 07:50] LABS: ANION GAP 8 mmol/L (5-15); CALCIUM 9.6 mg/dL (8.5-10.1); CHLORIDE 114 mmol/L (98-107)
[2021-05-07] MEDS: AMLODIPINE 5 MG TABLET PO SCH ×2 (08:01→20:25)
[2021-05-07] MEDS: FAMOTIDINE 20 MG TABLET PO SCH (08:01)
[2021-05-07] MEDS: ESCITALOPRAM 10MG TABLET PO SCH (08:01)
[2021-05-07] MEDS: ENOXAPARIN 40 MG/0.4 ML SQ SCH (08:02)
[2021-05-07] MEDS: INSULIN GLARGINE 100 UNITS/ML, PEN SQ-INSULIN SCH ×2 (08:02→20:35)
[2021-05-07 12:02] VITALS: BP 153/84
[2021-05-07] MEDS: DAPTOMYCIN 550 MG in SODIUM CHLORIDE 0.9% 100 ML IVPB SCH (14:30)
[2021-05-07 20:21] VITALS: BP 157/85
[2021-05-08 01:51] VITALS: BP 154/83
[2021-05-08 04:27] LABS: BASOPHILS % (AUTO) 0 % (0-1); EOSINOPHILS % (AUTO) 13 % (1-7); LYMPHOCYTES % (AUTO) 13 % (22-44); MEAN CORPUSCULAR HEMOGLOBIN 28.2 pg (27.5-34.5); MEAN CORPUSCULAR HGB CONC 33.3 g/dL (33.2-36.2); MEAN PLATELET VOLUME 7.5 fL (7.4-10.4); MONOCYTES % (AUTO) 6 % (2-9); NEUTROPHILS % (AUTO) 69 % (42-75); PLATELET COUNT 468 x10^3/uL (130-400); RED BLOOD COUNT 4.51 x10^6/uL (4.38-5.82); RED CELL DISTRIBUTION WIDTH 14.1 % (9.4-14.8)
[2021-05-08 04:31] LABS: ANION GAP 7 mmol/L (5-15); CHLORIDE 110 mmol/L (98-107); CREATININE 2.35 mg/dL (0.7-1.3)
[2021-05-08] MEDS: INSULIN LISPRO 100 UNITS/ML, PEN SQ-INSULIN SCH ×4 (07:00→20:24)
[2021-05-08 07:35] VITALS: BP 153/90
[2021-05-08] MEDS: ESCITALOPRAM 10MG TABLET PO SCH (08:32)
[2021-05-08] MEDS: AMLODIPINE 5 MG TABLET PO SCH ×2 (08:32→20:23)
[2021-05-08] MEDS: FAMOTIDINE 20 MG TABLET PO SCH (08:32)
[2021-05-08] MEDS: ENOXAPARIN 40 MG/0.4 ML SQ SCH (08:33)
[2021-05-08] MEDS: INSULIN GLARGINE 100 UNITS/ML, PEN SQ-INSULIN SCH ×2 (08:34→20:25)
[2021-05-08] MEDS: DAPTOMYCIN 550 MG in SODIUM CHLORIDE 0.9% 100 ML IVPB SCH (13:34)
[2021-05-08 13:48] VITALS: BP 129/71
[2021-05-08 19:01] VITALS: BP 148/86
[2021-05-08] MEDS: MELATONIN 5 MG TABLET PO PRN (20:25)
[2021-05-09 02:10] VITALS: BP 157/88
[2021-05-09 05:18] LABS: BASOPHILS % (AUTO) 1 % (0-1); EOSINOPHILS % (AUTO) 15 % (1-7); LYMPHOCYTES % (AUTO) 17 % (22-44); MEAN CORPUSCULAR HEMOGLOBIN 28.4 pg (27.5-34.5); MEAN CORPUSCULAR HGB CONC 33.8 g/dL (33.2-36.2); MEAN PLATELET VOLUME 7.5 fL (7.4-10.4); MONOCYTES % (AUTO) 7 % (2-9); NEUTROPHILS % (AUTO) 61 % (42-75); PLATELET COUNT 456 x10^3/uL (130-400); RED BLOOD COUNT 4.41 x10^6/uL (4.38-5.82); RED CELL DISTRIBUTION WIDTH 13.9 % (9.4-14.8)
[2021-05-09 05:23] LABS: ANION GAP 5 mmol/L (5-15); CALCIUM 9.6 mg/dL (8.5-10.1); CHLORIDE 110 mmol/L (98-107); CREATININE 2.35 mg/dL (0.7-1.3)
[2021-05-09 06:50] VITALS: BP 144/75
[2021-05-09] MEDS: AMLODIPINE 5 MG TABLET PO SCH ×2 (08:29→21:33)
[2021-05-09] MEDS: ESCITALOPRAM 10MG TABLET PO SCH (08:29)
[2021-05-09] MEDS: FAMOTIDINE 20 MG TABLET PO SCH (08:29)
[2021-05-09] MEDS: INSULIN LISPRO 100 UNITS/ML, PEN SQ-INSULIN SCH ×4 (08:29→21:35)
[2021-05-09] MEDS: INSULIN GLARGINE 100 UNITS/ML, PEN SQ-INSULIN SCH ×2 (08:30→21:35)
[2021-05-09] MEDS: ENOXAPARIN 40 MG/0.4 ML SQ SCH (08:31)
[2021-05-09] MEDS: DAPTOMYCIN 550 MG in SODIUM CHLORIDE 0.9% 100 ML IVPB SCH (12:51)
[2021-05-09 14:28] VITALS: BP 130/76
[2021-05-09 19:08] VITALS: BP 154/79
[2021-05-09] MEDS: MELATONIN 5 MG TABLET PO PRN (21:35)
[2021-05-10 03:15] VITALS: BP 145/86
[2021-05-10 06:51] VITALS: BP 146/87
[2021-05-10] MEDS: INSULIN LISPRO 100 UNITS/ML, PEN SQ-INSULIN SCH ×2 (07:42→11:50)
[2021-05-10] MEDS: AMLODIPINE 5 MG TABLET PO SCH (08:03)
[2021-05-10] MEDS: ESCITALOPRAM 10MG TABLET PO SCH (08:03)
[2021-05-10] MEDS: ENOXAPARIN 40 MG/0.4 ML SQ SCH (08:03)
[2021-05-10] MEDS: FAMOTIDINE 20 MG TABLET PO SCH (08:03)
[2021-05-10] MEDS: INSULIN GLARGINE 100 UNITS/ML, PEN SQ-INSULIN SCH (08:04)
[2021-05-10 08:18] LABS: ALBUMIN 2.6 g/dL (3.4-5.0); ANION GAP 6 mmol/L (5-15); CALCIUM 9.3 mg/dL (8.5-10.1); CHLORIDE 110 mmol/L (98-107); CREATININE 2.17 mg/dL (0.7-1.3)
[2021-05-10] MEDS ORDERED: DAPT500V6 IV (11:27)
[2021-05-10] MEDS ORDERED: ESCI10TA97 PO (11:27)
[2021-05-10] MEDS ORDERED: INSU100I13 SQ-INSULIN (11:27)
[2021-05-10] MEDS ORDERED: FAMO20TA7 PO (11:27)
[2021-05-10] MEDS ORDERED: AMLO-150 PO (11:27)
[2021-05-10] MEDS ORDERED: INSU100I11 SQ-INSULIN (11:27)
[2021-05-10] MEDS: DAPTOMYCIN 550 MG in SODIUM CHLORIDE 0.9% 100 ML IVPB SCH (12:29)
== END 2021-05-10 14:00 | disposition home or self-care (01) | DRG 853 ==
LOC: ED 17:42 → EDIP 21:48 → 3N 22:47
PROVIDERS: ADMIT Internal Medicine; ATTEND Internal Medicine
PROC: 0J9L0ZZ Drainage of Right Upper Leg Subcutaneous Tissue and Fascia, Open Approach (ICD-10-PCS; principal; 2021-05-01)
PROC: 02HV33Z Insertion of Infusion Device into Superior Vena Cava, Percutaneous Approach (ICD-10-PCS; 2021-05-06)
PROC: B548ZZA Ultrasonography of Superior Vena Cava, Guidance (ICD-10-PCS; 2021-05-06)
PROC: B5181ZA Fluoroscopy of Superior Vena Cava using Low Osmolar Contrast, Guidance (ICD-10-PCS; 2021-05-06)
DX: A41.9 Sepsis, unspecified organism (principal); N17.0 Acute kidney failure with tubular necrosis; I50.32 Chronic diastolic (congestive) heart failure; L02.415 Cutaneous abscess of right lower limb; L03.115 Cellulitis of right lower limb; E87.1 Hypo-osmolality and hyponatremia; D63.8 Anemia in other chronic diseases classified elsewhere; E11.65 Type 2 diabetes mellitus with hyperglycemia; F32.9 Major depressive disorder, single episode, unspecified; I11.0 Hypertensive heart disease with heart failure; M60.9 Myositis, unspecified; Z83.3 Family history of diabetes mellitus; Z86.14 Personal history of Methicillin resistant Staphylococcus aureus infection; Z20.822 Contact with and (suspected) exposure to COVID-19
CPT/HCPCS: 36415; 36573; 76770; 80048; 80053; 80069; 81003; 82550; 82570; 82962; 83036; 83605; 83735; 84100; 84145; 84156; 84300; 85025; 87040; 87070; 87075; 87205; 87635; 96374; 96375; 99285; G0378; J0295; J0690; J0712; J0878; J1100; J1650; J2250; J2405; J2543; J2704; J3010; J3370; C1751; J0360; J1815; J2270; J3475; J7030; J7040; J7050

== ENCOUNTER 2021-05-13 13:35 | Outpatient (CLI) | payer MEDICAID ==
[~2021-05-13 13:35] MED LIST changes: +AMLO-150 PO; +DAPT500V6 IV; +ESCI10TA97 PO; +FAMO20TA7 PO; +LISI5TAB7 PO; +METF500T17 PO; +SITA100T PO
== END 2021-05-13 23:59 | disposition home or self-care (01) ==
LOC: WOUND 13:35
PROVIDERS: ATTEND Internal Medicine Cardiovascular Disease
DX: E11.622 Type 2 diabetes mellitus with other skin ulcer (principal); L97.212 Non-pressure chronic ulcer of right calf with fat layer exposed; L97.815 Non-pressure chronic ulcer of other part of right lower leg with muscle involvement without evidence of necrosis; S81.801D Unspecified open wound, right lower leg, subsequent encounter; L03.115 Cellulitis of right lower limb; M72.6 Necrotizing fasciitis; B95.62 Methicillin resistant Staphylococcus aureus infection as the cause of diseases classified elsewhere; E11.52 Type 2 diabetes mellitus with diabetic peripheral angiopathy with gangrene; I96 Gangrene, not elsewhere classified; M16.0 Bilateral primary osteoarthritis of hip; I11.0 Hypertensive heart disease with heart failure; I50.32 Chronic diastolic (congestive) heart failure; D63.8 Anemia in other chronic diseases classified elsewhere; E78.5 Hyperlipidemia, unspecified; E11.610 Type 2 diabetes mellitus with diabetic neuropathic arthropathy; F32.9 Major depressive disorder, single episode, unspecified; F17.200 Nicotine dependence, unspecified, uncomplicated; F12.90 Cannabis use, unspecified, uncomplicated; I77.1 Stricture of artery; Z86.14 Personal history of Methicillin resistant Staphylococcus aureus infection; Z79.4 Long term (current) use of insulin; Z79.899 Other long term (current) drug therapy; Z20.822 Contact with and (suspected) exposure to COVID-19; X58.XXXD Exposure to other specified factors, subsequent encounter
CPT/HCPCS: 99213; 99215

== ENCOUNTER → 2021-05-15 | Outpatient (CLI) | payer MEDICAID | END | disposition home or self-care (01) | LOC: WOUND 09:17 | PROVIDERS: ATTEND Internal Medicine | DX: E11.622 Type 2 diabetes mellitus with other skin ulcer (principal); L97.815 Non-pressure chronic ulcer of other part of right lower leg with muscle involvement without evidence of necrosis; L97.212 Non-pressure chronic ulcer of right calf with fat layer exposed; L03.115 Cellulitis of right lower limb; S81.801D Unspecified open wound, right lower leg, subsequent encounter; B95.62 Methicillin resistant Staphylococcus aureus infection as the cause of diseases classified elsewhere; E11.65 Type 2 diabetes mellitus with hyperglycemia; L84 Corns and callosities; D63.8 Anemia in other chronic diseases classified elsewhere; I11.0 Hypertensive heart disease with heart failure; I50.32 Chronic diastolic (congestive) heart failure; M16.0 Bilateral primary osteoarthritis of hip; E78.5 Hyperlipidemia, unspecified; F32.9 Major depressive disorder, single episode, unspecified; Z79.4 Long term (current) use of insulin; Z87.891 Personal history of nicotine dependence; X58.XXXD Exposure to other specified factors, subsequent encounter | CPT/HCPCS: 11043 ==

== ENCOUNTER 2021-05-22 09:05 | Outpatient (CLI) | payer MEDICAID | END 2021-05-22 23:59 | disposition home or self-care (01) | LOC: WOUND 09:05 | PROVIDERS: ATTEND Internal Medicine | DX: E11.622 Type 2 diabetes mellitus with other skin ulcer (principal); L97.815 Non-pressure chronic ulcer of other part of right lower leg with muscle involvement without evidence of necrosis; E11.52 Type 2 diabetes mellitus with diabetic peripheral angiopathy with gangrene; I96 Gangrene, not elsewhere classified; L03.115 Cellulitis of right lower limb; M72.6 Necrotizing fasciitis; L02.415 Cutaneous abscess of right lower limb; M16.0 Bilateral primary osteoarthritis of hip; I11.0 Hypertensive heart disease with heart failure; I50.32 Chronic diastolic (congestive) heart failure; D63.8 Anemia in other chronic diseases classified elsewhere; E78.5 Hyperlipidemia, unspecified; E11.610 Type 2 diabetes mellitus with diabetic neuropathic arthropathy; F32.9 Major depressive disorder, single episode, unspecified; F17.200 Nicotine dependence, unspecified, uncomplicated; Z86.14 Personal history of Methicillin resistant Staphylococcus aureus infection; Z79.4 Long term (current) use of insulin; Z79.899 Other long term (current) drug therapy | CPT/HCPCS: 11042; 11045; 97597; 97598 ==

== ENCOUNTER → 2021-05-29 | Outpatient (CLI) | payer MEDICAID | END | disposition home or self-care (01) | LOC: WOUND 10:00 | PROVIDERS: ATTEND Internal Medicine Cardiovascular Disease | DX: E11.622 Type 2 diabetes mellitus with other skin ulcer (principal); L97.815 Non-pressure chronic ulcer of other part of right lower leg with muscle involvement without evidence of necrosis; L97.212 Non-pressure chronic ulcer of right calf with fat layer exposed; S81.801D Unspecified open wound, right lower leg, subsequent encounter; L03.115 Cellulitis of right lower limb; M72.6 Necrotizing fasciitis; B95.62 Methicillin resistant Staphylococcus aureus infection as the cause of diseases classified elsewhere; E11.52 Type 2 diabetes mellitus with diabetic peripheral angiopathy with gangrene; I96 Gangrene, not elsewhere classified; M16.0 Bilateral primary osteoarthritis of hip; I11.0 Hypertensive heart disease with heart failure; I50.32 Chronic diastolic (congestive) heart failure; D63.8 Anemia in other chronic diseases classified elsewhere; E78.5 Hyperlipidemia, unspecified; E11.610 Type 2 diabetes mellitus with diabetic neuropathic arthropathy; F32.9 Major depressive disorder, single episode, unspecified; F17.200 Nicotine dependence, unspecified, uncomplicated; F12.90 Cannabis use, unspecified, uncomplicated; I77.1 Stricture of artery; Z86.14 Personal history of Methicillin resistant Staphylococcus aureus infection; Z79.4 Long term (current) use of insulin; Z79.899 Other long term (current) drug therapy; Z20.822 Contact with and (suspected) exposure to COVID-19; X58.XXXD Exposure to other specified factors, subsequent encounter | CPT/HCPCS: 99213 ==

== ENCOUNTER 2021-06-05 08:46 | Outpatient (CLI) | payer MEDICAID | END 2021-06-05 23:59 | disposition home or self-care (01) | LOC: WOUND 08:46 | PROVIDERS: ATTEND Internal Medicine | DX: E11.622 Type 2 diabetes mellitus with other skin ulcer (principal); L97.815 Non-pressure chronic ulcer of other part of right lower leg with muscle involvement without evidence of necrosis; L97.212 Non-pressure chronic ulcer of right calf with fat layer exposed; L03.115 Cellulitis of right lower limb; S81.801D Unspecified open wound, right lower leg, subsequent encounter; M72.6 Necrotizing fasciitis; B95.62 Methicillin resistant Staphylococcus aureus infection as the cause of diseases classified elsewhere; E11.52 Type 2 diabetes mellitus with diabetic peripheral angiopathy with gangrene; I96 Gangrene, not elsewhere classified; M16.0 Bilateral primary osteoarthritis of hip; I11.0 Hypertensive heart disease with heart failure; I50.32 Chronic diastolic (congestive) heart failure; D63.8 Anemia in other chronic diseases classified elsewhere; E78.5 Hyperlipidemia, unspecified; E11.610 Type 2 diabetes mellitus with diabetic neuropathic arthropathy; F32.9 Major depressive disorder, single episode, unspecified; F12.90 Cannabis use, unspecified, uncomplicated; I77.1 Stricture of artery; L84 Corns and callosities; Z87.891 Personal history of nicotine dependence; Z79.4 Long term (current) use of insulin; Z79.899 Other long term (current) drug therapy; Z20.822 Contact with and (suspected) exposure to COVID-19; X58.XXXD Exposure to other specified factors, subsequent encounter | CPT/HCPCS: 97597; 97598 ==

== ENCOUNTER 2021-06-12 08:12 | Outpatient (CLI) | payer MEDICAID | END 2021-06-12 23:59 | disposition home or self-care (01) | LOC: WOUND 08:12 | PROVIDERS: ATTEND Internal Medicine | DX: E11.622 Type 2 diabetes mellitus with other skin ulcer (principal); L97.815 Non-pressure chronic ulcer of other part of right lower leg with muscle involvement without evidence of necrosis; L97.212 Non-pressure chronic ulcer of right calf with fat layer exposed; S81.801D Unspecified open wound, right lower leg, subsequent encounter; E11.52 Type 2 diabetes mellitus with diabetic peripheral angiopathy with gangrene; I96 Gangrene, not elsewhere classified; M72.6 Necrotizing fasciitis; L02.415 Cutaneous abscess of right lower limb; L03.115 Cellulitis of right lower limb; B95.62 Methicillin resistant Staphylococcus aureus infection as the cause of diseases classified elsewhere; E11.65 Type 2 diabetes mellitus with hyperglycemia; E11.610 Type 2 diabetes mellitus with diabetic neuropathic arthropathy; D63.8 Anemia in other chronic diseases classified elsewhere; M16.0 Bilateral primary osteoarthritis of hip; E78.5 Hyperlipidemia, unspecified; I11.0 Hypertensive heart disease with heart failure; I50.9 Heart failure, unspecified; F32.9 Major depressive disorder, single episode, unspecified; Z87.891 Personal history of nicotine dependence; Z79.4 Long term (current) use of insulin; X58.XXXD Exposure to other specified factors, subsequent encounter | CPT/HCPCS: 97597; 97598 ==

== ENCOUNTER → 2021-06-19 | Outpatient (CLI) | payer MEDICAID | END | disposition home or self-care (01) | LOC: WOUND 08:03 | PROVIDERS: ATTEND Internal Medicine | DX: E11.622 Type 2 diabetes mellitus with other skin ulcer (principal); L97.815 Non-pressure chronic ulcer of other part of right lower leg with muscle involvement without evidence of necrosis; L97.212 Non-pressure chronic ulcer of right calf with fat layer exposed; S81.801D Unspecified open wound, right lower leg, subsequent encounter; L03.115 Cellulitis of right lower limb; M72.6 Necrotizing fasciitis; B95.62 Methicillin resistant Staphylococcus aureus infection as the cause of diseases classified elsewhere; E11.52 Type 2 diabetes mellitus with diabetic peripheral angiopathy with gangrene; I96 Gangrene, not elsewhere classified; M16.0 Bilateral primary osteoarthritis of hip; I11.0 Hypertensive heart disease with heart failure; I50.32 Chronic diastolic (congestive) heart failure; D63.8 Anemia in other chronic diseases classified elsewhere; E78.5 Hyperlipidemia, unspecified; E11.610 Type 2 diabetes mellitus with diabetic neuropathic arthropathy; F32.9 Major depressive disorder, single episode, unspecified; F17.200 Nicotine dependence, unspecified, uncomplicated; F12.90 Cannabis use, unspecified, uncomplicated; I77.1 Stricture of artery; L84 Corns and callosities; Z86.14 Personal history of Methicillin resistant Staphylococcus aureus infection; Z79.4 Long term (current) use of insulin; Z79.899 Other long term (current) drug therapy; Z20.822 Contact with and (suspected) exposure to COVID-19; X58.XXXD Exposure to other specified factors, subsequent encounter | CPT/HCPCS: 97597; 97598 ==

== ENCOUNTER → 2021-06-29 | Outpatient (CLI) | payer MEDICAID | END | disposition home or self-care (01) | LOC: WOUND 09:32 | PROVIDERS: ATTEND Internal Medicine | DX: E11.622 Type 2 diabetes mellitus with other skin ulcer (principal); L97.815 Non-pressure chronic ulcer of other part of right lower leg with muscle involvement without evidence of necrosis; L97.212 Non-pressure chronic ulcer of right calf with fat layer exposed; S81.801D Unspecified open wound, right lower leg, subsequent encounter; L03.115 Cellulitis of right lower limb; M72.6 Necrotizing fasciitis; B95.62 Methicillin resistant Staphylococcus aureus infection as the cause of diseases classified elsewhere; E11.52 Type 2 diabetes mellitus with diabetic peripheral angiopathy with gangrene; I96 Gangrene, not elsewhere classified; M16.0 Bilateral primary osteoarthritis of hip; I11.0 Hypertensive heart disease with heart failure; I50.32 Chronic diastolic (congestive) heart failure; D63.8 Anemia in other chronic diseases classified elsewhere; E78.5 Hyperlipidemia, unspecified; E11.610 Type 2 diabetes mellitus with diabetic neuropathic arthropathy; F32.9 Major depressive disorder, single episode, unspecified; F12.90 Cannabis use, unspecified, uncomplicated; I77.1 Stricture of artery; L84 Corns and callosities; Z87.891 Personal history of nicotine dependence; Z79.4 Long term (current) use of insulin; Z79.899 Other long term (current) drug therapy; Z20.822 Contact with and (suspected) exposure to COVID-19; X58.XXXD Exposure to other specified factors, subsequent encounter | CPT/HCPCS: 11042; 11045 ==

== ENCOUNTER 2021-07-03 08:24 | Outpatient (CLI) | payer MEDICAID | END 2021-07-03 23:59 | disposition home or self-care (01) | LOC: WOUND 08:24 | PROVIDERS: ATTEND Internal Medicine | DX: E11.622 Type 2 diabetes mellitus with other skin ulcer (principal); L97.815 Non-pressure chronic ulcer of other part of right lower leg with muscle involvement without evidence of necrosis; L97.212 Non-pressure chronic ulcer of right calf with fat layer exposed; S81.801D Unspecified open wound, right lower leg, subsequent encounter; L03.115 Cellulitis of right lower limb; M72.6 Necrotizing fasciitis; B95.62 Methicillin resistant Staphylococcus aureus infection as the cause of diseases classified elsewhere; E11.52 Type 2 diabetes mellitus with diabetic peripheral angiopathy with gangrene; I96 Gangrene, not elsewhere classified; M16.0 Bilateral primary osteoarthritis of hip; I11.0 Hypertensive heart disease with heart failure; I50.32 Chronic diastolic (congestive) heart failure; D63.8 Anemia in other chronic diseases classified elsewhere; E78.5 Hyperlipidemia, unspecified; E11.610 Type 2 diabetes mellitus with diabetic neuropathic arthropathy; F32.9 Major depressive disorder, single episode, unspecified; F12.90 Cannabis use, unspecified, uncomplicated; I77.1 Stricture of artery; L84 Corns and callosities; Z87.891 Personal history of nicotine dependence; Z79.4 Long term (current) use of insulin; Z79.899 Other long term (current) drug therapy; Z20.822 Contact with and (suspected) exposure to COVID-19; X58.XXXD Exposure to other specified factors, subsequent encounter | CPT/HCPCS: 29580 ==

== ENCOUNTER → 2021-07-06 | Outpatient (CLI) | payer MEDICAID | END | disposition home or self-care (01) | LOC: WOUND 09:58 | PROVIDERS: ATTEND Internal Medicine | DX: E11.622 Type 2 diabetes mellitus with other skin ulcer (principal); L97.815 Non-pressure chronic ulcer of other part of right lower leg with muscle involvement without evidence of necrosis; L97.212 Non-pressure chronic ulcer of right calf with fat layer exposed; S81.801D Unspecified open wound, right lower leg, subsequent encounter; L03.115 Cellulitis of right lower limb; M72.6 Necrotizing fasciitis; B95.62 Methicillin resistant Staphylococcus aureus infection as the cause of diseases classified elsewhere; E11.52 Type 2 diabetes mellitus with diabetic peripheral angiopathy with gangrene; I96 Gangrene, not elsewhere classified; M16.0 Bilateral primary osteoarthritis of hip; I11.0 Hypertensive heart disease with heart failure; I50.32 Chronic diastolic (congestive) heart failure; D63.8 Anemia in other chronic diseases classified elsewhere; E78.5 Hyperlipidemia, unspecified; E11.610 Type 2 diabetes mellitus with diabetic neuropathic arthropathy; F32.9 Major depressive disorder, single episode, unspecified; F12.90 Cannabis use, unspecified, uncomplicated; I77.1 Stricture of artery; L84 Corns and callosities; Z87.891 Personal history of nicotine dependence; Z79.4 Long term (current) use of insulin; Z79.899 Other long term (current) drug therapy; Z20.822 Contact with and (suspected) exposure to COVID-19; X58.XXXD Exposure to other specified factors, subsequent encounter | CPT/HCPCS: 97597; 97598 ==

== ENCOUNTER 2021-07-10 08:22 | Outpatient (CLI) | payer MEDICAID | END 2021-07-10 23:59 | disposition home or self-care (01) | LOC: WOUND 08:22 → CFH 23:59 | PROVIDERS: ATTEND Internal Medicine | DX: E11.622 Type 2 diabetes mellitus with other skin ulcer (principal); L97.815 Non-pressure chronic ulcer of other part of right lower leg with muscle involvement without evidence of necrosis; L97.212 Non-pressure chronic ulcer of right calf with fat layer exposed; S81.801D Unspecified open wound, right lower leg, subsequent encounter; M72.6 Necrotizing fasciitis; B95.62 Methicillin resistant Staphylococcus aureus infection as the cause of diseases classified elsewhere; E11.52 Type 2 diabetes mellitus with diabetic peripheral angiopathy with gangrene; I96 Gangrene, not elsewhere classified; M16.0 Bilateral primary osteoarthritis of hip; I11.0 Hypertensive heart disease with heart failure; I50.32 Chronic diastolic (congestive) heart failure; D63.8 Anemia in other chronic diseases classified elsewhere; E78.5 Hyperlipidemia, unspecified; E11.610 Type 2 diabetes mellitus with diabetic neuropathic arthropathy; F32.9 Major depressive disorder, single episode, unspecified; F12.90 Cannabis use, unspecified, uncomplicated; I77.1 Stricture of artery; L84 Corns and callosities; Z87.891 Personal history of nicotine dependence; Z79.4 Long term (current) use of insulin; Z79.899 Other long term (current) drug therapy; Z20.822 Contact with and (suspected) exposure to COVID-19; X58.XXXD Exposure to other specified factors, subsequent encounter | CPT/HCPCS: 29580 ==

== ENCOUNTER → 2021-07-10 | Outpatient (CLI) | payer MEDICAID | END | disposition home or self-care (01) | LOC: RAD 08:43 | PROVIDERS: ATTEND Internal Medicine | DX: M72.6 Necrotizing fasciitis (principal); E11.8 Type 2 diabetes mellitus with unspecified complications; L97.212 Non-pressure chronic ulcer of right calf with fat layer exposed | CPT/HCPCS: 71046 ==

== ENCOUNTER → 2021-07-13 | Outpatient (CLI) | payer MEDICAID | END | disposition home or self-care (01) | LOC: WOUND 09:49 | PROVIDERS: ATTEND Surgery | DX: E11.622 Type 2 diabetes mellitus with other skin ulcer (principal); L97.212 Non-pressure chronic ulcer of right calf with fat layer exposed; S81.801D Unspecified open wound, right lower leg, subsequent encounter; L03.115 Cellulitis of right lower limb; M72.6 Necrotizing fasciitis; B95.62 Methicillin resistant Staphylococcus aureus infection as the cause of diseases classified elsewhere; E11.52 Type 2 diabetes mellitus with diabetic peripheral angiopathy with gangrene; I96 Gangrene, not elsewhere classified; M16.0 Bilateral primary osteoarthritis of hip; I11.0 Hypertensive heart disease with heart failure; I50.32 Chronic diastolic (congestive) heart failure; D63.8 Anemia in other chronic diseases classified elsewhere; E78.5 Hyperlipidemia, unspecified; E11.610 Type 2 diabetes mellitus with diabetic neuropathic arthropathy; F32.9 Major depressive disorder, single episode, unspecified; F12.90 Cannabis use, unspecified, uncomplicated; I77.1 Stricture of artery; L84 Corns and callosities; Z87.891 Personal history of nicotine dependence; Z79.4 Long term (current) use of insulin; Z79.899 Other long term (current) drug therapy; Z20.822 Contact with and (suspected) exposure to COVID-19; X58.XXXD Exposure to other specified factors, subsequent encounter | CPT/HCPCS: 99214 ==

== ENCOUNTER 2021-07-15 09:00 | Outpatient (CLI) | payer MEDICAID | END 2021-07-15 23:59 | disposition home or self-care (01) | LOC: WOUND 09:00 | PROVIDERS: ATTEND Internal Medicine | DX: E11.622 Type 2 diabetes mellitus with other skin ulcer (principal); L97.815 Non-pressure chronic ulcer of other part of right lower leg with muscle involvement without evidence of necrosis; M72.6 Necrotizing fasciitis; B95.62 Methicillin resistant Staphylococcus aureus infection as the cause of diseases classified elsewhere; E11.52 Type 2 diabetes mellitus with diabetic peripheral angiopathy with gangrene; I96 Gangrene, not elsewhere classified; M16.0 Bilateral primary osteoarthritis of hip; I11.0 Hypertensive heart disease with heart failure; I50.32 Chronic diastolic (congestive) heart failure; D63.8 Anemia in other chronic diseases classified elsewhere; E78.5 Hyperlipidemia, unspecified; L84 Corns and callosities; I77.1 Stricture of artery; E11.610 Type 2 diabetes mellitus with diabetic neuropathic arthropathy; F32.9 Major depressive disorder, single episode, unspecified; F12.90 Cannabis use, unspecified, uncomplicated; Z79.4 Long term (current) use of insulin; Z79.899 Other long term (current) drug therapy; Z87.891 Personal history of nicotine dependence; Z20.822 Contact with and (suspected) exposure to COVID-19 | CPT/HCPCS: 97597; 97598 ==

== ENCOUNTER 2021-07-22 09:30 | Outpatient (CLI) | payer MEDICAID | END 2021-07-22 23:59 | disposition home or self-care (01) | LOC: WOUND 09:30 | PROVIDERS: ATTEND Internal Medicine | DX: E11.622 Type 2 diabetes mellitus with other skin ulcer (principal); L97.815 Non-pressure chronic ulcer of other part of right lower leg with muscle involvement without evidence of necrosis; L97.215 Non-pressure chronic ulcer of right calf with muscle involvement without evidence of necrosis; M72.6 Necrotizing fasciitis; B95.62 Methicillin resistant Staphylococcus aureus infection as the cause of diseases classified elsewhere; E11.52 Type 2 diabetes mellitus with diabetic peripheral angiopathy with gangrene; I96 Gangrene, not elsewhere classified; M16.0 Bilateral primary osteoarthritis of hip; I11.0 Hypertensive heart disease with heart failure; I50.32 Chronic diastolic (congestive) heart failure; D63.8 Anemia in other chronic diseases classified elsewhere; E78.5 Hyperlipidemia, unspecified; E11.610 Type 2 diabetes mellitus with diabetic neuropathic arthropathy; F32.9 Major depressive disorder, single episode, unspecified; F12.90 Cannabis use, unspecified, uncomplicated; I77.1 Stricture of artery; L84 Corns and callosities; Z87.891 Personal history of nicotine dependence; Z79.4 Long term (current) use of insulin; Z79.899 Other long term (current) drug therapy; Z20.822 Contact with and (suspected) exposure to COVID-19 | CPT/HCPCS: 97597; 97598 ==

== ENCOUNTER 2021-07-24 11:10 | Outpatient (CLI) | payer MEDICAID | END 2021-07-24 23:59 | disposition home or self-care (01) | LOC: WOUND 11:10 | PROVIDERS: ATTEND Internal Medicine | DX: E11.622 Type 2 diabetes mellitus with other skin ulcer (principal); L97.815 Non-pressure chronic ulcer of other part of right lower leg with muscle involvement without evidence of necrosis; L97.215 Non-pressure chronic ulcer of right calf with muscle involvement without evidence of necrosis; M72.6 Necrotizing fasciitis; B95.62 Methicillin resistant Staphylococcus aureus infection as the cause of diseases classified elsewhere; E11.52 Type 2 diabetes mellitus with diabetic peripheral angiopathy with gangrene; I96 Gangrene, not elsewhere classified; M16.0 Bilateral primary osteoarthritis of hip; I11.0 Hypertensive heart disease with heart failure; I50.32 Chronic diastolic (congestive) heart failure; D63.8 Anemia in other chronic diseases classified elsewhere; E78.5 Hyperlipidemia, unspecified; E11.610 Type 2 diabetes mellitus with diabetic neuropathic arthropathy; F32.9 Major depressive disorder, single episode, unspecified; F12.90 Cannabis use, unspecified, uncomplicated; I77.1 Stricture of artery; L84 Corns and callosities; Z87.891 Personal history of nicotine dependence; Z79.4 Long term (current) use of insulin; Z79.899 Other long term (current) drug therapy; Z20.822 Contact with and (suspected) exposure to COVID-19 | CPT/HCPCS: 99213 ==

== ENCOUNTER 2021-07-29 07:38 | Outpatient (CLI) | payer MEDICAID | END 2021-07-29 23:59 | disposition home or self-care (01) | LOC: WOUND 07:38 | PROVIDERS: ATTEND Internal Medicine | DX: E11.622 Type 2 diabetes mellitus with other skin ulcer (principal); L97.815 Non-pressure chronic ulcer of other part of right lower leg with muscle involvement without evidence of necrosis; L97.215 Non-pressure chronic ulcer of right calf with muscle involvement without evidence of necrosis; M72.6 Necrotizing fasciitis; B95.62 Methicillin resistant Staphylococcus aureus infection as the cause of diseases classified elsewhere; E11.52 Type 2 diabetes mellitus with diabetic peripheral angiopathy with gangrene; I96 Gangrene, not elsewhere classified; M16.0 Bilateral primary osteoarthritis of hip; I11.0 Hypertensive heart disease with heart failure; I50.32 Chronic diastolic (congestive) heart failure; D63.8 Anemia in other chronic diseases classified elsewhere; E78.5 Hyperlipidemia, unspecified; E11.610 Type 2 diabetes mellitus with diabetic neuropathic arthropathy; F32.9 Major depressive disorder, single episode, unspecified; F12.90 Cannabis use, unspecified, uncomplicated; I77.1 Stricture of artery; L84 Corns and callosities; Z87.891 Personal history of nicotine dependence; Z79.4 Long term (current) use of insulin; Z79.899 Other long term (current) drug therapy; Z20.822 Contact with and (suspected) exposure to COVID-19 | CPT/HCPCS: 97597; 97598 ==

== ENCOUNTER 2021-08-14 09:11 | Outpatient (CLI) | payer MEDICAID | END 2021-08-14 23:59 | disposition home or self-care (01) | LOC: WOUND 09:11 | PROVIDERS: ATTEND Internal Medicine | DX: E11.622 Type 2 diabetes mellitus with other skin ulcer (principal); L97.812 Non-pressure chronic ulcer of other part of right lower leg with fat layer exposed; M72.6 Necrotizing fasciitis; B95.62 Methicillin resistant Staphylococcus aureus infection as the cause of diseases classified elsewhere; E11.52 Type 2 diabetes mellitus with diabetic peripheral angiopathy with gangrene; I96 Gangrene, not elsewhere classified; M16.0 Bilateral primary osteoarthritis of hip; I11.0 Hypertensive heart disease with heart failure; I50.32 Chronic diastolic (congestive) heart failure; D63.8 Anemia in other chronic diseases classified elsewhere; E78.5 Hyperlipidemia, unspecified; E11.610 Type 2 diabetes mellitus with diabetic neuropathic arthropathy; F32.9 Major depressive disorder, single episode, unspecified; F12.90 Cannabis use, unspecified, uncomplicated; I77.1 Stricture of artery; L84 Corns and callosities; Z87.891 Personal history of nicotine dependence; Z79.4 Long term (current) use of insulin; Z79.899 Other long term (current) drug therapy; Z20.822 Contact with and (suspected) exposure to COVID-19 | CPT/HCPCS: 97597; 97598 ==

== ENCOUNTER → 2021-08-21 | Outpatient (CLI) | payer MEDICAID | END | disposition home or self-care (01) | LOC: WOUND 09:23 | PROVIDERS: ATTEND Internal Medicine | DX: E11.622 Type 2 diabetes mellitus with other skin ulcer (principal); L97.812 Non-pressure chronic ulcer of other part of right lower leg with fat layer exposed; M72.6 Necrotizing fasciitis; B95.62 Methicillin resistant Staphylococcus aureus infection as the cause of diseases classified elsewhere; E11.52 Type 2 diabetes mellitus with diabetic peripheral angiopathy with gangrene; I96 Gangrene, not elsewhere classified; M16.0 Bilateral primary osteoarthritis of hip; I11.0 Hypertensive heart disease with heart failure; I50.32 Chronic diastolic (congestive) heart failure; D63.8 Anemia in other chronic diseases classified elsewhere; E78.5 Hyperlipidemia, unspecified; E11.610 Type 2 diabetes mellitus with diabetic neuropathic arthropathy; F32.9 Major depressive disorder, single episode, unspecified; F12.90 Cannabis use, unspecified, uncomplicated; I77.1 Stricture of artery; L84 Corns and callosities; Z87.891 Personal history of nicotine dependence; Z79.4 Long term (current) use of insulin; Z79.899 Other long term (current) drug therapy; Z20.822 Contact with and (suspected) exposure to COVID-19 | CPT/HCPCS: 97597; 97598 ==